=== PATIENT | female | born 1945 | race Caucasian/White ===

== ENCOUNTER → 2017-11-28 07:16 | Outpatient (CLI) | payer MEDICARE, OTHER, SELFPAY ==
--- NOTE | 2017-11-28 08:06 | DI.CT.S_ITS ---
PROCEDURE: CT CHEST ABD PEL W CON INDICATIONS: restaging after adjuvant chemotherapy. Endometrial cancer. TECHNIQUE: After the administration of oral and intravenous contrast, 5 mm thick sections acquired from the lung apices to the symphysis. 5 mm coronal and sagittal reformats were performed, with additional 7 mm coronal MIP reformats through the lungs. For radiation dose reduction, the following was used: automated exposure control, adjustment of mA and/or kV according to patient size. COMPARISON: [facility], CT, CHEST/ABD/PEL WITH CONTRAST, 05/23/2017, 7:42. FINDINGS: Image quality: Excellent. CHEST: Lungs and pleura: There is interval significant decrease in the amount of right pleural effusion with trace amount of residual right pleural effusion seen and mild adjacent bibasilar dependent atelectasis. No left-sided pleural effusion is noted. Trace amount of fluid and atelectasis along right major fissure is seen, significantly decreased since previous study. Previously described 5 mm right middle lobe nodule remains stable in size and appearance series 3 image 34.. Previously described 5 mm left lower lobe nodular density is no longer present and likely represent resolved atelectasis. Previously described 1.8 x 0.9 cm posterior right lower pleural thickening is again seen and not significantly changed. Series 2 image 50. No new pulmonary nodule or mass is seen. Central and peripheral airways appear patent and normal in caliber. Mediastinum: Heart size is normal. No pericardial effusion. No mediastinal or hilar adenopathy by size criteria. Thoracic aorta and central pulmonary arteries are normal in size. Esophagus is normal in caliber. No hiatal hernia. Right chest wall Port-A-Cath is again seen and unchanged. Chest wall: No axillary or supraclavicular adenopathy by size criteria. Thyroid gland again show well-circumscribed hypodensity involving inferior left thyroid lobe unchanged from prior study and may represent benign thyroid adenoma. Previously described right fifth rib sclerosis is not appreciated on the current study. ABDOMEN: Solid organs: Liver is normal in size and enhancement. Gallbladder is within normal limits. Biliary system is non dilated. Pancreas enhances normally. Spleen is normal in size and enhancement. No adrenal nodules. Bilateral parapelvic renal cysts are again seen. Mild prominence of right proximal to mid ureter is again noted, unchanged from prior study. No obstructing stone is noted. Peritoneum and bowel: Bowel loops demonstrate normal wall thickness and caliber. No free fluid or air. Fecal stasis throughout the colon is seen suggestive of mild constipation. Nodes and vessels: Previously described 4 x 0.9 cm ill-defined spiculated density in right paracentral posterior mesentery is not significantly changed in size and appearance. No gross mesenteric or retroperitoneal adenopathy is seen. IVC is normal in size. Stable ectasia of distal abdominal aorta is again seen and is unchanged in size and appearance. Small amount of contrast extending to mural thrombus is again seen at the level of ectasia and is unchanged. Miscellaneous: No ventral hernias. PELVIS: Genitourinary: Bladder wall thickness is normal. There is interval hysterectomy. No gross soft tissue mass is seen in the region of vaginal cuff. Miscellaneous: No inguinal hernias or adenopathy. Bones: No suspicious bony lesions. Stable and benign appearing sclerotic foci are again noted in right femoral head and right anterior acetabulum. No vertebral body compression fractures. IMPRESSION: 1. Interval significant decrease in amount of right-sided pleural effusion with trace amount of residual right pleural effusion and right basilar atelectasis. Interval significant decrease in amount of loculated fluid within right major fissure. 2. Stable 5 mm right middle lobe nodule likely represent benign process. Interval resolution of previously noted 5 mm left lower lobe nodule likely represent resolved focal infiltrate/atelectasis. Stable pleural thickening in posterior aspect of right lung base. 3. Stable appearance of spiculated density in posterior right paracentral mesentery. No evidence of adenopathy is seen in the chest, abdomen or pelvis. 4. Stable infrarenal abdominal aortic ectasia with thrombus formation a small amount of contrast extension, unchanged from previous study. 5. Stable bilateral parapelvic renal cysts and mild prominence of right proximal to mid-ureter. No obstructing renal stone is seen. 6. Interval hysterectomy. No discrete soft tissue mass is seen in the pelvis. Dictated by: Yassine Hale M.D. on 11/28/2017 at 10:59 Approved by: Yassine Hale M.D. on 11/28/2017 at 11:26
== END ==
PROVIDERS: Family Provider Family Medicine; PCP Family Medicine; Referring Provider Obstetrics & Gynecology; Visit Provider Internal Medicine Hematology & Oncology
DX: C54.1 Malignant neoplasm of endometrium (principal); R91.1 Solitary pulmonary nodule; N28.1 Cyst of kidney, acquired
CPT/HCPCS: 71260; 74177; Q9967

== ENCOUNTER → 2018-02-07 13:53 | Outpatient (CLI) | payer MEDICARE, OTHER, SELFPAY ==
--- NOTE | 2018-02-07 | DI.MG.S_ITS ---
BILATERAL DIGITAL SCREENING MAMMOGRAM 3D/2D WITH CAD: 02/07/2018 CLINICAL: Routine screening. Comparison is made to exams dated: 03/06/2013 mammogram, 09/15/2010 mammogram, 06/20/2009 mammogram, and 01/08/2007 mammogram - [facility]. The tissue of both breasts is heterogeneously dense. This may lower the sensitivity of mammography. Current study was also evaluated with a Computer Aided Detection (CAD) system. No significant masses, calcifications, or other findings are seen in either breast. There has been no significant interval change. IMPRESSION: NEGATIVE There is no mammographic evidence of malignancy. A 1 year screening mammogram is recommended. This exam was interpreted at Station ID: [id number]. NOTE: For mammograms, a report in lay terms will be sent to the patient. Approximately 15% of breast malignancies will not be visualized mammographically. In the management of a palpable breast mass, a negative mammogram must not discourage biopsy of a clinically suspicious lesion. Electronically Signed By: Chun hester/demarcus:02/07/2018 15:01:42 copy to: [facility], [facility], ph: [phone], fax: [phone] letter sent: Normal Exam ACR BI-RADS Category 1: Negative [id number]
== END ==
PROVIDERS: Family Provider Family Medicine; PCP Family Medicine; Visit Provider Family Medicine
DX: Z12.31 Encounter for screening mammogram for malignant neoplasm of breast (principal); M81.0 Age-related osteoporosis without current pathological fracture; Z78.0 Asymptomatic menopausal state
CPT/HCPCS: 77063; 77067; 77080

== ENCOUNTER → 2018-05-06 10:01 | Outpatient (CLI) | payer MEDICARE, OTHER, SELFPAY ==
--- NOTE | 2018-05-06 10:24 | DI.CT.S_ITS ---
PROCEDURE: CT CHEST ABD PEL W CON INDICATIONS: Surveillance TECHNIQUE: After the administration of oral and intravenous contrast, 5 mm thick sections acquired from the lung apices to the symphysis. 5 mm coronal and sagittal reformats were performed, with additional 7 mm coronal MIP reformats through the lungs. For radiation dose reduction, the following was used: automated exposure control, adjustment of mA and/or kV according to patient size. COMPARISON: [facility], CT, CHEST/ABD/PEL WITH CONTRAST, 05/23/2017, 7:42. [facility], CT, ABDOMEN/PELVIS WITH CONTRAST, 03/04/2017, 11:30. [facility], CT, CT CHEST ABD PEL W CON, 11/28/2017, 8:12. FINDINGS: Image quality: Excellent. CHEST: Lungs and pleura: A 4 mm diameter pulmonary nodule at the right lung base is less conspicuous than on the prior study dated 05/23/17 (series 3, image 37). A trace centrally hypodense, peripherally enhancing effusion is redemonstrated at the right lung base. Mediastinum: Heart size is normal. No pericardial effusion. No mediastinal or hilar adenopathy by size criteria. Thoracic aorta and central pulmonary arteries are normal in size. Scattered atheromatous calcifications are present within the aortic arch. Esophagus is normal in caliber. No hiatal hernia. Chest wall: No axillary or supraclavicular adenopathy by size criteria. A subcentimeter low density nodule is present within the left thyroid lobe. This appears slightly increased in size when compared with the study dated 05/23/17. ABDOMEN: Solid organs: Liver is normal in size and enhancement. Gallbladder is unremarkable. Biliary system is non dilated. Pancreas enhances normally. Spleen is normal in size and enhancement. No adrenal nodules. Kidneys demonstrate normal size and enhancement, without hydronephrosis. There are multiple bilateral low-density pararenal and cortical renal cysts. Cortical scarring is present within the right midpole suggesting old infection or infarct. Peritoneum and bowel: Bowel loops demonstrate normal wall thickness and caliber. No free fluid or air. Nodes and vessels: No retroperitoneal or mesenteric adenopathy by size criteria. The ill-defined region of mesenteric scarring within the right lower quadrant is less conspicuous than on the prior studies (series 2, images 79-82). A punctate focus of pneumoperitoneum persists in this region. Aorta and inferior vena cava are normal in size. Focal ectasia of the left aspect of the infrarenal abdominal aorta is redemonstrated. The neural thrombus is present along the lateral wall. Scattered atheromatous calcifications are present throughout the aorta and iliac arteries. Miscellaneous: No ventral hernias. PELVIS: Genitourinary: Bladder wall thickness is normal. Miscellaneous: No inguinal hernias or adenopathy. Bones: No suspicious bony lesions. No vertebral body compression fractures. IMPRESSION: 1. No findings to suggest tumor recurrence or metastasis. 2. Small, stable rim-enhancing pleural effusion at the right lung base. 3. Decreased conspicuity of the 4 mm right inferior lung nodule. 4. Decreased conspicuity of the probable mesenteric scar within the right lower quadrant. Dictated by: Vania Hernandez M.D. on 05/06/2018 at 14:01 Approved by: Vania Hernandez M.D. on 05/06/2018 at 14:20
== END ==
PROVIDERS: Family Provider Family Medicine; PCP Family Medicine; Visit Provider Nurse Practitioner Gerontology
DX: C54.9 Malignant neoplasm of corpus uteri, unspecified (principal); J90 Pleural effusion, not elsewhere classified
CPT/HCPCS: 36592; 71260; 74177; 80053; 85025; 86304; Q9967

== ENCOUNTER → 2018-08-08 13:21 | Outpatient (CLI) | payer MEDICARE, OTHER, SELFPAY ==
--- NOTE | 2018-08-08 14:10 | DI.CT.S_ITS ---
PROCEDURE: CT CHEST ABD PEL W CON INDICATIONS: rising tumor marker, Mullerian cancer TECHNIQUE: After the administration of oral and intravenous contrast, 5 mm thick sections acquired from the lung apices to the symphysis. 5 mm coronal and sagittal reformats were performed, with additional 7 mm coronal MIP reformats through the lungs. For radiation dose reduction, the following was used: automated exposure control, adjustment of mA and/or kV according to patient size. COMPARISON: [facility], CT, ABDOMEN/PELVIS WITH CONTRAST, 03/04/2017, 11:30. [facility], CT, CT CHEST ABD PEL W CON, 11/28/2017, 8:12. [facility], CT, CT CHEST ABD PEL W CON, 05/06/2018, 11:02. FINDINGS: Image quality: Excellent. CHEST: Lungs and pleura: Interval development of a well-defined mass or focal masslike consolidation in the posterior segment of the right upper lobe. Reference image 29/3. It measures 1.4 x 1.0 cm. No other pulmonary nodular densities. Development of mild pleural thickening along the major fissure of the right lung, possibly representing minimal fluid in the major fissure. Mild continued right basilar pleural thickening. Central and peripheral airways appear patent and normal in caliber. Mediastinum: Heart size is normal. No pericardial effusion. No mediastinal or hilar adenopathy by size criteria. Thoracic aorta and central pulmonary arteries are normal in size. Esophagus is normal in caliber. No hiatal hernia. Chest wall: No axillary or supraclavicular adenopathy by size criteria. Thyroid gland is unremarkable. ABDOMEN: Solid organs: Liver is normal in size and enhancement. Gallbladder is unremarkable. Biliary system is non dilated. Pancreas enhances normally. Spleen is normal in size and enhancement. No adrenal nodules. Extensive bilateral peripelvic renal cysts are present. The left ureter is of normal caliber. The right ureter is mildly chronically dilated. There is mild to moderate dilatation of the right renal collecting system. There is no delayed right nephrogram. The right ureter tapers to a normal caliber at approximately the midureter. Findings are stable. Peritoneum and bowel: Bowel loops demonstrate normal wall thickness and caliber. No free fluid or air. Nodes and vessels: No retroperitoneal or mesenteric adenopathy by size criteria. Aorta and inferior vena cava are normal in size. Miscellaneous: No ventral hernias. PELVIS: Genitourinary: Bladder wall thickness is normal. Miscellaneous: No inguinal hernias or adenopathy. Remote hysterectomy and bilateral resection of the ovaries. Bones: No suspicious bony lesions. No vertebral body compression fractures. IMPRESSION: 1. Question 1.4 x 1.0 cm metastatic lesion in the chest. 2. Remote hysterectomy and bilateral oophorectomy. 3. Stable mild right hydronephrosis and mild dilatation of the right ureter down to the level of the midureter. 4. Otherwise unremarkable CT abdomen and pelvis with contrast. Comment: Consider repeat chest CT in approximately 3 months to see whether the mass or masslike density in the right upper lobe resolves. Or, PET/CT may be helpful. Dictated by: Patel German M.D. on 08/08/2018 at 15:02 Approved by: Patel German M.D. on 08/08/2018 at 15:24
== END ==
PROVIDERS: PCP Family Medicine; Visit Provider Internal Medicine Hematology & Oncology
DX: C56.9 Malignant neoplasm of unspecified ovary (principal); N13.39 Other hydronephrosis; Q50.39 Other congenital malformation of ovary
CPT/HCPCS: 71260; 74177; Q9967

== ENCOUNTER → 2018-10-27 08:58 | Outpatient (CLI) | payer MEDICARE, OTHER, SELFPAY ==
--- NOTE | 2018-10-27 10:31 | DI.CT.S_ITS ---
PROCEDURE: CT ABDOMEN PELVIS W CON INDICATIONS: ovarian cancer TECHNIQUE: After the administration of oral and intravenous contrast, 5 mm thick sections acquired from the diaphragms to the symphysis. 5 mm thick coronal and sagittal reformats were performed. For radiation dose reduction, the following was used: automated exposure control, adjustment of mA and/or kV according to patient size. COMPARISON: [facility], CT, CHEST/ABD/PEL WITH CONTRAST, 05/23/2017, 7:42. [facility], CT, CT CHEST ABD PEL W CON, 11/28/2017, 8:12. [facility], CT, CT CHEST ABD PEL W CON, 05/06/2018, 11:02. [facility], CT, CT CHEST ABD PEL W CON, 08/08/2018, 14:09. [facility], CT, PE STUDY (CTA CHEST), 08/27/2016, 1:41. [facility], CT, ABDOMEN/PELVIS WITH CONTRAST, 03/04/2017, 11:30. FINDINGS: Image quality: Excellent. ABDOMEN: Lung bases: 4 mm pulmonary nodule is unchanged at the right lung base when compared with the CT dated 08/27/16. There is a small low density right pleural effusion which is slightly increased in size when compared with the CT dated 08/08/18. No left pleural effusion. Solid organs: Liver is normal in size and enhancement. Gallbladder is unremarkable. Biliary system is non-dilated. Pancreas enhances normally. Spleen is normal in size and enhancement. No adrenal nodules. There is likely dilatation of the right renal collecting system, and the superior ureter is moderately dilated. The ureter is abruptly tapered within the midportion which may be secondary to extrinsic compression from retroperitoneal scar or fibrosis. There are likely multiple left pararenal cysts. Several areas of focal cortical scarring are also present within the right kidney suggesting prior infarct or infection. Peritoneum and bowel: Stomach, small bowel, and colon loops are normal in caliber and wall thickness. The appendix is thin walled and gas filled. There are scattered sigmoid diverticula. No evidence for diverticulitis. No free fluid or air. Nodes and vessels: No retroperitoneal or mesenteric adenopathy. Aorta and inferior vena cava are normal in caliber. There are scattered atheromatous calcifications throughout the aorta and iliac arteries bilaterally. Miscellaneous: No ventral hernias. PELVIS: Genitourinary: Bladder wall thickness is normal. Miscellaneous: No inguinal hernias or adenopathy. Bones: No suspicious bony lesions. No vertebral body compression fractures. IMPRESSION: 1. No findings to suggest tumor recurrence or metastasis. 2. Slight increase in the size of the pleural effusion when compared with the study from July 2018. 3. Probable chronic dilatation of the right renal collecting system, although multiple pararenal cyst could also be considered in the differential. There is slightly increased dilatation of the superior right ureter suggesting partial obstruction in the midportion likely secondary to retroperitoneal scar or fibrosis. Dictated by: Vania Hernandez M.D. on 10/27/2018 at 11:26 Approved by: Vania Hernandez M.D. on 10/27/2018 at 11:39
== END ==
PROVIDERS: Family Provider Obstetrics & Gynecology; PCP Family Medicine; Visit Provider Internal Medicine Hematology & Oncology
DX: C56.9 Malignant neoplasm of unspecified ovary (principal); R91.1 Solitary pulmonary nodule; J90 Pleural effusion, not elsewhere classified
CPT/HCPCS: 74177; Q9967

== ENCOUNTER → 2018-12-18 09:57 | Outpatient (CLI) | payer MEDICARE, OTHER, SELFPAY ==
--- NOTE | 2018-12-18 10:12 | DI.CT.S_ITS ---
PROCEDURE: CT CHEST ABD PEL W CON INDICATIONS: ABD PAIN, CHEST PAINS TECHNIQUE: After the administration of oral and intravenous contrast, 5 mm thick sections acquired from the lung apices to the symphysis. 5 mm coronal and sagittal reformats were performed, with additional 7 mm coronal MIP reformats through the lungs. For radiation dose reduction, the following was used: automated exposure control, adjustment of mA and/or kV according to patient size. COMPARISON: [facility], CT, PE STUDY (CTA CHEST), 08/27/2016, 1:41. [facility], CT, CT ABDOMEN PELVIS W CON, 10/27/2018, 10:01. [facility], NM, NM PET CT FUSION SKULL 2 THIGH, 08/20/2018, 16:58. [facility], CT, CT CHEST ABD PEL W CON, 11/28/2017, 8:12. [facility], CT, CT CHEST ABD PEL W CON, 08/08/2018, 14:09. [facility], CT, CT CHEST ABD PEL W CON, 05/06/2018, 11:02. FINDINGS: Image quality: Excellent. CHEST: Lungs and pleura: No acute airspace opacities but there has been a significant interval increase in pleural effusion on the right with a component of both lungs scarring and atelectasis at the right lower lobe.. No pleural effusions or pneumothorax. Central and peripheral airways appear patent and normal in caliber. Mediastinum: Heart size is normal. No pericardial effusion. No mediastinal or hilar adenopathy by size criteria. Thoracic aorta and central pulmonary arteries are normal in size. Esophagus is normal in caliber. No hiatal hernia. Chest wall: No axillary or supraclavicular adenopathy by size criteria. Thyroid gland appears normal where well visualized. ABDOMEN: Solid organs: Liver is normal in size and enhancement. Gallbladder is partially contracted, free of inflammation or calculus. Biliary system is non dilated. Pancreas enhances normally. Spleen is normal in size and enhancement. No adrenal nodules. 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 Renal cortical thinning has not developed despite this pattern of collecting system prominence at least from August of 2016. No urinary tract stones are found. Peritoneum and bowel: Bowel loops demonstrate normal wall thickness and caliber. No free fluid or air. Nodes and vessels: No retroperitoneal or mesenteric adenopathy by size criteria. Aorta and inferior vena cava are normal in size. Miscellaneous: No ventral hernias. PELVIS: Genitourinary: Bladder wall thickness is normal. Miscellaneous: No inguinal hernias or adenopathy. Bones: No suspicious bony lesions. No vertebral body compression fractures. IMPRESSION: 1. There has been an appreciable increase in right pleural fluid raising concern for possible development of pleural carcinomatosis in this clinical circumstance of underlying ovarian carcinoma. 2. Right lung base atelectasis and scarring has increased with reference to the recent prior CT scanning from October of this year. 3. 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 This pattern has been previously present including in August of 2016 without interval development of renal cortical thinning or worsening of the hydronephrosis pattern. 4. Within the peritoneal space no abnormal ascites or evidence of omental caking or carcinomatosis is found. 5. It may be warranted to perform ultrasound-guided thoracentesis to assess for presence or absence of viable malignant cells within the right pleural space. Dictated by: Albino Patel M.D. on 12/18/2018 at 17:01 Approved by: Albino Patel M.D. on 12/18/2018 at 17:09
== END ==
PROVIDERS: Family Provider Obstetrics & Gynecology; PCP Family Medicine; Visit Provider Internal Medicine Hematology & Oncology
DX: J98.11 Atelectasis (principal); C56.9 Malignant neoplasm of unspecified ovary
CPT/HCPCS: 71260; 74177; Q9967

== ENCOUNTER → 2019-01-27 08:21 | Outpatient (CLI) | payer MEDICARE, OTHER, SELFPAY ==
--- NOTE | 2019-01-27 09:48 | DI.CT.S_ITS ---
PROCEDURE: CT CHEST ABD PEL W CON INDICATIONS: ovarian cancer TECHNIQUE: After the administration of oral and intravenous contrast, 5 mm thick sections acquired from the lung apices to the symphysis. 5 mm coronal and sagittal reformats were performed, with additional 7 mm coronal MIP reformats through the lungs. For radiation dose reduction, the following was used: automated exposure control, adjustment of mA and/or kV according to patient size. COMPARISON: [facility], CT, CT ABDOMEN PELVIS W CON, 10/27/2018, 10:01. [facility], NM, NM PET CT FUSION SKULL 2 THIGH, 08/20/2018, 16:58. [facility], CT, CT CHEST ABD PEL W CON, 08/08/2018, 14:09. [facility], CT, CT CHEST ABD PEL W CON, 05/06/2018, 11:02. [facility], CT, CT CHEST ABD PEL W CON, 11/28/2017, 8:12. [facility], CT, CT CHEST ABD PEL W CON, 12/18/2018, 10:51. FINDINGS: Image quality: Excellent. CHEST: Lungs and pleura: No acute consolidation. Scattered subsegmental atelectasis and/or scarring. Interval decrease in size of loculated appearing right pleural effusion with adjacent atelectasis. There is fissural fluid was also decreased. There is some pleural enhancement at the lung base raising possibility of exudative etiology. No pneumothorax. No left pleural effusion Mediastinum: Heart size is borderline enlarged. No pericardial effusion. Prominent precarinal lymph node on image 22 series 2 appears grossly unchanged in size. No pathologically enlarged hilar lymph nodes identified. Thoracic aorta and central pulmonary arteries are normal in size. Esophagus is normal in caliber. No hiatal hernia. Chest wall: No axillary or supraclavicular adenopathy by size criteria. Thyroid gland negative. ABDOMEN: Solid organs: Hepatic steatosis. No focal hepatic lesion identified. Gallbladder negative. Biliary system is non dilated. Pancreas enhances normally. Spleen is normal in size and enhancement. No adrenal nodules. Bilateral parapelvic cysts versus bilateral UPJ stenoses with grossly unchanged appearance. There is bilateral renal cortical thinning and mild atrophy/scarring, also unchanged Peritoneum and bowel: Bowel loops demonstrate normal wall thickness and caliber. No free fluid or air. Nodes and vessels: No retroperitoneal or mesenteric adenopathy by size criteria. Aorta and inferior vena cava are normal in size. Miscellaneous: No ventral hernias. PELVIS: Genitourinary: No pelvic mass identified. The bladder is grossly unremarkable. No adnexal abnormality is seen to suggest active metastatic disease. Rectum grossly unremarkable Miscellaneous: No inguinal hernias or adenopathy. Bones: No suspicious bony lesions. No vertebral body compression fractures. Diffuse spondylosis IMPRESSION: Decreasing, loculated right pleural effusion, including the fissural component. Technically, still unclear etiology. Elsewhere, grossly stable examination with no specific evidence of active metastatic disease. Additional chronic and incidental findings as above. Dictated by: Abdi Dunham M.D. on 01/27/2019 at 11:15 Approved by: Abdi Dunham M.D. on 01/27/2019 at 11:27
== END ==
PROVIDERS: Family Provider Obstetrics & Gynecology; PCP Family Medicine; Visit Provider Internal Medicine Hematology & Oncology
DX: C56.9 Malignant neoplasm of unspecified ovary (principal); K76.0 Fatty (change of) liver, not elsewhere classified
CPT/HCPCS: 71260; 74177; Q9967

== ENCOUNTER → 2019-03-17 12:23 | Outpatient (CLI) | payer MEDICARE, OTHER, SELFPAY ==
--- NOTE | 2019-03-17 13:06 | DI.CT.S_ITS ---
PROCEDURE: CT CHEST ABD PEL W CON INDICATIONS: ovarian cancer TECHNIQUE: After the administration of oral and intravenous contrast, 5 mm thick sections acquired from the lung apices to the symphysis. 5 mm coronal and sagittal reformats were performed, with additional 7 mm coronal MIP reformats through the lungs. For radiation dose reduction, the following was used: automated exposure control, adjustment of mA and/or kV according to patient size. COMPARISON: [facility], CT, CT CHEST ABD PEL W CON, 01/27/2019, 9:35. [facility], CT, CT CHEST ABD PEL W CON, 12/18/2018, 10:51. [facility], CT, CT CHEST ABD PEL W CON, 08/08/2018, 14:09. [facility], CT, CHEST/ABD/PEL WITH CONTRAST, 05/23/2017, 7:42. [facility], CT, THORAX WITH CONTRAST, 10/09/2016, 13:32. [facility], CT, PE STUDY (CTA CHEST), 08/27/2016, 1:41. FINDINGS: Image quality: Diagnostic. CHEST: Lungs and pleura: Previously mentioned a small right-sided pleural effusion extending along the major pulmonary fissure continues to decrease in size. No new pulmonary consolidation is evident. There is no pneumothorax. No lung masses appreciated. A subcentimeter nodule identified along the inferior margin of the right middle lobe is unchanged in size since multiple prior exams. No new pulmonary nodules are appreciated. Mediastinum: Mildly prominent precarinal lymph node is again evident, which is unchanged in size since the previous exam and measures up to approximately 9 mm in short axis (image 25, series 2). Heart size is normal. No pericardial effusion. Thoracic aorta and central pulmonary arteries are normal in size. There is aortic atherosclerosis. Esophagus is normal in caliber. No hiatal hernia. Chest wall and bones: No axillary or supraclavicular adenopathy by size criteria. No acute fracture or suspicious osseous lesion is identified. The degree of degenerative changes of the imaged spine have not significantly progressed. ABDOMEN: Solid organs: Liver is normal in size and enhancement. Gallbladder is not enlarged or inflamed. Biliary system is non dilated. Pancreas enhances normally. Spleen is normal in size and enhancement. No adrenal nodules. The kidneys are normal in size. Multiple cystic structures are seen within the bilateral renal pelvises. This appearance is similar to the prior study. However, there is enlargement of the right ureter with irregularity of the amor of the ureter and associated urothelial enhancement along the proximal aspect of the ureter. The left ureter is normal in course and caliber. No ureteral calculi are present. No renal calculi are evident. Areas of scarring involving the right kidney are again evident. The enhancement is symmetric when compared to the left kidney. Peritoneum and bowel: There is a small hiatal hernia. The stomach is otherwise unremarkable. There is mild stranding about the 2nd portion of the duodenum. Heterogeneity of the mesentery at this location of the inferior margin of the duodenum is present (image 78, series 2). This area of mesenteric edema is also located in a very close proximity to the appendix. The appendix appears to be normal in size, however. A moderate to large amount of residual stool is seen within the colon. No free fluid or loculated fluid collection is seen within the abdomen. No free air is evident. Nodes and vessels: No retroperitoneal or mesenteric adenopathy by size criteria. Aorta and inferior vena cava are normal in size. A saccular aneurysm arising from the infrarenal abdominal aorta above the level of the mesenteric artery takeoff and is unchanged since prior studies with the aneurysm sac measuring 2.5 x 1.7 x 2.1 cm (image 69, series 2). Bones: No acute fracture or suspicious osseous lesion is evident. Moderate degenerative changes of the lower lumbar spine are present. PELVIS: Genitourinary: Bladder wall thickness is normal. The uterus and ovaries are surgically absent. Miscellaneous: No inguinal hernias or adenopathy. No free fluid or loculated fluid collection is evident. Bones: No suspicious bony lesions. No acute pelvic fractures are evident. IMPRESSION: 1. Borderline prominent mediastinal lymph nodes. 2. No convincing evidence of metastatic disease to the chest, abdomen, or pelvis. 3. Small right-sided pleural effusion continues to decrease in size with corresponding atelectasis. 4. Unchanged right middle lobe pulmonary nodule. No new pulmonary nodules. 5. Enlarged heterogeneous proximal right ureter with adjacent mesenteric stranding along the inferior margin of the duodenum and adjacent to the appendix is of uncertain etiology and similar to multiple prior exams. This may represent scarring from previous infection, focal fibrotic change, mesenteric metastases, or chronic infection from either a duodenal or ureter source. Clinical correlation is recommended. Ureteroscopy may be of value. 6. 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 Dictated by: Yuri Mcdaniel M.D. on 03/17/2019 at 12:33 Approved by: Yuri Mcdaniel M.D. on 03/17/2019 at 12:59
== END ==
PROVIDERS: Family Provider Obstetrics & Gynecology; PCP Family Medicine; Visit Provider Internal Medicine Hematology & Oncology
DX: C56.9 Malignant neoplasm of unspecified ovary (principal); R59.0 Localized enlarged lymph nodes; I71.4 Abdominal aortic aneurysm, without rupture; R91.1 Solitary pulmonary nodule; J90 Pleural effusion, not elsewhere classified; R05 Cough; K44.9 Diaphragmatic hernia without obstruction or gangrene; J98.11 Atelectasis
CPT/HCPCS: 71260; 74177; 96523; Q9967

== ENCOUNTER → 2019-06-29 09:35 | Outpatient (CLI) | payer MEDICARE, OTHER, SELFPAY ==
--- NOTE | 2019-06-29 10:43 | DI.CT.S_ITS ---
PROCEDURE: CT CHEST ABD PEL W CON INDICATIONS: ovarian cancer TECHNIQUE: After the administration of oral and intravenous contrast, 5 mm thick sections acquired from the lung apices to the symphysis. 5 mm coronal and sagittal reformats were performed, with additional 7 mm coronal MIP reformats through the lungs. For radiation dose reduction, the following was used: automated exposure control, adjustment of mA and/or kV according to patient size. COMPARISON: [facility], CT, CT CHEST ABD PEL W CON, 03/17/2019, 13:13. FINDINGS: Image quality: Excellent. CHEST: Lungs and pleura: Scarring/atelectasis scattered in bilateral lower lung ivan are again seen, unchanged from prior study. Patient's known 4-5 mm oval nodule in medial aspect of left upper lobe remains unchanged in size and appearance. No new pulmonary nodule or mass is seen. Previously described small amount of pleural effusion extending along right major fissure has further decreased in size now measures up to 5 mm in thickness compared to 1 cm on previous study. Trace right pleural effusion and adjacent right basilar dependent atelectasis is seen. No pneumothorax. No left-sided pleural effusion. Central and peripheral airways appear patent and normal in caliber. Mediastinum: Heart size is mildly enlarged. No pericardial effusion. Borderline enlarged mediastinal lymph nodes are noted measures up to 9 mm in precarinal space. Thoracic aorta and central pulmonary arteries are normal in size. Esophagus is normal in caliber. There is a small hiatal hernia. Chest wall: No axillary or supraclavicular adenopathy by size criteria. Thyroid gland is within normal limits. Right chest wall Port-A-Cath tip is in SVC. ABDOMEN: Solid organs: Liver is normal in size and enhancement. Gallbladder is unremarkable.. Biliary system is non dilated. Pancreas enhances normally. Spleen is normal in size and enhancement. No adrenal nodules. Bilateral kidneys are normal in size. Bilateral peripelvic renal cystic changes are again seen, unchanged from prior study. Prominence of bilateral proximal ureters are also noted with no obstructing stone seen. Finding has improved compared to previous study. No significant perinephric fat stranding is noted on the current study. The Peritoneum and bowel: Bowel loops demonstrate normal wall thickness and caliber. No free fluid or air. Nodes and vessels: No retroperitoneal or mesenteric adenopathy by size criteria. Atherosclerotic calcifications throughout dominal aorta is seen. Patient's known saccular infrarenal abdominal aortic aneurysm remains unchanged in size and appearance. Miscellaneous: No ventral hernias. PELVIS: Genitourinary: Diffuse bladder wall thickness is noted. No discrete bladder wall mass. Uterus and bilateral ovaries are surgically absent. Miscellaneous: No inguinal hernias or adenopathy. Bones: No suspicious bony lesions. No vertebral body compression fractures. Degenerative endplate changes throughout thoracic and lumbar spine is seen. IMPRESSION: 1. Interval further decrease in size of patient's known partially loculated right pleural effusion with adjacent right upper and lower lobe atelectasis. Stable right middle lobe nodule. No new pulmonary nodule is seen. Airway is patent. 2. Borderline prominent mediastinal lymph nodes up to 9 mm in size. 3. No abdominal or pelvic lymphadenopathy. 4. Suggestion of bilateral peripelvic cysts and prominence of bilateral proximal ureters worse on the right side unchanged or slightly improved since previous study. No obstructing renal stone or ureteral stone is seen. Mild diffuse bladder wall thickening, no discrete bladder wall mass. Finding could indicate changes from prior infection, focal fibrotic scarring, or chronic infection. 5. 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 Dictated by: Yassine Hale M.D. on 06/29/2019 at 12:15 Approved by: Yassine Hale M.D. on 06/29/2019 at 12:52
== END ==
PROVIDERS: Family Provider Obstetrics & Gynecology; PCP Family Medicine; Referring Provider Internal Medicine Hematology & Oncology; Visit Provider Internal Medicine Hematology & Oncology
DX: C56.9 Malignant neoplasm of unspecified ovary (principal); J90 Pleural effusion, not elsewhere classified; R91.1 Solitary pulmonary nodule; J98.11 Atelectasis; I71.4 Abdominal aortic aneurysm, without rupture
CPT/HCPCS: 36591; 71260; 74177; 80053; 85025; 86304; Q9967

== ENCOUNTER → 2020-01-19 11:16 | Outpatient (CLI) | payer MEDICARE, OTHER, SELFPAY ==
--- NOTE | 2020-01-19 | DI.MG.S_ITS ---
BILATERAL DIGITAL SCREENING MAMMOGRAM 3D/2D WITH CAD: 01/19/2020 CLINICAL: Routine screening. Comparison is made to exams dated: 02/07/2018 mammogram, 03/06/2013 mammogram, and 09/15/2010 mammogram - [facility]. The tissue of both breasts is heterogeneously dense. This may lower the sensitivity of mammography. Current study was also evaluated with a Computer Aided Detection (CAD) system. No significant masses, calcifications, or other findings are seen in either breast. There has been no significant interval change. IMPRESSION: NEGATIVE There is no mammographic evidence of malignancy. A 1 year screening mammogram is recommended. This exam was interpreted at Station ID: [id number]. NOTE: For mammograms, a report in lay terms will be sent to the patient. Approximately 15% of breast malignancies will not be visualized mammographically. In the management of a palpable breast mass, a negative mammogram must not discourage biopsy of a clinically suspicious lesion. Electronically Signed By: Shailesh Mendoza M.D., jr/demarcus:01/19/2020 11:42:29 letter sent: Normal Exam ACR BI-RADS Category 1: Negative [id number]
== END ==
PROVIDERS: Family Provider Obstetrics & Gynecology; PCP Family Medicine; Referring Provider Family Medicine; Visit Provider Family Medicine
DX: Z12.31 Encounter for screening mammogram for malignant neoplasm of breast (principal)
CPT/HCPCS: 77063; 77067

== ENCOUNTER → 2020-02-09 09:39 | Outpatient (CLI) | payer MEDICARE, OTHER, SELFPAY | PROVIDERS: Family Provider Obstetrics & Gynecology; PCP Family Medicine; Referring Provider Family Medicine; Visit Provider Family Medicine | DX: M81.0 Age-related osteoporosis without current pathological fracture (principal); Z78.0 Asymptomatic menopausal state; Z85.43 Personal history of malignant neoplasm of ovary | CPT/HCPCS: 77080 ==

== ENCOUNTER 2020-08-11 10:25 | Emergency (ER) | payer MEDICARE, OTHER, SELFPAY ==
[2020-08-11] VITALS (11 sets, daily range): BP systolic 124–172; BP diastolic 59–78; PULSE 52–72; RESP 16–27; O2SAT 94–100; BMI 28.5
--- NOTE | 2020-08-11 10:35 | DI.RAD.S_ITS ---
PROCEDURE: XR CHEST 1V INDICATIONS: chest pain TECHNIQUE: One view of the chest was acquired. COMPARISON: [facility], , CHEST 2 VIEW, 05/11/2017, 0:54. FINDINGS: Surgical changes and devices: Right chest wall Port-A-Cath tip is in SVC. Lungs and pleura: There is trace amount of right pleural effusion/thickening. Left lung is clear. No focal infiltrate. No pneumothorax. Mediastinum: Mediastinal contours appear normal. Heart size is enlarged. Bones and chest wall: No suspicious bony lesions. Overlying soft tissues appear unremarkable. IMPRESSION: Likely chronic right pleural thickening/trace pleural effusion. No focal infiltrate. No pneumothorax. Dictated by: Yassine Hale M.D. on 08/11/2020 at 10:08 Approved by: Yassine Hale M.D. on 08/11/2020 at 10:08
[2020-08-11 10:51] LABS: Add Manual Diff / Slide Review NO; Basophils Absolute Auto 0 /uL (0-100); Basophils Percent Auto 0.7 % (0-2); Eosinophils Absolute Auto 0 /uL (0-450); Eosinophils Percent Auto 0.9 % (2-4); Hematocrit 31.3 % (36-46); Hemoglobin 10.7 g/dL (12.0-16.0); Lymphocytes Absolute Auto 1300 /uL (1100-4500); Lymphocytes Percent Auto 37.4 % (25-40); Mean Corpuscular HGB Conc 34.2 % (30-36); Mean Corpuscular Hemoglobin 41.6 PG (26-34); Mean Corpuscular Volume 121.7 fL (80-100); Monocytes Absolute Auto 400 /uL (0-900); Monocytes Percent Auto 12.5 % (3-14); Neutrophils Absolute Auto 1700 /uL (1500-7000); Neutrophils Percent Auto 48.5 % (50-75); Platelet Count 115 X10^3/uL (150-400); Red Blood Cell Count 2.57 X10^6/uL (4.0-5.2); Red Cell Distribution Width 18.3 % (11.6-14.8); White Blood Cell Count 3.5 X10^3/uL (4.5-11.0)
[2020-08-11 10:53] LABS: Prothrombin Time 11.6 SECONDS (10.1-12.7)
[2020-08-11 10:56] LABS: PTT Partial Thromboplastin Tim 30 SECONDS (26.4-36.2)
[2020-08-11 10:58] LABS: Alanine Aminotransferase 19 IU/L (<35); Albumin 4.1 g/dL (3.5-5.0); Albumin Globulin Ratio 1.5 (1.0-2.8); Alkaline Phosphatase 49 U/L (38-126); Aspartate Aminotransferase 27 IU/L (14-36); BUN Creatinine Ratio 27.1 (6-22); Bilirubin Total 0.5 mg/dL (0.2-1.3); Blood Urea Nitrogen 23 mg/dL (7-17); Calcium 9.5 mg/dL (8.4-10.2); Carbon Dioxide 26 mmol/L (22-32); Chloride 107 mmol/L (98-107); Creatine Kinase 45 U/L (30-135); Estimated Glomerular Filt Rate > 60.0 mL/min (>60); Globulin 2.8 g/dL (1.7-4.1); Glucose 105 mg/dL (80-110); HEMOLYSIS < 15 (0-50); Lipase 92 U/L (23-300); Potassium 3.9 mmol/L (3.4-5.1); Sodium 140 mmol/L (137-145); Total Protein 6.9 g/dL (6.3-8.2)
[2020-08-11 11:09] LABS: Troponin I < 0.012 ng/mL (0.01-0.034)
[2020-08-11 11:12] LABS: Macrocytosis 3+
[2020-08-11 11:13] LABS: Anisocytosis 2+
[2020-08-11 11:14] LABS: Poikilocytosis 1+
--- NOTE | 2020-08-11 11:38 | ED_ITS ---
HPI - Chest Pain General Chief Complaint: Chest Pain Stated Complaint: woke up w/pain in upper chest Time Seen by Provider: 08/11/20 11:34 Source: patient Mode of arrival: Ambulatory Limitations: no limitations History of Present Illness HPI narrative: 75-year-old female with known adenocarcinoma suspicious for david erian adenocarcinoma, and hypertension presenting today with left-sided chest pain. She states that she woke up and noted some left-sided discomfort. She has a lipoma on over her left clavicle states that it was slightly below low that about rib 3. The she denies any radiation of pain no shortness of breath with exertion. It is not reproducible with movement or deep breathing. She took Tylenol p.m. [facility] her to see what she should do. She was referred to the ED for further evaluation. He says now that she has been in the emergency department the pain seems to have eased up. She has never had pain like this in the past. She says that her mother and 2 siblings have coronary stents but she has no known coronary artery disease. 1 of her brothers had stents under the age of 55. complaint: chest pain Onset (ago): hour(s) Duration: constant Onset: during rest Pain location: left chest Quality: sharp Related Data Home Medications Medication Instructions Recorded Confirmed benazepril 5 mg PO QDAY #0 06/26/16 06/06/20 metoprolol tartrate 25 mg PO DAILY 02/25/20 06/06/20 calcium 600 mg PO DAILY 04/07/20 06/06/20 chondroitin sulfate A sodium 1,200 mg PO DAILY 04/07/20 06/06/20 [Chondroitin Sulfate] cranberry 650 mg PO DAILY 04/07/20 06/06/20 glucosamine sulfate [Glucosamine] 1,500 mg DAILY 04/07/20 06/06/20 vitamin B complex [B Complex] 1 tab PO DAILY 04/07/20 06/06/20 alendronate 70 mg PO QWEEK 05/05/20 06/06/20 Previous Rx's Medication Instructions Recorded olaparib 300 mg PO BID #120 tab 06/11/19 Allergies Allergy/AdvReac Type Severity Reaction Status Date / Time No Known Allergies Allergy Unknown Verified 10/31/17 11:17 [NO KNOWN ALLERGIES] Review of Systems Review of Systems ROS Unobtainable: All systems reviewed & are unremarkable except as noted in HPI and below Constitutional Constitutional: Denies chills, Denies fever(s), Denies frequent falls, Denies headache(s), Denies lethargy and Denies weakness ENT Ears, Nose, Mouth, and Throat: Denies headache(s) Cardiovascular Cardiovascular: Reports as per HPI, Denies dyspnea and Denies dyspnea on exertion Respiratory Respiratory: Denies cough, Denies dyspnea, Denies dyspnea on exertion and Denies wheezing Gastrointestinal Gastrointestinal: Denies abdominal pain, Denies change in bowel habits, Denies diarrhea, Denies nausea and Denies vomiting Genitourinary Genitourinary: Denies urinary hesitancy and Denies urinary incontinence Genitourinary: Denies urinary incontinence and Denies urinary hesitancy Musculoskeletal Musculoskeletal: Denies back pain and Denies myalgias Integumentary/Breasts Skin/Breast: Denies pruritus, Denies erythema, Denies rash and Denies wounds Neurologic Neurologic: Denies frequent falls, Denies headache(s) and Denies weakness Allergic/Immunologic Allergic/Immunologic: Denies wheezing Patient History Medical History Atypical chest pain Cardiac arrhythmia, unspecified Malignant pleural effusion Pleural effusion Surgical History History of cataract removal with insertion of prosthetic lens Social History Smoking Status: Never smoker Smoking Status: Never smoker Substance Use Type: does not use Exam Initial Vital Signs Initial Vital Signs: Vital Signs Pulse Rate 67 08/11/20 10:34 Respiratory Rate 27 H 08/11/20 10:34 Pulse Oximetry 94 08/11/20 10:34 GENERAL: Very talkative 75-year-old and in no acute distress. HEENT: Head atraumatic,EOMI, pupils reactive, face symmetric, moist mucous membranesy] CARDIOVASCULAR: Regular rate and rhythm without murmurs, rubs or gallops. Lipoma noted over left clavicle. Pain is between ribs 3 and 4. Not re producible to palpation. No rash. RESPIRATORY: Breath sounds equal bilaterally, no wheezes rales or rhonchi. ABDOMEN: Soft, nontender. Normoactive bowel sounds all 4 quadrants. No guarding or rebound. EXTREMITIES: Normal range of motion, no clubbing or edema. Neurovascularly intact NEUROLOGICAL: Alert and oriented x4.Normal gait and speech. Cranial nerves II through XII grossly intact. SKIN: Warm, dry, no laceration, no petechiae, no rashes or lesions. Scores HEART Score Heart Score history: Slightly Suspicious Heart Score EKG: Normal Heart Score Age: > or = 65 years old Heart Score risk factors: No known risk factors Heart Score troponin: < or = to normal limit Heart Score Total: 2 Course Orders Ordered: ED Orders 08/11/20 10:35 XR chest 1V Stat EKG-12 Lead Stat 08/11/20 10:36 Complete Blood Count AUTO DIFF Stat Comprehensive Metabolic Panel Stat Lipase Stat Partial Thromboplastin Time Stat Prothrombin Time INR Stat Troponin & CK Cardiac Panel Stat 08/11/20 12:19 CT chest abd pel w con Stat 08/11/20 12:32 Troponin I Stat Vital Signs Vital signs: Vital Signs - 8 hr 08/11/20 10:34 08/11/20 10:38 08/11/20 11:00 Pulse Rate 67 69 57 L Respiratory Rate 27 H 16 20 Blood Pressure 172/78 H Pulse Oximetry 94 99 100 08/11/20 11:30 08/11/20 11:53 08/11/20 12:00 Pulse Rate 58 L 57 L 55 L Respiratory Rate 20 20 18 Blood Pressure 126/59 L 132/62 Pulse Oximetry 99 100 100 08/11/20 12:07 08/11/20 12:36 08/11/20 13:00 Pulse Rate 59 L 72 52 L Respiratory Rate 26 H 19 Blood Pressure 151/64 H 144/64 H Pulse Oximetry 100 100 08/11/20 13:30 08/11/20 14:00 Pulse Rate 55 L 57 L Respiratory Rate 21 24 Blood Pressure 154/70 H 124/60 Pulse Oximetry 100 99 MDM - Chest Pain Lab Data Attestation: I reviewed the patient's lab results. Result diagrams: 08/11/20 10:36 08/11/20 10:36 Labs: Lab Results 08/11/20 08/11/20 08/11/20 Range/Units 10:36 10:36 10:36 WBC 3.5 L (4.5-11.0) X10^3/uL RBC 2.57 L (4.0-5.2) X10^6/uL Hgb 10.7 L (12.0-16.0) g/dL Hct 31.3 L (36-46) % MCV 121.7 H (80-100) fL MCH 41.6 H (26-34) PG MCHC 34.2 (30-36) % RDW 18.3 H (11.6-14.8) % Plt Count 115 L (150-400) X10^3/uL Neut % (Auto) 48.5 L (50-75) % Lymph % (Auto) 37.4 (25-40) % [place] % (Auto) 12.5 (3-14) % Eos % (Auto) 0.9 L (2-4) % Baso % (Auto) 0.7 (0-2) % Neut # (Auto) 1700 (4956-1295) /uL Lymph # (Auto) 1300 (3288-7521) /uL [place] # (Auto) 400 (0-900) /uL Eos # (Auto) 0 (0-450) /uL Baso # (Auto) 0 (0-100) /uL RBC Morphology See below Poikilocytosis 1+ H Anisocytosis 2+ H Macrocytosis 3+ H PT 11.6 (10.1-12.7) SECONDS INR 1.0 (0.9-1.3) APTT 30 (26.4-36.2) SECONDS Sodium 140 (137-145) mmol/L Potassium 3.9 (3.4-5.1) mmol/L Chloride 107 (98-107) mmol/L Carbon Dioxide 26 (22-32) mmol/L BUN 23 H (7-17) mg/dL Creatinine 0.85 (0.52-1.04) mg/dL Estimated GFR > 60.0 (>60) mL/min BUN/Creatinine Ratio 27.1 H (6-22) Glucose 105 (80-110) mg/dL Calcium 9.5 (8.4-10.2) mg/dL Total Bilirubin 0.5 (0.2-1.3) mg/dL AST 27 (14-36) IU/L ALT 19 (<35) IU/L Alkaline Phosphatase 49 (38-126) U/L Total Creatine Kinase 45 (30-135) U/L CK-MB (CK-2) TNP CK-MB (CK-2) Rel Index TNP Troponin I < 0.012 (0.01-0.034) ng/mL Total Protein 6.9 (6.3-8.2) g/dL Albumin 4.1 (3.5-5.0) g/dL Globulin 2.8 (1.7-4.1) g/dL Albumin/Globulin Ratio 1.5 (1.0-2.8) Lipase 92 (23-300) U/L 08/11/20 Range/Units 12:32 WBC (4.5-11.0) X10^3/uL RBC (4.0-5.2) X10^6/uL Hgb (12.0-16.0) g/dL Hct (36-46) % MCV (80-100) fL MCH (26-34) PG MCHC (30-36) % RDW (11.6-14.8) % Plt Count (150-400) X10^3/uL Neut % (Auto) (50-75) % Lymph % (Auto) (25-40) % [place] % (Auto) (3-14) % Eos % (Auto) (2-4) % Baso % (Auto) (0-2) % Neut # (Auto) (4558-1647) /uL Lymph # (Auto) (3887-8940) /uL [place] # (Auto) (0-900) /uL Eos # (Auto) (0-450) /uL Baso # (Auto) (0-100) /uL RBC Morphology Poikilocytosis Anisocytosis Macrocytosis PT (10.1-12.7) SECONDS INR (0.9-1.3) APTT (26.4-36.2) SECONDS Sodium (137-145) mmol/L Potassium (3.4-5.1) mmol/L Chloride (98-107) mmol/L Carbon Dioxide (22-32) mmol/L BUN (7-17) mg/dL Creatinine (0.52-1.04) mg/dL Estimated GFR (>60) mL/min BUN/Creatinine Ratio (6-22) Glucose (80-110) mg/dL Calcium (8.4-10.2) mg/dL Total Bilirubin (0.2-1.3) mg/dL AST (14-36) IU/L ALT (<35) IU/L Alkaline Phosphatase (38-126) U/L Total Creatine Kinase (30-135) U/L CK-MB (CK-2) CK-MB (CK-2) Rel Index Troponin I < 0.012 (0.01-0.034) ng/mL Total Protein (6.3-8.2) g/dL Albumin (3.5-5.0) g/dL Globulin (1.7-4.1) g/dL Albumin/Globulin Ratio (1.0-2.8) Lipase (23-300) U/L Imaging Data Chest x-ray: Radiologist's Impression: PROCEDURE: XR CHEST 1V INDICATIONS: chest pain TECHNIQUE: One view of the chest was acquired. COMPARISON: [facility], CR, CHEST 2 VIEW, 05/11/2017, 0:54. FINDINGS: Surgical changes and devices: Right chest wall Port-A-Cath tip is in SVC. Lungs and pleura: There is trace amount of right pleural effusion/thickening. Left lung is clear. No focal infiltrate. No pneumothorax. Mediastinum: Mediastinal contours appear normal. Heart size is enlarged. Bones and chest wall: No suspicious bony lesions. Overlying soft tissues appear unremarkable. IMPRESSION: Likely chronic right pleural thickening/trace pleural effusion. No focal infiltrate. No pneumothorax. Dictated by: Yassine Hale M.D. on 08/11/2020 at 10:08 CT scan - chest: Radiologist's Impression: PROCEDURE: CT CHEST ABD PEL W CON INDICATIONS: left sided chest pain with known cancer TECHNIQUE: After the administration of oral and intravenous contrast, 5 mm thick sections acquired from the lung apices to the symphysis. 5 mm coronal and sagittal reformats were performed, with additional 7 mm coronal MIP reformats through the lungs. For radiation dose reduction, the following was used: automated exposure control, adjustment of mA and/or kV according to patient size. COMPARISON: [facility], CT, CT CHEST ABD PEL W CON, 03/17/2019, 13:13. [facility], CT, CT CHEST ABD PEL W CON, 06/29/2019, 10:31. FINDINGS: Image quality: Excellent. CHEST: Lungs and pleura: 3 x 6 mm oval nodule is seen in antral medial aspect of right middle lobe previously measures 4-5 mm in size series 3, image 167 and on previous s tudy series 3, image 137. No new pulmonary nodule or mass is seen. Scattered scarring/atelectasis in bilateral lung ivan are again seen. Previously noted small loculated pleural effusion within major fissure on the right side is again seen measures up to 5 mm in thickness unchanged from prior study series 3, image 129. Chronic appearing trace right pleural effusion and atelectasis in posterior medial aspect of right lower lobe is seen not significantly changed from prior study series 2, image 47. No pneumothorax. Central and peripheral airways appear patent and normal in caliber. Mediastinum: Heart size is enlarged. No pericardial effusion. 1.4 x 2.3 cm precarinal lymph node is seen series 2, image 25. This was previously measured at 9 mm in short axis diameter. 9 mm subcarinal node is seen series 2, image 28. Mild atherosclerotic disease is seen. Thoracic aorta and central pulmonary arteries are normal in size. Esophagus is normal in caliber. There is a small hiatal hernia. Chest wall: No axillary or supraclavicular adenopathy by size criteria. Thyroid gland is normal in size. Subcentimeter hypodense areas are seen in bilateral thyroid lobes measures 5-6 mm in size series 2, image 6. Right chest wall Port-A-Cath tip is in SVC. ABDOMEN: Solid organs: Liver is normal in size and enhancement. Gallbladder is distended, and show no gross abnormality. Biliary system is non dilated. Pancreas enhances normally. Spleen is normal in size and enhancement. No adrenal nodules. Bilateral kidneys show normal size and enhancement. Bilateral peripelvic renal cystic changes are again seen unchanged from prior study. Slight prominence of bilateral proximal ureters slightly improved compared to prior study. No obstructing stone is seen. No perinephric fat stranding. Small bilateral renal cysts are seen. Peritoneum and bowel: Bowel loops demonstrate normal wall thickness and caliber. No free fluid or air. Mild fecal stasis in the colon is seen. No abscess collection. Nodes and vessels: No retroperitoneal or mesenteric adenopathy by size criteria. Saccular aneurysm involving infrarenal abdominal aorta remains unchanged in size and appearance. Moderate atherosclerotic calcifications are seen throughout abdominal aorta. Miscellaneous: No ventral hernias. PELVIS: Genitourinary: Urinary bladder is well distended. No significant wall thickening is seen on the current study. No discrete bladder wall mass. Patient is status post hysterectomy and bilateral oophorectomy. Miscellaneous: No inguinal hernias or adenopathy. Bones: No suspicious bony lesions. No vertebral body compression fractures. 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 IMPRESSION: 1. Stable appearing chronic small right pleural effusion with partially loculated fluid extending to right major fissure unchanged from prior study. Adjacent atelectasis and pleural thickening in posterior medial aspect of right lower lobe is again seen and not significantly changed. 2. Previously described 4-5 mm right middle lobe nodule appears slightly more elongated and better defined on the current study and measures 6 x 3 mm in size. No new pulmonary nodule is seen. No pneumothorax. 3. Interval slight increase in size of patient's known subcarinal lymph node now measures up to 1.4 cm in short axis diameter. No other enlarged lymph nodes are seen in chest, abdomen or pelvis. 4. Stable appearing bilateral peripelvic renal cysts and mild prominence of bilateral proximal ureters improved since previous study no obstructing stone or ureteral stone is seen. No significant bladder wall thickening is noted on the current study. 5. No suspicious bony lesion is identified. Dictated by: Yassine Hale M.D. on 08/11/2020 at 12:05 Approved by: Yassine Hale M.D. on 08/11/2020 at 12:37 ECG Data Attestation: I personally reviewed and interpreted this ECG as follows: Prior ECG tracings: available for review Interpretation: Normal sinus rhythm rate 59 p.r. interval 162 QRS [address] changes MDM Narrative Medical decision making narrative: Patient has been chest pain-free while in the emergency department. Pain seems atypical and cardiac in nature. The CT at chest and abdomen seem stable. She has 2-troponin. At this time I recommend outpatient follow-up and return if needed. I discussed all findings with the patient, Education has been performed regarding treatment plan, diagnosis, warning signs and symptoms and all concerns have been addressed. Verbally agree with and understood all of the above. Discharge Plan Departure Patient Disposition: Home Clinical Impression: Atypical chest pain Instructions: DI for Atypical Chest Pain Activity Restrictions/Additional Instructions: *You have been diagnosed with atypical chest pain *What to do: At this time you do not need to stay in the hospital for further testing however you still may need a stress test and or echocardiogram please talk with your primary care provider. *Continue to take medications as directed *Follow up with your primary care provider in 2-3 days *Return to ER if you should have worsening or new chest pain, shortness of breath or any new, worsening or concerning symptoms Prescriptions: No Action benazepril 10 MG tablet 5 mg PO QDAY Qty: 0 RF: 0 olaparib 150 mg Tablet 300 mg PO BID Qty: 120 RF: 11 metoprolol tartrate 25 MG tablet 25 mg PO DAILY RF: 0 calcium 600 mg Capsule 600 mg PO DAILY RF: 0 B Complex Tablet Extended Release 1 tab PO DAILY RF: 0 Chondroitin Sulfate 400 mg Capsule 1,200 mg PO DAILY RF: 0 cranberry 500 mg Capsule 650 mg PO DAILY RF: 0 glucosamine sulfate [Glucosamine] 750 mg Tablet 1,500 mg DAILY RF: 0 alendronate 70 mg Tablet 70 mg PO QWEEK RF: 0 Referrals: Kalani Ogden MD [Primary Care Provider] -
--- NOTE | 2020-08-11 12:19 | DI.CT.S_ITS ---
PROCEDURE: CT CHEST ABD PEL W CON INDICATIONS: left sided chest pain with known cancer TECHNIQUE: After the administration of oral and intravenous contrast, 5 mm thick sections acquired from the lung apices to the symphysis. 5 mm coronal and sagittal reformats were performed, with additional 7 mm coronal MIP reformats through the lungs. For radiation dose reduction, the following was used: automated exposure control, adjustment of mA and/or kV according to patient size. COMPARISON: [facility], CT, CT CHEST ABD PEL W CON, 03/17/2019, 13:13. [facility], CT, CT CHEST ABD PEL W CON, 06/29/2019, 10:31. FINDINGS: Image quality: Excellent. CHEST: Lungs and pleura: 3 x 6 mm oval nodule is seen in antral medial aspect of right middle lobe previously measures 4-5 mm in size series 3, image 167 and on previous study series 3, image 137. No new pulmonary nodule or mass is seen. Scattered scarring/atelectasis in bilateral lung ivan are again seen. Previously noted small loculated pleural effusion within major fissure on the right side is again seen measures up to 5 mm in thickness unchanged from prior study series 3, image 129. Chronic appearing trace right pleural effusion and atelectasis in posterior medial aspect of right lower lobe is seen not significantly changed from prior study series 2, image 47. No pneumothorax. Central and peripheral airways appear patent and normal in caliber. Mediastinum: Heart size is enlarged. No pericardial effusion. 1.4 x 2.3 cm precarinal lymph node is seen series 2, image 25. This was previously measured at 9 mm in short axis diameter. 9 mm subcarinal node is seen series 2, image 28. Mild atherosclerotic disease is seen. Thoracic aorta and central pulmonary arteries are normal in size. Esophagus is normal in caliber. There is a small hiatal hernia. Chest wall: No axillary or supraclavicular adenopathy by size criteria. Thyroid gland is normal in size. Subcentimeter hypodense areas are seen in bilateral thyroid lobes measures 5-6 mm in size series 2, image 6. Right chest wall Port-A-Cath tip is in SVC. ABDOMEN: Solid organs: Liver is normal in size and enhancement. Gallbladder is distended, and show no gross abnormality. Biliary system is non dilated. Pancreas enhances normally. Spleen is normal in size and enhancement. No adrenal nodules. Bilateral kidneys show normal size and enhancement. Bilateral peripelvic renal cystic changes are again seen unchanged from prior study. Slight prominence of bilateral proximal ureters slightly improved compared to prior study. No obstructing stone is seen. No perinephric fat stranding. Small bilateral renal cysts are seen. Peritoneum and bowel: Bowel loops demonstrate normal wall thickness and caliber. No free fluid or air. Mild fecal stasis in the colon is seen. No abscess collection. Nodes and vessels: No retroperitoneal or mesenteric adenopathy by size criteria. Saccular aneurysm involving infrarenal abdominal aorta remains unchanged in size and appearance. Moderate atherosclerotic calcifications are seen throughout abdominal aorta. Miscellaneous: No ventral hernias. PELVIS: Genitourinary: Urinary bladder is well distended. No significant wall thickening is seen on the current study. No discrete bladder wall mass. Patient is status post hysterectomy and bilateral oophorectomy. Miscellaneous: No inguinal hernias or adenopathy. Bones: No suspicious bony lesions. No vertebral body compression fractures. 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 IMPRESSION: 1. Stable appearing chronic small right pleural effusion with partially loculated fluid extending to right major fissure unchanged from prior study. Adjacent atelectasis and pleural thickening in posterior medial aspect of right lower lobe is again seen and not significantly changed. 2. Previously described 4-5 mm right middle lobe nodule appears slightly more elongated and better defined on the current study and measures 6 x 3 mm in size. No new pulmonary nodule is seen. No pneumothorax. 3. Interval slight increase in size of patient's known subcarinal lymph node now measures up to 1.4 cm in short axis diameter. No other enlarged lymph nodes are seen in chest, abdomen or pelvis. 4. Stable appearing bilateral peripelvic renal cysts and mild prominence of bilateral proximal ureters improved since previous study no obstructing stone or ureteral stone is seen. No significant bladder wall thickening is noted on the current study. 5. No suspicious bony lesion is identified. Dictated by: Yassine Hale M.D. on 08/11/2020 at 12:05 Approved by: Yassine Hale M.D. on 08/11/2020 at 12:37
[2020-08-11 13:05] LABS: Troponin I < 0.012 ng/mL (0.01-0.034)
== END 2020-08-11 14:21 | disposition home or self-care (01) ==
PROVIDERS: Emergency Provider Emergency Medicine; Family Provider Obstetrics & Gynecology; PCP Family Medicine
DX: R07.89 Other chest pain (principal); C56.9 Malignant neoplasm of unspecified ovary
CPT/HCPCS: 36415; 71045; 71260; 74177; 80053; 82550; 83690; 84484; 85025; 85610; 85730; 93005; 93010; 99211; 99285

== ENCOUNTER → 2020-11-14 09:29 | Outpatient (CLI) | payer MEDICARE, OTHER, SELFPAY ==
--- NOTE | 2020-11-14 09:31 | DI.CT.S_ITS ---
PROCEDURE: CT CHEST ABD PEL W CON INDICATIONS: ovarian cancer TECHNIQUE: After the administration of oral and intravenous contrast, axial sections acquired from the supraclavicular neck to the pubic symphysis. Coronal and sagittal reformats were performed. For radiation dose reduction, the following was used: automated exposure control, adjustment of mA and/or kV according to patient size. COMPARISON: [facility], CT, CHEST/ABD/PEL WITH CONTRAST, 05/23/2017, 7:42. [facility], [place], [place] PET CT FUSION SKULL 2 THIGH, 08/20/2018, 16:58. [facility], CT, CT CHEST ABD PEL W CON, 06/29/2019, 10:31. [facility], CT, CT CHEST ABD PEL W CON, 03/17/2019, 13:13. [facility], CT, CT CHEST ABD PEL W CON, 01/27/2019, 9:35. [facility], CT, CT CHEST ABD PEL W CON, 12/18/2018, 10:51. [facility], CT, CT ABDOMEN PELVIS W CON, 10/27/2018, 10:01. [facility], CT, CT CHEST ABD PEL W CON, 08/11/2020, 12:18. FINDINGS: Image quality: Excellent. CHEST: Lower Neck: No enlarged lymph nodes. Thyroid: Within normal limits. Axillae: No enlarged lymph nodes. Chest Wall: Unremarkable. Lungs and Airways: Small lung nodules are present in right lung, unchanged in size. Nodule 1: 5 mm; Sears3 image 171; right middle lobe; stable. Nodule 2: 4 mm; series 3 image 138; right upper lobe along the minor fissure; stable. Nodules 3: 5 mm series 3, image 130; right upper lobe anterior medially; stable. Pleura: There is a small right pleural effusion with a right basilar component and intrafissure component, slightly increased in size. For example, the right basilar component measures 2.3 cm in thickness on the current examination, which measured 1.3 cm on 08/11/2020. The intra fissure component measures 9 mm in thickness involving the posterior aspect of the right major fissure, which previously measured 2 mm. Heart: Heart size is normal. No pericardial effusion. Thoracic Vessels: The aorta and pulmonary arteries demonstrate normal size. Mediastinum and [place]: A 1.7 x 2.4 cm precarinal lymph node is identified, previously 1.4 by 2.1 cm on 08/11/2020. There is a 1.0 x 1.5 cm subcarinal lymph node, previously 0.9 by 1.3 cm. Mildly enlarged right hilar lymph node measures 1.5 cm, unchanged. Esophagus: No wall thickening. Small hiatal hernia. ABDOMEN: Liver: Unremarkable. Gallbladder: Unremarkable. Biliary ducts: Unremarkable. Pancreas: Unremarkable. Spleen: Unremarkable. Adrenal Glands: Unremarkable. Kidneys and Ureters: Bilateral parapelvic renal cysts are again noted. Stomach and Bowel: There is gastric antral thickening, unchanged. There is a large amount of stool in colon. Peritoneum: There is a small amount of free peritoneal fluid along the inferior margin of liver and within the pelvis, which is new. No free air. Ventral Wall: No hernia. Abdominal Nodes: No retroperitoneal or mesenteric adenopathy by size criteria. Vessels: Partially thrombosed abdominal aortic aneurysm is again noted involving the left lateral aortic wall, demonstrating no significant change. PELVIS: Pelvic Organs: Hysterectomy. There is a small amount of ascites in pelvis measuring 1.4 x 2.4 cm, new since the last exam. Just anterior to the fluid collection, there is a soft tissue measuring 1.1 x 1.8 x 2.2 cm, which is associated with the hysterectomy stump and appears minimally changed. Bladder: The bladder is not fully distended. There is bladder wall thickening anteriorly.. Pelvic Nodes: No enlarged lymph nodes. Miscellaneous: No inguinal hernias are seen. Bones: Unremarkable. Degenerative changes in thoracic and lumbar spine. IMPRESSION: 1. Slight increase in size of small right pleural effusion, concerning for metastasis. 2. Slight interval enlargement mediastinal lymph nodes concerning for metastasis. 3. A small amount of free fluid in pelvis, new since the last exam, concerning for metastasis. 4. Stable small pulmonary nodules in right lung. 5. Bladder wall thickening anteriorly. Bladder is, however, no fully distended. Dictated by: Forrest Reyna M.D. on 11/14/2020 at 11:54 Approved by: Forrest Reyna M.D. on 11/14/2020 at 13:00
== END ==
PROVIDERS: Family Provider Obstetrics & Gynecology; PCP Family Medicine; Referring Provider Internal Medicine Hematology & Oncology; Visit Provider Internal Medicine Hematology & Oncology
DX: C56.9 Malignant neoplasm of unspecified ovary (principal); R91.8 Other nonspecific abnormal finding of lung field; J90 Pleural effusion, not elsewhere classified; R59.0 Localized enlarged lymph nodes; K44.9 Diaphragmatic hernia without obstruction or gangrene; I71.4 Abdominal aortic aneurysm, without rupture
CPT/HCPCS: 71260; 74177

== ENCOUNTER 2021-04-26 11:05 | Emergency (ER) | payer MEDICARE, OTHER, SELFPAY ==
[2021-04-26] VITALS (18 sets, daily range): BP systolic 146–211; BP diastolic 63–89; PULSE 65–98; RESP 14–25; TEMP 37.1; O2SAT 97–100; BMI 25.3
--- NOTE | 2021-04-26 11:33 | DI.RAD.S_ITS ---
PROCEDURE: XR CHEST 1V INDICATIONS: hypertension TECHNIQUE: One view of the chest was acquired. COMPARISON: [facility], [place], [place] PET CT FUSION SKULL 2 THIGH, 02/15/2021, 10:22. [facility], [place], XR CHEST 1V, 08/11/2020, 10:47. FINDINGS: Surgical changes and devices: Tunneled right port device is present. Lungs and pleura: Interval enlargement of small right pleural effusion. Lungs are otherwise clear. No pneumothorax. Mediastinum: Mediastinal contours appear stable. Heart size is normal. Bones and chest wall: No suspicious bony lesions. Overlying soft tissues appear unremarkable. IMPRESSION: Interval increase in size of small right pleural effusion. Otherwise, no acute airspace opacities identified. Dictated by: Moisés Colindrse M.D. on 04/26/2021 at 12:19 Approved by: Moisés Colindres M.D. on 04/26/2021 at 12:21
[2021-04-26 11:50] LABS: Add Manual Diff / Slide Review YES; Hemoglobin 7.9 g/dL (12.0-16.0); Mean Corpuscular HGB Conc 31.5 % (30-36); Mean Corpuscular Hemoglobin 27.8 PG (26-34); Mean Corpuscular Volume 88.3 fL (80-100); Platelet Count 95 X10^3/uL (150-400); Red Blood Cell Count 2.83 X10^6/uL (4.0-5.2); Red Cell Distribution Width 43.5 % (11.6-14.8); White Blood Cell Count 4.3 X10^3/uL (4.5-11.0)
[2021-04-26 11:53] LABS: INR 1.1 (0.9-1.3); Prothrombin Time 12.7 SECONDS (10.1-12.7)
[2021-04-26 11:56] LABS: PTT Partial Thromboplastin Tim 32 SECONDS (26.4-36.2)
[2021-04-26 11:58] LABS: Alanine Aminotransferase 27 IU/L (<35); Albumin 3.8 g/dL (3.5-5.0); Albumin Globulin Ratio 1.2 (1.0-2.8); Alkaline Phosphatase 78 U/L (38-126); Aspartate Aminotransferase 26 IU/L (14-36); BUN Creatinine Ratio 20.5 (6-22); Bilirubin Total 0.6 mg/dL (0.2-1.3); Blood Urea Nitrogen 16 mg/dL (7-17); Calcium 9.2 mg/dL (8.4-10.2); Carbon Dioxide 26 mmol/L (22-32); Chloride 108 mmol/L (98-107); Creatine Kinase < 20 U/L (30-135); Estimated Glomerular Filt Rate > 60.0 mL/min (>60); Globulin 3.3 g/dL (1.7-4.1); Glucose 101 mg/dL (80-110); HEMOLYSIS < 15 (0-50); Potassium 4.8 mmol/L (3.4-5.1); Sodium 139 mmol/L (137-145); Total Protein 7.1 g/dL (6.3-8.2)
[2021-04-26 12:09] LABS: Troponin I < 0.012 ng/mL (0.01-0.034)
[2021-04-26 12:16] LABS: Neutrophils Absolute Manual 1548 /uL (3000-5900); Nucleated Red Blood Cells 2 #/Diff; Total Cells Counted 50
[2021-04-26 12:17] LABS: Anisocytosis 3+; Hypochromasia 3+; Poikilocytosis 2+; Polychromasia 1+; Target Cells 2+
[2021-04-26 12:33] LABS: Thyroid Stimulating Hormone 1.66 uIU/mL (0.47-4.68)
--- NOTE | 2021-04-26 13:21 | PC.NURSE ---
pt called to report high blood pressure and headache. pt is currently being seen in the ED.
[2021-04-26] MEDS: SODIUM CHLORIDE 0.9% 1,000 ML 150 ML IV (13:26)
[2021-04-26] MEDS: AMLODIPINE 5 MG TABLET PO (13:26)
--- NOTE | 2021-04-26 14:52 | ED_ITS ---
HPI - Arrhythmia/Palpitations General Chief Complaint: Arrhythmia/Palpitations Stated Complaint: BP too high, Abnormal EKG- sent by Time Seen by Provider: 04/26/21 12:46 Source: patient Mode of arrival: Ambulatory History of Present Illness HPI narrative: 76-year-old woman with history of hypertension, gout and stage IV ovarian /mullerian cancer currently getting chemotherapy infusions every 3 weeks presents with concerns for blood pressure. 4-5 days ago she began experiencing pain in the right ankle and started taking indomethacin for a gout flare. This has been helping in the ankle is improving. 3-4 days ago she started noting that she was having more pounding in her head and last night had headache and could hear her heart enough that she was unable to sleep. She was seen in her primary care physician's office this morning and noted to have elevated blood pressure (baseline averages are in the 120s over 170 range) pressure type headache over the back of her head and heart rhythm irregularities. She was sent to the emergency room for further evaluation. She denies chest pain, dyspnea, orthopnea, worsening lower extremity edema aside from the edema associated with gout in the right ankle, no vision changes no numbness or tingling no weakness or other paresthesias. She has had no recent fevers, chills, cough, vomiting, diarrhea, abdominal pain. Related Data Home Medications Medication Instructions Recorded Confirmed benazepril 10 mg tablet 5 mg PO QDAY #0 06/26/16 02/21/21 metoprolol tartrate 25 mg tablet 25 mg PO DAILY 02/25/20 02/21/21 calcium 600 mg capsule 600 mg PO DAILY 04/07/20 02/21/21 chondroitin sulfate A sodium 400 1,200 mg PO DAILY 04/07/20 02/21/21 mg capsule cranberry 500 mg capsule 650 mg PO DAILY 04/07/20 02/21/21 glucosamine sulfate 750 mg tablet 1,500 mg DAILY 04/07/20 02/21/21 vitamin B complex 1 tab PO DAILY 04/07/20 02/21/21 alendronate 70 mg tablet 70 mg PO QWEEK 05/05/20 02/21/21 Previous Rx's Medication Instructions Recorded benazepril 10 mg tablet 20 mg PO DAILY #60 tab 04/26/21 colchicine 0.6 mg tablet 0.6 mg PO DAILY #3 tab 04/26/21 Allergies Allergy/AdvReac Type Severity Reaction Status Date / Time No Known Allergies Allergy Unknown Verified 04/26/21 11:29 [NO KNOWN ALLERGIES] Review of Systems Review of Systems Narrative: Remainder of complete review of systems is otherwise unremarkable except for that included in the HPI. Patient History Medical History Atypical chest pain Cardiac arrhythmia, unspecified Malignant pleural effusion Pleural effusion Surgical History History of cataract removal with insertion of prosthetic lens Social History Smoking Status: Never smoker Smoking Status: Never smoker alcohol intake frequency: holidays/special occasions only Substance Use Type: does not use Exam Narrative Exam Narrative: General: Healthy appearing, in no acute distress. Able to give a complete and coherent history. Well-nourished well-developed HEENT: Moist mucous membranes, normal sclera with reactive pupils, Neck: No JVD, supple Respiratory: Lungs are clear to auscultation, no wheezing no rales no rhonchi. Full and symmetrical air movement Cardiac: Regular rate and rhythm no murmurs no bruits Abdomen: Soft, nontender, good bowel tones, no flank pain Skin: Warm and dry, no rashes Neurologic: Grossly neurologically intact with no obvious asymmetries or abno rmalities Extremities: No trauma, well perfused Psych: Cooperative, appropriate insight and affect Initial Vital Signs Initial Vital Signs: Vital Signs Temperature 98.8 F 04/26/21 11:30 Pulse Rate 93 H 04/26/21 11:30 Respiratory Rate 14 04/26/21 11:30 Blood Pressure 208/84 H 04/26/21 11:30 Pulse Oximetry 100 04/26/21 11:30 Course Orders Ordered: ED Orders 04/26/21 11:33 XR chest 1V Stat EKG-12 Lead Stat 04/26/21 11:38 Complete Blood Count AUTO DIFF Stat Comprehensive Metabolic Panel Stat Magnesium Stat Partial Thromboplastin Time Stat Prothrombin Time INR Stat Thyroid Stimulating Hormone Stat Troponin & CK Cardiac Panel Stat Sodium Chloride (Normal Saline 0.9%) 1,000 mls @ 150 mls/hr IV CONT ANUP Last Admin: 04/26/21 13:26 Dose: 150 mls/hr Documented by: JEREMY Discontinued Medications Amlodipine Besylate (Amlodipine 5 Mg Tablet) 5 mg PO NOW ONE Stop: 04/26/21 12:48 Last Admin: 04/26/21 13:26 Dose: 5 mg Documented by: JEREMY Vital Signs Vital signs: Vital Signs - 8 hr 04/26/21 11:30 04/26/21 12:18 04/26/21 12:30 Temperature 98.8 F Pulse Rate 93 H 97 H 65 Respiratory Rate 14 22 Blood Pressure 208/84 H 154/63 H 146/65 H Pulse Oximetry 100 98 98 04/26/21 13:00 04/26/21 13:30 04/26/21 13:31 Temperature Pulse Rate 67 75 87 Respiratory Rate 23 19 Blood Pressure 172/69 H 161/71 H Pulse Oximetry 97 99 98 04/26/21 14:00 04/26/21 14:30 04/26/21 15:00 Temperature Pulse Rate 79 78 78 Respiratory Rate 17 24 25 H Blood Pressure 170/72 H 173/74 H 172/69 H Pulse Oximetry 99 99 99 04/26/21 15:30 04/26/21 15:31 04/26/21 15:47 Temperature Pulse Rate 89 98 H 98 H Respiratory Rate 17 22 21 Blood Pressure 205/83 H Pulse Oximetry 100 100 100 04/26/21 15:48 Temperature Pulse Rate Respiratory Rate Blood Pressure 188/78 H Pulse Oximetry MDM - Arrhythmia/Palpitations Lab Data Result diagrams: 04/26/21 11:38 04/26/21 11:38 Labs: Lab Results 04/26/21 04/26/21 04/26/21 Range/Units 11:38 11:38 11:38 WBC 4.3 L (4.5-11.0) X10^3/uL RBC 2.83 L (4.0-5.2) X10^6/uL Hgb 7.9 L (12.0-16.0) g/dL Hct 25.0 L (36-46) % MCV 88.3 (80-100) fL MCH 27.8 (26-34) PG MCHC 31.5 (30-36) % RDW 43.5 H (11.6-14.8) % Plt Count 95 L (150-400) X10^3/uL Neut % (Auto) Not Reportable Lymph % (Auto) Not Reportable [place] % (Auto) Not Reportable Eos % (Auto) Not Reportable Baso % (Auto) Not Reportable Lymph # (Auto) Not Reportable [place] # (Auto) Not Reportable Baso # (Auto) Not Reportable Total Counted 50 Seg Neutrophils % 18.0 L (38-70) % Band Neutrophils % 18.0 H (3-7) % Lymphocytes % (Manual) 24.0 L (25-45) % Atypical Lymphs % 6.0 H ( - 0) % Monocytes % (Manual) 32.0 H (2-11) % Eosinophils % (Manual) 2.0 (2-4) % Neutrophils # (Manual) 1548 L (6150-2522) /uL Nucleated RBCs 2 H ( - 0) #/Diff RBC Morphology Not Reportable Polychromasia 1+ H Hypochromasia 3+ H Poikilocytosis 2+ H Anisocytosis 3+ H Target Cells 2+ H PT 12.7 (10.1-12.7) SECONDS INR 1.1 (0.9-1.3) APTT 32 (26.4-36.2) SECONDS Sodium 139 (137-145) mmol/L Potassium 4.8 (3.4-5.1) mmol/L Chloride 108 H (98-107) mmol/L Carbon Dioxide 26 (22-32) mmol/L BUN 16 (7-17) mg/dL Creatinine 0.78 (0.52-1.04) mg/dL Estimated GFR > 60.0 (>60) mL/min BUN/Creatinine Ratio 20.5 (6-22) Glucose 101 (80-110) mg/dL Calcium 9.2 (8.4-10.2) mg/dL Magnesium 2.0 (1.6-2.3) mg/dL Total Bilirubin 0.6 (0.2-1.3) mg/dL AST 26 (14-36) IU/L ALT 27 (<35) IU/L Alkaline Phosphatase 78 (38-126) U/L Total Creatine Kinase < 20 L (30-135) U/L CK-MB (CK-2) TNP CK-MB (CK-2) Rel Index TNP Troponin I < 0.012 (0.01-0.034) ng/mL Total Protein 7.1 (6.3-8.2) g/dL Albumin 3.8 (3.5-5.0) g/dL Globulin 3.3 (1.7-4.1) g/dL Albumin/Globulin Ratio 1.2 (1.0-2.8) TSH (0.47-4.68) uIU/mL 04/26/ Range/Units 11:38 WBC (4.5-11.0) X10^3/uL RBC (4.0-5.2) X10^6/uL Hgb (12.0-16.0) g/dL Hct (36-46) % MCV (80-100) fL MCH (26-34) PG MCHC (30-36) % RDW (11.6-14.8) % Plt Count (150-400) X10^3/uL Neut % (Auto) Lymph % (Auto) [place] % (Auto) Eos % (Auto) Baso % (Auto) Lymph # (Auto) [place] # (Auto) Baso # (Auto) Total Counted Seg Neutrophils % (38-70) % Band Neutrophils % (3-7) % Lymphocytes % (Manual) (25-45) % Atypical Lymphs % ( - 0) % Monocytes % (Manual) (2-11) % Eosinophils % (Manual) (2-4) % Neutrophils # (Manual) (0118-8429) /uL Nucleated RBCs ( - 0) #/Diff RBC Morphology Polychromasia Hypochromasia Poikilocytosis Anisocytosis Target Cells PT (10.1-12.7) SECONDS INR (0.9-1.3) APTT (26.4-36.2) SECONDS Sodium (137-145) mmol/L Potassium (3.4-5.1) mmol/L Chloride (98-107) mmol/L Carbon Dioxide (22-32) mmol/L BUN (7-17) mg/dL Creatinine (0.52-1.04) mg/dL Estimated GFR (>60) mL/min BUN/Creatinine Ratio (6-22) Glucose (80-110) mg/dL Calcium (8.4-10.2) mg/dL Magnesium (1.6-2.3) mg/dL Total Bilirubin (0.2-1.3) mg/dL AST (14-36) IU/L ALT (<35) IU/L Alkaline Phosphatase (38-126) U/L Total Creatine Kinase (30-135) U/L CK-MB (CK-2) CK-MB (CK-2) Rel Index Troponin I (0.01-0.034) ng/mL Total Protein (6.3-8.2) g/dL Albumin (3.5-5.0) g/dL Globulin (1.7-4.1) g/dL Albumin/Globulin Ratio (1.0-2.8) TSH 1.66 (0.47-4.68) uIU/mL MDM Narrative Medical decision making narrative: 76-year-old woman with an acute gout flare recently started indomethacin and I believe that is caused an acute elevation in her well controlled chronic hypertension. She has significant sinus arrhythmia but is in a sinus rhythm here in the emergency department. Blood pressure is continued elevated. Headache has essentially resolved at this point. Labs are reassuring with no evidence of hypertensive crisis, acute stroke, acute coronary syndrome. She has the continued chronic pleural effusions secondary to her known stage IV cancer. Current medications had been benazepril 5 mg a day and metoprolol tartrate 25 mg in the evening. Will ask her to discontinue her indomethacin. Will toddler caregiver her a prescription for colchicine for future gout flares For the next 4-5 days will ask her to increase her benazepril to 20 mg daily, continue 25 mg of metoprolol tartrate each evening. If she is still feeling a pounding heart rate then she can take a 2nd dose of metoprolol. I have asked her to schedule follow-up appointment with her primary care physician in 1-2 weeks. Explained to her that the reason to return to the emergency department for elevated blood pressure is only if it is also associated with symptoms that suggest stroke or heart attack like complaints. She does understand this. She is given 20 mg of lisinopril(therapeutic substitution for benazepril in the hospital) prior to discharge home and prescription for the 10 mg size tablets are given as I suspect that she will end up being able to go back to 10 mg relatively quickly as she discontinues the indomethacin. She is safe for home discharge Discharge Plan Departure Patient Disposition: Home Clinical Impression: Hypertension, Gout Instructions: Gout, DI for High Blood Pressure Activity Restrictions/Additional Instructions: Thank you for coming in today. With your blood work and clinical exam there was no evidence of heart attack, heart failure, acute coronary syndrome, stroke or other life-threatening issues. Your blood pressure is certainly elevated however I suspect that it will come down after you have stopped taking your indomethacin. Indomethacin is an excellent treatment for gout but 1 of the side effects of nonsteroidals (like Indocin or ibuprofen or Naprosyn) is water retention and blood pressure issues. Please stop your indomethacin If you have additional gout problems you can use an acute course of colchicine. 0.6 mg tablets, 2 when you 1st notice the gout inflammation and 1 more 1 hour later. For your blood pressure: In the morning for the next couple of days I would like you to take 20 mg of benazepril. I have given you a prescription for the 10 mg tablets. Prescription for benazepril and colchicine have been electronically transmitted to [facility] for you In the evening please take your usual 25 mg of metoprolol. If you are still feeling a sensation of pounding or hearing your heart rate you can take another metoprolol an hour later. Please check your blood pressure once a day approximately 2-3 hours after the benazepril dose. Please keep track of these blood pressures to review with your primary care doctor when you see her in 1-2 weeks. Reasons to return to the emergency room are symptomatic problems such as chest pain, shortness of breath, severe headache, cloudy thinking, numbness or tingling in parts of your body AND elevated blood pressure. Do not need to be seen in the emergency department for elevated blood pressure that is asymptomatic. I wish you the best Prescriptions: New colchicine 0.6 mg tablet 0.6 mg PO DAILY Qty: 3 0RF Rx Instructions: 2 pills with onset gout symptoms. 1 additional pill one hour later benazepril 10 mg tablet 20 mg PO DAILY Qty: 60 0RF No Action benazepril 10 MG tablet 5 mg PO QDAY Qty: 0 0RF metoprolol tartrate 25 MG tablet 25 mg PO DAILY 0RF calcium 600 mg Capsule 600 mg PO DAILY 0RF B Complex Tablet Extended Release 1 tab PO DAILY 0RF Chondroitin Sulfate 400 mg Capsule 1,200 mg PO DAILY 0RF cranberry 500 mg Capsule 650 mg PO DAILY 0RF glucosamine sulfate [Glucosamine] 750 mg Tablet 1,500 mg DAILY 0RF alendronate 70 mg Tablet 70 mg PO QWEEK 0RF Referrals: Kalani Ogden MD [Primary Care Provider] -
[2021-04-26] MEDS: lisinopriL 20 MG TABLET PO (16:47)
== END 2021-04-26 16:56 | disposition home or self-care (01) ==
PROVIDERS: Emergency Provider Emergency Medicine; Family Provider Obstetrics & Gynecology; PCP Family Medicine
DX: I10 Essential (primary) hypertension (principal); M10.071 Idiopathic gout, right ankle and foot; I49.8 Other specified cardiac arrhythmias
CPT/HCPCS: 36415; 71045; 80053; 82550; 83735; 84443; 84484; 85007; 85025; 85610; 85730; 93005; 96360; 96361; 99284

== ENCOUNTER → 2021-05-25 07:51 | Outpatient (CLI) | payer MEDICARE, OTHER, SELFPAY ==
--- NOTE | 2021-05-25 | DI.ECHO.S_ITS ---
[facility]---------+ [facility] +---------+ : : [address] : : : : [id number] : : : : Phone: [phone] Echocardiogram Report + + :Name: JUAN HERANNDEZ Study Date: 05/25/2021 Height: 60.5 in: :[facility] ReadingLocation: Weight: 126 lb : : Gender: Female BSA: 1.5 m2 : :: 1945 Age: 76 yrs BP: 149/79 mmHg: :Reason For Study: Atrial flutter : :Ordering Physician: : :TIAGO Performed By: Jose Carlos Hooper : :Referring: DELLA CHERY : + + Interpretation Summary The ejection fraction is estimated to be 60-65%. There are no obvious focal wall motion abnormalities noted but poor endocardial definition reduces the sensitivity for the detection of such. The ascending aorta is at the upper limits of normal in size. There is no pericardial effusion. There is no significant valvular heart disease. Procedure: A two-dimensional transthoracic echocardiogram with color flow and Doppler was performed. The study quality was technically adequate. Comparison is made with the echocardiogram of 05/30/2017. The patient was in normal sinus rhythm during the exam. Left Ventricle: The left ventricle is normal in size and wall thickness. The ejection fraction is estimated to be 60-65%. There are no obvious focal wall motion abnormalities noted but poor endocardial definition reduces the sensitivity for the detection of such. Right Ventricle: The right ventricle is normal in size and function. Atria: The left atrial size is normal. The right atrium is borderline dilated. There is no Doppler evidence for an interatrial shunt. Mitral Valve: There is mild mitral annular calcification. There is trace mitral regurgitation. Aortic Valve: The aortic valve opens well. The aortic valve is trileaflet. The aortic valve is slightly calcified. No aortic regurgitation is present. Tricuspid Valve: The tricuspid valve is normal. There is trace tricuspid regurgitation. The right ventricular systolic pressure is estimated to be at least 22 mmHg based on an estimated right atrial pressure of 3 mm Hg. Pulmonic Valve: The pulmonic valve is not well seen, but is grossly normal. Great Vessels: The aortic root is normal size. The ascending aorta is at the upper limits of normal in size. The aortic arch is normal in size. The IVC is of normal diameter and collapses greater than 50% with a sniff. This suggests a low right atrial pressure of 3 mm Hg. Pericardium/ Pleura There is no pericardial effusion. There is an anterior echo-free space consistent with a fat pad. There is no pleural effusion. MMode/2D Measurements & Calculations LVIDd: 3.7 cm LVOT diam: 2.1 cm LVIDs: 1.9 cm Ao root diam: 2.8 cm FS: 48.6 % asc Aorta Diam: 3.5 cm IVSd: 0.80 cm Ao Arch Diam (Prox Trans): 2.1 cm LVPWd: 1.0 cm LV forte. diameter/BSA (cm/m^2): 2.4 LV sys. diameter/BSA (cm/m^2): 1.2 LA A2 area: 16.5 cm2 RA long axis: 5.3 cm LA A4 area: 16.2 cm2 LA length (vol): 5.9 cm LA vol: 38.7 ml LA vol index: 25.1 ml/m2 LVLs ap4: 5.5 cm LVLd ap2: 7.0 cm LVLs ap2: 5.8 cm TAPSE_phl: 2.6 cm Doppler Measurements & Calculations Ao V2 max: 149.0 cm/sec LVOT Max Link: 124.0 cm/sec Ao V2 mean: 110.0 cm/sec LV V1 max P.2 mmHg Ao max P.0 mmHg LV V1 VTI: 27.4 cm Ao mean P.0 mmHg PARKER(I,D): 2.5 cm2 Ao V2 VTI: 37.6 cm PARKER(V,D): 2.9 cm2 sev ratio: 0.73 PARKER indexed to BSA (cm^2/m^2): 1.6 MV E max link: 90.0 cm/sec TR max link: 219.6 cm/sec MV A max link: 67.3 cm/sec TR max P.3 mmHg MV E/A: 1.3 Med Peak E' Link: 6.7 cm/sec E/E' med: 13.5 Lat Peak E' Link: 9.3 cm/sec E/E' lat: 9.7 E/e' average: 11.6 MV dec time: 0.21 sec SV(LVOT): 94.9 ml AV VR_phl: 0.83 PARKER(VTI)/BSA_phl: 1.6 MV P1/2t-pr_phl: 60.0 msec Reading Physician:10:04 AM
== END ==
PROVIDERS: Family Provider Obstetrics & Gynecology; PCP Family Medicine; Referring Provider Family Medicine; Visit Provider Family Medicine
DX: I49.1 Atrial premature depolarization (principal); I48.92 Unspecified atrial flutter
CPT/HCPCS: 93306

== ENCOUNTER 2021-06-12 09:32 | Observation (INO) | payer MEDICARE, OTHER, SELFPAY ==
[2021-06-12] VITALS (19 sets, daily range): BP systolic 130–161; BP diastolic 59–90; PULSE 73–116; RESP 11–27; TEMP 36.6–37.4; O2SAT 97–99; BMI 23.8; BMI 23.5
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
[2021-06-12 09:55] LABS: Add Manual Diff / Slide Review YES; Hematocrit 26.5 % (36-46); Hemoglobin 8.9 g/dL (12.0-16.0); Mean Corpuscular HGB Conc 33.6 % (30-36); Mean Corpuscular Hemoglobin 29.8 PG (26-34); Mean Corpuscular Volume 88.6 fL (80-100); Platelet Count 94 X10^3/uL (150-400); Red Blood Cell Count 2.99 X10^6/uL (4.0-5.2); White Blood Cell Count 3.7 X10^3/uL (4.5-11.0)
[2021-06-12 10:04] LABS: Alanine Aminotransferase 16 IU/L (<35); Albumin Globulin Ratio 1.2 (1.0-2.8); Alkaline Phosphatase 66 U/L (38-126); Aspartate Aminotransferase 25 IU/L (14-36); BUN Creatinine Ratio 24.4 (6-22); Bilirubin Total 0.7 mg/dL (0.2-1.3); Blood Urea Nitrogen 22 mg/dL (7-17); Calcium 9.3 mg/dL (8.4-10.2); Carbon Dioxide 27 mmol/L (22-32); Chloride 106 mmol/L (98-107); Creatine Kinase < 20 U/L (30-135); Estimated Glomerular Filt Rate > 60.0 mL/min (>60); Globulin 3.4 g/dL (1.7-4.1); Glucose 166 mg/dL (80-110); HEMOLYSIS < 15 (0-50); Potassium 3.8 mmol/L (3.4-5.1); Sodium 139 mmol/L (137-145); Total Protein 7.4 g/dL (6.3-8.2)
[2021-06-12 10:11] LABS: Neutrophils Absolute Manual 1221 /uL (3000-5900); Total Cells Counted 100
[2021-06-12 10:13] LABS: Anisocytosis 2+; Poikilocytosis 3+
[2021-06-12 10:16] LABS: Troponin I < 0.012 ng/mL (0.01-0.034)
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
[2021-06-12 10:34] LABS: COVID19 -Nasal RAPID Negative (Negative)
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
[2021-06-12] MEDS: METOPROLOL ER 25 MG TABLET PO (18:47)
[2021-06-12] MEDS: ATORVASTATIN 20 MG TABLET 10 MG PO (20:34)
[2021-06-13] VITALS (8 sets, daily range): BP systolic 126–147; BP diastolic 60–88; PULSE 65–98; RESP 16–18; TEMP 36.4–37; O2SAT 95–99
[2021-06-13 06:43] LABS: Alanine Aminotransferase 12 IU/L (<35); Albumin 3.3 g/dL (3.5-5.0); Albumin Globulin Ratio 1.2 (1.0-2.8); Alkaline Phosphatase 51 U/L (38-126); Aspartate Aminotransferase 21 IU/L (14-36); BUN Creatinine Ratio 25.3 (6-22); Bilirubin Total 0.5 mg/dL (0.2-1.3); Blood Urea Nitrogen 19 mg/dL (7-17); Calcium 8.8 mg/dL (8.4-10.2); Carbon Dioxide 30 mmol/L (22-32); Chloride 107 mmol/L (98-107); Estimated Glomerular Filt Rate > 60.0 mL/min (>60); Globulin 2.7 g/dL (1.7-4.1); Glucose 99 mg/dL (80-110); HEMOLYSIS < 15 (0-50); Potassium 4.2 mmol/L (3.4-5.1); Sodium 138 mmol/L (137-145)
[2021-06-13 07:04] LABS: Add Manual Diff / Slide Review YES; Hematocrit 23.6 % (36-46); Hemoglobin 7.7 g/dL (12.0-16.0); Mean Corpuscular HGB Conc 32.5 % (30-36); Mean Corpuscular Hemoglobin 28.4 PG (26-34); Mean Corpuscular Volume 87.4 fL (80-100); Platelet Count 79 X10^3/uL (150-400); Red Cell Distribution Width 42.5 % (11.6-14.8); White Blood Cell Count 2.8 X10^3/uL (4.5-11.0)
[2021-06-13 07:15] LABS: Neutrophils Absolute Manual 476 /uL (3000-5900); Total Cells Counted 100
[2021-06-13 07:16] LABS: Anisocytosis 2+; Poikilocytosis 3+
--- NOTE | 2021-06-13 07:50 | DI.MRI.S_ITS ---
PROCEDURE: MR STROKE Pre- and post-contrast brain MRI, non-contrast brain MR angiogram, pre- and postcontrast neck MR angiogram INDICATIONS: R/O stroke TECHNIQUE: Brain: Noncontrast axial T1 spin echo, axial T2 fast spin echo, sagittal and axial FLAIR, coronal T2 fast spin echo, axial gradient echo, axial diffusion and ADC through the brain. After the administration of contrast, axial 3D VIBE of the cranial vasculature and brain. Brain MRA: Non-contrast 3-D time of flight MR angiogram, with multiple rwiunsf-jwdoevnac-liqdspvzjy (MIP) reformats performed. Neck MRA: Axial and sagittal TruFISP through the neck. Coronal dynamic MR angiogram during administration of contrast in the arterial and venous phases, with 3-dimenstional gjuntzi-bbzajbggd-pqnfpmxgvc (MIP) reformats constructed from subtraction images. COMPARISON: [facility], CT, CT ANGIO CHEST PE PROTOCOL, 06/12/2021, 9:50. [facility], MR, C-SPINE WITHOUT CONTRAST, 01/26/2008, 16:54. [facility], NM, NM PET CT FUSION SKULL 2 THIGH, 02/15/2021, 10:22. [facility], CT, CT HEAD/BRAIN WO CON, 06/12/2021, 9:50. FINDINGS: Image quality: Excellent. BRAIN: CSF spaces: Ventricles are normal in size and shape. Basal cisterns are patent. No extra-axial fluid collections. Brain: There is an enhancing mass in the left posterior fossa measuring approximately 2.8 x 2.8 x 2.5 cm AP LR CC. This appears to be extra-axial and dural-based, with a CSF cleft between the margin of the mass in the adjacent cerebellar hemisphere. There is increased T2 signal within the adjacent left cerebellar hemispheric parenchyma suggestive of edema. This could be due to mass effect although a component of invasion cannot be strictly excluded. There is moderate to severe chronic microvascular ischemic change with moderate global cerebral volume loss. No other abnormal intracranial enhancement or susceptibility. No restricted diffusion to indicate recent ischemia. The major intracranial vascular flow-related signal voids are maintained. Skull and face: Calvarial marrow signal is normal. Orbits appear normal. Sinuses: Sinuses and mastoids are clear. BRAIN MR ANGIOGRAM: Anterior circulation: Intracranial internal carotid arteries are normal in size and enhancement. The flow within the paired anterior cerebral arteries is normal and symmetric. The flow within the middle cerebral arteries is normal and symmetric. The anterior communicating artery is seen. No stenoses, occlusions, or aneurysms. Posterior circulation: The visualized portions of the vertebral arteries demonstrate normal caliber, and join to form a normal appearing basilar artery. The flow within the posterior cerebral arteries is normal and symmetric. No stenoses, occlusions, or aneurysms. NECK MR ANGIOGRAM: Carotids: Great vessels demonstrate a conventional anatomy as they arise from the aortic arch. The origins of the common carotid arteries appear patent. The calibers and courses of both common carotid arteries are normal. The bifurcation regions appear normal bilaterally. The internal carotid arteries demonstrate normal course and caliber. Posterior circulation: The origins of the vertebral arteries appear patent. More superior portions of both vertebral arteries demonstrate normal course and caliber, and join to form a normal appearing basilar artery. Miscellaneous: Subclavian arteries appear patent. Pre-contrast images through the neck show no soft tissue abnormalities. IMPRESSION: BRAIN MRI: Enhancing left posterior fossa mass which appears to be extra-axial and dural-based, most likely representing a meningioma with associated wese-bp-[id number] mass effect on the adjacent left cerebellar hemisphere producing mild left cerebellar hemispheric vasogenic edema. Dural metastatic disease cannot be excluded entirely. BRAIN MR ANGIOGRAM: No flow-limiting stenosis or occlusion of the major intracranial circulation. NECK MR ANGIOGRAM: No flow-limiting stenosis or occlusion of the major extracranial arterial circulation. Dictated by: Shailesh Mendoza M.D. on 06/13/2021 at 11:11 Approved by: Shailesh Mendoza M.D. on 06/13/2021 at 11:24
[2021-06-13] MEDS: lisinopriL 10 MG TABLET PO (10:02)
[2021-06-13] MEDS: CALCIUM CARBONATE 600 MG TABLET PO (10:02)
--- NOTE | 2021-06-13 13:29 | PM.PN.1 ---
Subjective Subjective Date Patient Seen: 06/13/21 Time Patient Seen: 13:29 Interval history: No events overnight. Patient had difficulty sleeping. Patient has had no dizziness, no presyncope or syncope. Her blood pressure has been great today. She is tolerating p.o. without difficulty no BM. Exam Vital Signs (past 8 hours): - 06/13/21 08:29 06/13/21 10:02 06/13/21 11:00 Temperature 98.3 F Pulse Rate 65 72 98 H Respiratory Rate 18 18 Blood Pressure 137/65 132/64 126/82 Pulse Oximetry 99 98 Oxygen Delivery Method Room Air Oxygen Flow Rate 0 Narrative Exam Narrative: Afebrile, vital signs are stable HEENT unremarkable Neck: Supple. No masses. No adenopathy. No supraclavicular lymphadenopathy Chest: Clear to auscultation without wheezes rhonchi or crackles Cor: Regular rate and rhythm without ectopy Abdomen: Positive bowel sounds, soft, nontender, nondistended Extremities no edema, pulses intact Neurologic exam nonfocal Objective Labs Result Diagrams: 06/13/21 05:43 06/13/21 05:43 Labs: Laboratory Results - last 24 hr 06/13/21 06/13/21 05:43 05:43 WBC 2.8 L RBC 2.70 L Hgb 7.7 L Hct 23.6 L MCV 87.4 MCH 28.4 MCHC 32.5 RDW 42.5 H Plt Count 79 L Neut % (Auto) Not Reportable Lymph % (Auto) Not Reportable [place] % (Auto) Not Reportable Eos % (Auto) Not Reportable Baso % (Auto) Not Reportable Lymph # (Auto) Not Reportable [place] # (Auto) Not Reportable Baso # (Auto) Not Reportable Total Counted 100 Seg Neutrophils % 16.0 L Band Neutrophils % 1.0 L Lymphocytes % (Manual) 32.0 Atypical Lymphs % 13.0 H Monocytes % (Manual) 38.0 H Neutrophils # (Manual) 476 L RBC Morphology Not Reportable Poikilocytosis 3+ H Anisocytosis 2+ H Sodium 138 Potassium 4.2 Chloride 107 Carbon Dioxide 30 BUN 19 H Creatinine 0.75 Estimated GFR > 60.0 BUN/Creatinine Ratio 25.3 H Glucose 99 Calcium 8.8 Total Bilirubin 0.5 AST 21 ALT 12 Alkaline Phosphatase 51 Total Protein 6.0 L Albumin 3.3 L Globulin 2.7 Albumin/Globulin Ratio 1.2 [facility] Medical History Atypical chest pain Cardiac arrhythmia, unspecified Malignant pleural effusion Pleural effusion Surgical History History of cataract removal with insertion of prosthetic lens Social History household members: children Smoking Status: Never smoker alcohol intake: current Assessment & Plan Assessment & Plan narrative: Assessment & Plan narrative: 76-year-old female with syncopal episode of unclear etiology suspect likely related to blood pressure instability which is certainly contributed to by her chemotherapy agent. Hospital day 2. Plan: Patient was stable overnight. She had no a arrhythmias on telemetry. She has had no further episodes of presyncope or syncope. She has no evidence of CVA on MRI MRA but does have a new finding of a probable meningioma. Assessment 2. Hypertension Plan:? Will continue with outpatient medications benazepril 10 mg daily and metoprolol 25 mg at bedtime.? Will monitor blood pressure on these medicines. Reviewed echo. Patient's blood pressure is much improved. Assessment 3. Anemia with slight worsening with no acute blood loss but suspect due to malignancy and chemotherapy treatment. Assessment 4. Osteoporosis Plan: Patient had her last dose of Fosamax yesterday so she will not need it until the . Assessment 5.? Hyperlipidemia Plan: Continue atorvastatin Assessment 6. Gout no current issues. Assessment 7. Stage IV high-grade serous mullerian adenocarcinoma Plan:? Discussed the results of the MRI MRA with Dr. Lorenzo. No evidence of metastases but new finding of a meningioma. Left a call with Dr. Dunham who is not working today and will discuss with him tomorrow Assessment 8. New finding of a mass in the posterior fossa with mild edema, mass effect associated with this. It is 3 cm it is well defined it is not invading it is not cystic it is solitary dense and in the dura most likely a meningioma. I have left a call with Dr. Daniel at [address] [place] [address] [place] him to discuss how they would like to proceed as likely she will need this removed. Code status is DNR Time Spent With Patient Critical Care time: I spent a total of [] minutes of critical care time on this patient's care today; this time is exclusive of procedural time. Quality VTE Deep Vein Thrombosis/Pulmonary Embolism Present on Admission: No
--- NOTE | 2021-06-13 15:45 | CM.DANOTE ---
Patient is a 76 yo female who was admitted on 06/12/21 for Syncopal Episode. Pt has [employer] and [employer] for insurance and her PCP is Dr. Kalani Ogden. EMR was reviewed. Per MD, pt has hx of carcinoma of the ovary and getting chemo at baseline from Dr. Huggins at [facility]. Pt now with new mass and anticipated meningioma and MD consulting with Neurologist to determine next POC steps. Pt was last admitted in 2018 and was able to d/c home. SW attempted to meet bedside with pt but she was off the floor for scans which found the new mass. Plan: SW to follow for Neurologist consult towards determining d/c planning needs and identified barriers and to meet bedside with pt and family tomorrow once POC more determined. DORI Zuluaga Discharge Planning/Care Management CM Discharge Assessment Start: 06/13/21 15:43 Freq: Status: Active Protocol: Document 06/13/21 15:43 BF (Rec: 06/13/21 15:45 BF [id number]) Discharge Planning Assessment Assigned Color Technician DORI Zamora Advance Directives? Yes: Living Will, Durable Power of Lump Room Supervisor Advance Directives on File No History Provided By Patient,Medical Record Has Patient been admitted in last 30 No days? Prior Living Arrangements House Household Members children Type of transporation used prior to Relies on Others admit Independent with ADL's Yes Is patient alert and oriented? Yes Needs Assistance With Managing Medications,Home Chores / Shopping Caregiver for Another No Comment Awaiting POC to determine needs, new mass found Barriers to Discharge No Discharge Plan Home Transportation Arrangement Pending d/c needs, likely family to transport if safe for home Additional Comment Awaiting Neurology consult to determine d/c needs Review Status In Process Please Provide Date Initial DC 06/13/21 Assessment Was Performed Next Review Type Continued Stay Review
[2021-06-13] MEDS: METOPROLOL ER 25 MG TABLET PO (18:08)
[2021-06-13] MEDS: ATORVASTATIN 20 MG TABLET 10 MG PO (20:07)
[2021-06-14] VITALS: BP 135/69; PULSE 62; RESP 18; TEMP 36.7; O2SAT 96
[2021-06-14 03:40] VITALS: BP 119/69; PULSE 79; RESP 18; TEMP 36.9; O2SAT 99
[2021-06-14 08:37] VITALS: BP 137/74; PULSE 87; RESP 20; TEMP 37.2; O2SAT 98
[2021-06-14] MEDS: CALCIUM CARBONATE 600 MG TABLET PO (08:37)
[2021-06-14 08:38] VITALS: BP 137/74; PULSE 87
[2021-06-14] MEDS: lisinopriL 10 MG TABLET PO (08:38)
[2021-06-14 09:18] LABS: Hematocrit 24.3 % (36-46); Hemoglobin 8.3 g/dL (12.0-16.0); Mean Corpuscular HGB Conc 34.2 % (30-36); Mean Corpuscular Hemoglobin 30.1 PG (26-34); Mean Corpuscular Volume 87.8 fL (80-100); Platelet Count 85 X10^3/uL (150-400); Red Blood Cell Count 2.76 X10^6/uL (4.0-5.2); Red Cell Distribution Width 42.4 % (11.6-14.8); White Blood Cell Count 2.8 X10^3/uL (4.5-11.0)
[2021-06-14 09:22] LABS: Add Manual Diff / Slide Review YES
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
[2021-06-14 10:00] LABS: Neutrophils Absolute Manual 952 /uL (3000-5900); Total Cells Counted 100
[2021-06-14 10:02] LABS: Anisocytosis 3+
[2021-06-14 10:03] LABS: Hypochromasia 2+
[2021-06-14 10:04] LABS: Schistocytes 3+
[2021-06-14 10:05] LABS: Poikilocytosis 3+; Target Cells 1+
--- NOTE | 2021-06-14 11:00 | PC.NURSE ---
Pt discharged at 1045, escorted off floor in wheelchair, accompanied by hospital staff. IV removed, tele d/c'd, discharge teaching reviewed. Follow up appointment made with Dr. Ogden for 06/23 at 11:15 am. Transportation to/from consults and follow up appointments discussed. Pt left the floor with all belongings in possession.
--- NOTE | 2021-06-14 15:30 | CM.DPC ---
DCP Discharge Home Per MD, pt is medically stable to d/c home today with son assist and outpt f/u and no identified barriers to discharge. MD scheduled f/u appointment for pt in PCP office next week along with Oncologist appointment tomorrow with Dr. Huggins and Neurology. SW spoke to MD and no identified barriers to discharge or needs at this time for DCP. Due to triage needs SW did not get a chance to meet with pt bedside. Per RN, d/c instruction given and pt taken to son's POV for d/c home today. Sera Collins MSW
== END 2021-06-14 11:00 | disposition home or self-care (01) | DRG 312 ==
LOC: ED 12:16 → AC 12:37
PROVIDERS: Admitting Provider Family Medicine; Emergency Provider Emergency Medicine; Family Provider Obstetrics & Gynecology; PCP Family Medicine; Visit Provider Family Medicine
DX: R55 Syncope and collapse (principal); C56.9 Malignant neoplasm of unspecified ovary; D63.0 Anemia in neoplastic disease; D64.81 Anemia due to antineoplastic chemotherapy; I10 Essential (primary) hypertension; E78.5 Hyperlipidemia, unspecified; M10.9 Gout, unspecified; M81.0 Age-related osteoporosis without current pathological fracture; Z20.822 Contact with and (suspected) exposure to COVID-19; Z66 Do not resuscitate
CPT/HCPCS: 36415; 70450; 70548; 70553; 71275; 72125; 74177; 80053; 82550; 84484; 85007; 85025; 87635; 93005; 93010; 99284; C9803; G0378; A9579

== ENCOUNTER → 2021-06-15 08:06 | Outpatient (CLI) | payer MEDICARE, OTHER, SELFPAY ==
[2021-06-12 12:38] VITALS: BMI 23.5
--- NOTE | 2021-06-30 16:05 | PM.CARDMON.1 ---
Model And Pattern Supervisor Report Referral & Results Date Patient Seen: 06/15/21 Requesting provider: Kalani Ogden Indication: Atrial premature depolarizations Duration of monitoring (days): 7 Diary information: There was 1 patient triggered event that was associated with sinus rhythm and PACs Data: Minimum heart rate identified was 52 beats per minute at 07:00 on 06/19/2021 Maximum sinus heart rate was 169 beats per minute at 15:02 on 06/16/2021 Approximate 2% of identified beats were supraventricular ectopic in origin which would classify them as occasional Less than 1% of identified beats were ventricular ectopic in origin which would classify them as rare No pauses or atrial fibrillation identified on this study 12 runs of SVT were identified fastest being 5 beats at a rate of 154 beats per minute the longest lasting 8 beats 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
== END ==
PROVIDERS: Family Provider Obstetrics & Gynecology; PCP Family Medicine; Referring Provider Family Medicine; Visit Provider Family Medicine
DX: I49.1 Atrial premature depolarization (principal); I48.92 Unspecified atrial flutter
CPT/HCPCS: 93242; 93244

== ENCOUNTER 2021-06-21 09:21 | Emergency (ER) | payer MEDICARE, OTHER, SELFPAY ==
[2021-06-12 12:38] VITALS: BMI 23.5
[2021-06-21] VITALS (19 sets, daily range): BP systolic 127–178; BP diastolic 63–91; PULSE 72–112; RESP 16–32; TEMP 36.6–36.8; O2SAT 97–100; BMI 24.0
--- NOTE | 2021-06-21 09:27 | DI.RAD.S_ITS ---
PROCEDURE: XR CHEST 1V INDICATIONS: Chest pain TECHNIQUE: One view of the chest was acquired. COMPARISON: [facility], CT, CT ANGIO CHEST PE PROTOCOL, 06/12/2021, 9:50. [facility], CR, XR CHEST 1V, 08/11/2020, 10:47. [facility], CT, CT CHEST ABD PEL W CON, 11/14/2020, 10:30. [facility], CR, XR CHEST 1V, 04/26/2021, 11:53. FINDINGS: Surgical changes and devices: There is an electronic device overlying the left thorax. There is a stable right-sided chest port. Lungs and pleura: There is a small right-sided pleural effusion with overlying presumed atelectasis. The left lung appears clear. There is no pneumothorax. Mediastinum: The cardiac contours are within normal limits. Fullness of the mediastinum can be seen, which is consistent with known enlarged mediastinal lymph nodes. The aorta demonstrates calcification and tortuosity. Bones and chest wall: Age-appropriate bony degenerative changes are seen. No suspicious bony lesions. Apparent remote fracture of the right humeral neck. Please correlate with known history. Overlying soft tissues appear unremarkable. IMPRESSION: Small right-sided pleural effusion with overlying atelectasis. Postoperative and degenerative changes are seen. Mediastinal fullness is seen, which is consistent with the known enlarged mediastinal lymph nodes. Dictated by: Isaías Christian M.D. on 06/21/2021 at 8:51 Approved by: Isaías Christian M.D. on 06/21/2021 at 8:54
--- NOTE | 2021-06-21 09:38 | ED_ITS ---
HPI - General Adult General Chief complaint: Chest Pain Stated complaint: Chest pain/ left arm pain Time Seen by Provider: 06/21/21 09:26 Source: patient Mode of arrival: Ambulatory History of Present Illness HPI narrative: Patient is a 76-year-old female who arrives by private vehicle for evaluation of left-sided chest pain left arm pain. She states that she felt the symptoms last evening but the seem to get worse this morning. She went to bed with the symptoms last night. She slept well. She woke up the symptoms this morning. I s difficult for her to exactly describe what she does states that it aches. Does not get worse with movement or palpation. No fevers. No problems breathing. No palpitations. She was recently seen here in the emergency department and admitted after having a syncopal episode. There was concern that she potentially has atrial fibrillation. She does have a history of high blood pressure. She has been taking all of her medications as directed. She has never had a heart attack in the past. Her patient's have been consistent since the onset yesterday. Related Data Home Medications Medication Instructions Recorded Confirmed benazepril 10 mg tablet 10 mg PO QDAY #0 06/26/16 06/15/21 metoprolol tartrate 25 mg tablet 25 mg PO DAILY 02/25/20 06/15/21 calcium 600 mg capsule 600 mg PO DAILY 04/07/20 06/15/21 cranberry 500 mg capsule 650 mg PO DAILY 04/07/20 06/15/21 glucosamine sulfate 750 mg tablet 1,500 mg BID 04/07/20 06/15/21 vitamin B complex 1 tab PO DAILY 04/07/20 06/15/21 alendronate 70 mg tablet 70 mg PO QWEEK 05/05/20 06/15/21 atorvastatin 10 mg tablet 10 mg PO DAILY 06/12/21 06/15/21 bevacizumab 25 mg/mL intravenous 900 mg IV Q3W 06/12/21 06/15/21 solution (Avastin) colchicine 0.6 mg tablet (Colcrys) 0.6 mg PO DIRECTED 06/12/21 06/15/21 Allergies Allergy/AdvReac Type Severity Reaction Status Date / Time No Known Allergies Allergy Unknown Verified 06/12/21 09:47 [NO KNOWN ALLERGIES] Review of Systems Constitutional Constitutional: Denies fever(s) and Denies headache(s) ENT Ears, Nose, Mouth, and Throat: Denies headache(s) Cardiovascular Cardiovascular: Reports as per HPI and Reports system reviewed and no additional complaints, except as documented Respiratory Respiratory: Reports as per HPI and Reports system reviewed and no additional complaints, except as documented Gastrointestinal Gastrointestinal: Denies abdominal pain, Denies nausea and Denies vomiting Genitourinary Genitourinary: Reports system reviewed and no additional complaints, except as documented Musculoskeletal Comments: Left arm pain Integumentary/Breasts Skin/Breast: Reports system reviewed and no additional complaints, except as documented Neurologic Neurologic: Denies headache(s) Hematologic/Lymphatic On Anticoagulants: No Patient History Medical History Atypical chest pain Cardiac arrhythmia, unspecified Malignant pleural effusion Pleural effusion Surgical History History of cataract removal with insertion of prosthetic lens Social History household members: children Smoking Status: Never smoker alcohol intake: current Smoking Status: Never smoker alcohol intake frequency: holidays/special occasions only Substance Use Type: does not use Exam Initial Vital Signs Initial Vital Signs: Vital Signs Temperature 97.9 F 06/21/21 09:23 Pulse Rate 109 H 06/21/21 09:23 Respiratory Rate 18 06/21/21 09:23 Blood Pressure 178/79 H 06/21/21 09:23 Pulse Oximetry 100 06/21/21 09:23 Const General: cooperative, healthy appearing and comfortable HENMT Head: normal to inspection and normocephalic Chest Chest: normal inspection of the chest, No crepitus and No tenderness Resp Effort & Inspection: normal respiratory effort Auscultation: clear to auscultation bilaterally Cardio Rate: regular rate Rhythm: regular rhythm GI Palpation: soft, No firm and No tender Skin General: no rashes or lesions noted Neuro General: patient alert, patient awake, patient oriented x3 and moves all extremities Speech: speech normal Extrem Other: Left upper extremity unremarkable. Does have pitting edema bilateral lower extremities Psych Appearance: grossly normal and well kempt Course Orders Ordered: ED Orders 06/21/21 09:27 XR chest 1V Stat 06/21/21 09:28 EKG-12 Lead Stat 06/21/21 09:31 Complete Blood Count AUTO DIFF Stat Comprehensive Metabolic Panel Stat Lipase Stat Troponin & CK Cardiac Panel Stat 06/21/21 09:35 Partial Thromboplastin Time Stat Prothrombin Time INR Stat 06/21/21 11:42 COVID19 -Nasal swab/Pre-Proc Stat 06/21/21 19:30 PTT [Partial Thromboplastin Time] Q6H 06/22/21 01:30 PTT [Partial Thromboplastin Time] Q6H 06/22/21 07:30 PTT [Partial Thromboplastin Time] Q6H 06/22/21 13:30 PTT [Partial Thromboplastin Time] Q6H Heparin Sodium/Dextrose (Heparin Drip) 25,000 unit in 500 mls @ 13.39 mls/hr IV CONT ANUP; Protocol Last Admin: 06/21/21 14:11 Dose: 12 units/kg/hr, 13.39 mls/hr Documented by: JUAN Discontinued Medications Aspirin (Aspirin 81 Mg Chew Tab) 324 mg PO NOW ONE Stop: 06/21/21 11:32 Last Admin: 06/21/21 11:48 Dose: 324 mg Documented by: TAMERA Heparin Sodium (Porcine) (Heparin 5,000 Unit/Ml Vial) 4,000 unit IV NOW ONE Stop: 06/21/21 13:20 Last Admin: 06/21/21 14:11 Dose: 4,000 unit Documented by: JUAN Vital Signs Vital signs: Vital Signs - 8 hr 06/21/21 09:23 06/21/21 09:27 06/21/21 09:28 Temperature 97.9 F Pulse Rate 109 H 112 H Respiratory Rate 18 Blood Pressure 178/79 H 178/79 H Pulse Oximetry 100 99 100 06/21/21 09:30 06/21/21 09:37 06/21/21 10:00 Temperature Pulse Rate 111 H 105 H 92 H Respiratory Rate 23 Blood Pressure 164/77 H 140/65 Pulse Oximetry 100 100 98 06/21/21 10:30 06/21/21 11:00 06/21/21 11:30 Temperature Pulse Rate 74 93 H 111 H Respiratory Rate 16 24 32 H Blood Pressure 128/64 127/65 146/81 H Pulse Oximetry 98 97 99 06/21/21 12:00 06/21/21 12:30 06/21/21 13:00 Temperature Pulse Rate 75 86 94 H Respiratory Rate 17 18 17 Blood Pressure 138/80 139/72 135/73 Pulse Oximetry 98 98 98 06/21/21 13:30 06/21/21 14:00 06/21/21 14:30 Temperature Pulse Rate 72 73 93 H Respiratory Rate Blood Pressure 137/65 136/63 172/91 H Pulse Oximetry 98 99 99 06/21/21 15:00 06/21/21 15:30 06/21/21 16:00 Temperature Pulse Rate 104 H 97 H 86 Respiratory Rate 20 25 H Blood Pressure 160/75 H 157/75 H 156/84 H Pulse Oximetry 99 98 98 Medical Decision Making Lab Data Lab results reviewed: Yes I reviewed the patient's lab results. Result diagrams: 06/21/21 09:31 06/21/21 09:31 Labs: Lab Results 06/21/21 06/21/21 06/21/21 Range/Units 09:31 09:31 09:35 WBC 3.4 L (4.5-11.0) X10^3/uL RBC 2.98 L (4.0-5.2) X10^6/uL Hgb 8.7 L (12.0-16.0) g/dL Hct 26.6 L (36-46) % MCV 89.0 (80-100) fL MCH 29.2 (26-34) PG MCHC 32.8 (30-36) % RDW 42.1 H (11.6-14.8) % Plt Count 106 L (150-400) X10^3/uL Neut % (Auto) Not Reportable Lymph % (Auto) Not Reportable Sanborn % (Auto) Not Reportable Eos % (Auto) Not Reportable Baso % (Auto) Not Reportable Lymph # (Auto) Not Reportable Sanborn # (Auto) Not Reportable Baso # (Auto) Not Reportable Total Counted 50 Seg Neutrophils % 28.0 L (38-70) % Band Neutrophils % 12.0 H (3-7) % Lymphocytes % (Manual) 22.0 L (25-45) % Atypical Lymphs % 2.0 H ( - 0) % Monocytes % (Manual) 34.0 H (2-11) % Eosinophils % (Manual) 2.0 (2-4) % Neutrophils # (Manual) 1360 L (2222-9867) /uL RBC Morphology Not Reportable Hypochromasia 2+ H Poikilocytosis 3+ H Anisocytosis 2+ H Target Cells 2+ H Schistocytes 2+ H PT 13.2 H (10.1-12.7) SECONDS INR 1.2 (0.9-1.3) APTT 33 (26.4-36.2) SECONDS Sodium 139 (137-145) mmol/L Potassium 4.0 (3.4-5.1) mmol/L Chloride 106 (98-107) mmol/L Carbon Dioxide 27 (22-32) mmol/L BUN 18 H (7-17) mg/dL Creatinine 0.83 (0.52-1.04) mg/dL Estimated GFR > 60.0 (>60) mL/min BUN/Creatinine Ratio 21.7 (6-22) Glucose 119 H (80-110) mg/dL Calcium 9.3 (8.4-10.2) mg/dL Total Bilirubin 0.9 (0.2-1.3) mg/dL AST 23 (14-36) IU/L ALT 14 (<35) IU/L Alkaline Phosphatase 69 (38-126) U/L Total Creatine Kinase < 20 L (30-135) U/L CK-MB (CK-2) TNP CK-MB (CK-2) Rel Index TNP Troponin I < 0.012 (0.01-0.034) ng/mL Total Protein 7.9 (6.3-8.2) g/dL Albumin 4.2 (3.5-5.0) g/dL Globulin 3.7 (1.7-4.1) g/dL Albumin/Globulin Ratio 1.1 (1.0-2.8) Lipase 78 (23-300) U/L SARS-CoV-2 (PCR) (Negative) 06/21/21 Range/Units 11:42 WBC (4.5-11.0) X10^3/uL RBC (4.0-5.2) X10^6/uL Hgb (12.0-16.0) g/dL Hct (36-46) % MCV (80-100) fL MCH (26-34) PG MCHC (30-36) % RDW (11.6-14.8) % Plt Count (150-400) X10^3/uL Neut % (Auto) Lymph % (Auto) Sanborn % (Auto) Eos % (Auto) Baso % (Auto) Lymph # (Auto) Sanborn # (Auto) Baso # (Auto) Total Counted Seg Neutrophils % (38-70) % Band Neutrophils % (3-7) % Lymphocytes % (Manual) (25-45) % Atypical Lymphs % ( - 0) % Monocytes % (Manual) (2-11) % Eosinophils % (Manual) (2-4) % Neutrophils # (Manual) (0653-4545) /uL RBC Morphology Hypochromasia Poikilocytosis Anisocytosis Target Cells Schistocytes PT (10.1-12.7) SECONDS INR (0.9-1.3) APTT (26.4-36.2) SECONDS Sodium (137-145) mmol/L Potassium (3.4-5.1) mmol/L Chloride (98-107) mmol/L Carbon Dioxide (22-32) mmol/L BUN (7-17) mg/dL Creatinine (0.52-1.04) mg/dL Estimated GFR (>60) mL/min BUN/Creatinine Ratio (6-22) Glucose (80-110) mg/dL Calcium (8.4-10.2) mg/dL Total Bilirubin (0.2-1.3) mg/dL AST (14-36) IU/L ALT (<35) IU/L Alkaline Phosphatase (38-126) U/L Total Creatine Kinase (30-135) U/L CK-MB (CK-2) CK-MB (CK-2) Rel Index Troponin I (0.01-0.034) ng/mL Total Protein (6.3-8.2) g/dL Albumin (3.5-5.0) g/dL Globulin (1.7-4.1) g/dL Albumin/Globulin Ratio (1.0-2.8) Lipase (23-300) U/L SARS-CoV-2 (PCR) Negative (Negative) Imaging Data Chest x-ray: Radiologist's Impression: [address] [address] XRay Report Signed Patient: Rhona Parry MR#: [id number] : 1945 Acct:[id number] Age/Sex: 76 / F Date of Service: 06/21/21 Loc: ED Accession Number: [id number] ?? Procedure: XR chest 1V Ordering Provider: Josesito Brooks D.O. PROCEDURE:? XR CHEST 1V ? INDICATIONS:? Chest pain ? TECHNIQUE:? One view of the chest was acquired.? ? COMPARISON:? [facility], CT, CT ANGIO CHEST PE PROTOCOL, 06/12/2021, 9:50.? [facility], CR, XR CHEST 1V, 08/11/2020, 10:47.? [facility], CT, CT CHEST ABD PEL W CON, 11/14/2020, 10:30.? [facility], CR, XR CHEST 1V, 04/26/2021, 11:53. ? FINDINGS:? ? Surgical changes and devices:? There is an electronic device overlying the left thorax.? There is a stable right-sided chest port. ? Lungs and pleura:? There is a small right-sided pleural effusion with overlying presumed atelectasis.? The left lung appears clear.? There is no pneumothorax. ? Mediastinum:? The cardiac contours are within normal limits.? Fullness of the mediastinum can be seen, which is consistent with known enlarged mediastinal lymph nodes.? The aorta demonstrates calcification and tortuosity. ? Bones and chest wall:? Age-appropriate bony degenerative changes are seen.? No suspicious bony lesions.? Apparent remote fracture of the right humeral neck.? Please correlate with known history.? Overlying soft tissues appear unremarkable.? ? ? IMPRESSION:? Small right-sided pleural effusion with overlying atelectasis. ? Postoperative and degenerative changes are seen.? ? Mediastinal fullness is seen, which is consistent with the known enlarged mediastinal lymph nodes. ? Dictated by: Isaías Christian M.D. on 06/21/2021 at 8:51 ? ? Approved by: Iasías Christian M.D. on 06/21/2021 at 8:54? ECG Data Attestation: I personally reviewed and interpreted this ECG as follows: Prior ECG tracings: available for review Interpretation: Sinus rhythm Ventricular rate is 70 Normal axis Normal QRS ST depression V2 V3 no ST elevations MDM Narrative Medical decision making narrative: Patient is leukopenic and anemic and thrombocytopenic however there are baseline for her. Patient has had symptoms for greater than 6 hours in her troponin is negative. Chest x-ray shows pleural effusion which is baseline. Her EKG does show ST depressions in V2 and V3 without ST elevations. This is new with comparison of EKG done the last time she was here just a few weeks ago. She does have paroxysmal AFib. She has sinus rhythm on her EKG but I did observe atrial fibrillation on the pvc monitor. When she is lying in bed she reports no pain. She is given an aspirin. Was started on heparin. Did discuss the case with Dr. Darnell with cardiology who recommended transfer to facility with Cardiovascular Services as her symptoms are most consistent with unstable angina. I discussed the case with Internal Medicine at [facility] who accepts the patient for transfer. Patient is stable for transport. Patient was informed of the findings today and our concerns and expressed understanding and agreement with plan and transfer. Discharge Plan Departure Patient Disposition: [facility] Clinical Impression: Unstable angina, Paroxysmal atrial fibrillation, Anemia, Ovarian cancer Prescriptions: No Action benazepril 10 MG tablet 10 mg PO QDAY Qty: 0 0RF atorvastatin 10 mg tablet 10 mg PO DAILY 0RF colchicine [Colcrys] 0.6 mg tablet 0.6 mg PO DIRECTED 0RF Label Comments: Take 2-3 tablet by mouth single dose as needed Take 2 tablets at onset of gout attack, then one tablet one hour later. Maximum 3 tablets per acute attack. Avastin 25 mg/mL Solution 900 mg IV Q3W 0RF metoprolol tartrate 25 MG tablet 25 mg PO DAILY 0RF Rx Instructions: 1900 calcium 600 mg Capsule 600 mg PO DAILY 0RF vitamin B complex Tablet Extended Release 1 tab PO DAILY 0RF cranberry 500 mg Capsule 650 mg PO DAILY 0RF glucosamine sulfate 750 mg Tablet 1,500 mg BID 0RF alendronate 70 mg Tablet 70 mg PO QWEEK 0RF Rx Instructions: takes saturday Referrals: Kalani Ogden MD [Primary Care Provider] -
[2021-06-21 09:46] LABS: Hematocrit 26.6 % (36-46); Hemoglobin 8.7 g/dL (12.0-16.0); Mean Corpuscular HGB Conc 32.8 % (30-36); Mean Corpuscular Hemoglobin 29.2 PG (26-34); Platelet Count 106 X10^3/uL (150-400); Red Blood Cell Count 2.98 X10^6/uL (4.0-5.2); Red Cell Distribution Width 42.1 % (11.6-14.8); White Blood Cell Count 3.4 X10^3/uL (4.5-11.0)
[2021-06-21 09:48] LABS: Add Manual Diff / Slide Review YES
[2021-06-21 09:55] LABS: Alanine Aminotransferase 14 IU/L (<35); Albumin 4.2 g/dL (3.5-5.0); Albumin Globulin Ratio 1.1 (1.0-2.8); Alkaline Phosphatase 69 U/L (38-126); Aspartate Aminotransferase 23 IU/L (14-36); BUN Creatinine Ratio 21.7 (6-22); Bilirubin Total 0.9 mg/dL (0.2-1.3); Blood Urea Nitrogen 18 mg/dL (7-17); Calcium 9.3 mg/dL (8.4-10.2); Carbon Dioxide 27 mmol/L (22-32); Chloride 106 mmol/L (98-107); Creatine Kinase < 20 U/L (30-135); Estimated Glomerular Filt Rate > 60.0 mL/min (>60); Globulin 3.7 g/dL (1.7-4.1); Glucose 119 mg/dL (80-110); HEMOLYSIS < 15 (0-50); Lipase 78 U/L (23-300); Sodium 139 mmol/L (137-145); Total Protein 7.9 g/dL (6.3-8.2)
[2021-06-21 10:05] LABS: Troponin I < 0.012 ng/mL (0.01-0.034)
[2021-06-21 10:11] LABS: Hypochromasia 2+; Neutrophils Absolute Manual 1360 /uL (3000-5900); Poikilocytosis 3+; Schistocytes 2+; Total Cells Counted 50
[2021-06-21 10:12] LABS: Anisocytosis 2+; Target Cells 2+
[2021-06-21] MEDS: ASPIRIN 81 MG CHEW TAB 324 MG PO (11:48)
[2021-06-21 12:14] LABS: COVID19 -Nasal RAPID Negative (Negative)
[2021-06-21 13:36] LABS: INR 1.2 (0.9-1.3); Prothrombin Time 13.2 SECONDS (10.1-12.7)
[2021-06-21 13:38] LABS: PTT Partial Thromboplastin Tim 33 SECONDS (26.4-36.2)
[2021-06-21] MEDS: HEPARIN 5,000 UNIT/ML VIAL 4000 UNIT IV (14:11)
[2021-06-21] MEDS: HEPARIN DRIP 25,000 UNIT/500 ML IV.SOLN 13.39 UNIT IV (14:11)
--- NOTE | 2021-06-21 14:13 | PC.NURSE ---
Heparin Cosigned by carlton Nelson Rn
--- NOTE | 2021-06-21 16:57 | PC.NURSE ---
Nurse report [phone] to pt transfer center at [facility] spoke with jensen ibrahim
== END 2021-06-21 17:00 | disposition short-term general hospital (02) ==
PROVIDERS: Emergency Provider Emergency Medicine; Family Provider Obstetrics & Gynecology; PCP Family Medicine
DX: I20.0 Unstable angina (principal); I48.0 Paroxysmal atrial fibrillation; D64.9 Anemia, unspecified; Z20.822 Contact with and (suspected) exposure to COVID-19
CPT/HCPCS: 36415; 71045; 80053; 82550; 83690; 84484; 85007; 85025; 85610; 85730; 87635; 93005; 96365; 96366; 96376; 99284; 99285; C9803; J1644

== ENCOUNTER → 2021-07-31 11:20 | Outpatient (CLI) | payer MEDICARE, OTHER, SELFPAY ==
[2021-06-12 12:38] VITALS: BMI 23.5
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
== END ==
PROVIDERS: Family Provider Obstetrics & Gynecology; PCP Family Medicine; Referring Provider Internal Medicine Hematology & Oncology; Visit Provider Internal Medicine Hematology & Oncology
DX: C56.9 Malignant neoplasm of unspecified ovary (principal); I42.7 Cardiomyopathy due to drug and external agent; J90 Pleural effusion, not elsewhere classified; R59.0 Localized enlarged lymph nodes; R91.1 Solitary pulmonary nodule
CPT/HCPCS: 71260; 74177

== ENCOUNTER → 2021-09-29 16:00 | Outpatient (CLI) | payer MEDICARE, OTHER, SELFPAY ==
[2021-06-12 12:38] VITALS: BMI 23.5
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
== END ==
PROVIDERS: Family Provider Obstetrics & Gynecology; PCP Family Medicine; Referring Provider Family Medicine; Visit Provider Family Medicine
DX: S29.9XXA Unspecified injury of thorax, initial encounter (principal); M50.320 Other cervical disc degeneration, mid-cervical region, unspecified level; M51.34 Other intervertebral disc degeneration, thoracic region; M47.812 Spondylosis without myelopathy or radiculopathy, cervical region; V89.2XXA Person injured in unspecified motor-vehicle accident, traffic, initial encounter
CPT/HCPCS: 72040; 72070

== ENCOUNTER → 2021-10-06 11:20 | Outpatient (CLI) | payer MEDICARE, OTHER, SELFPAY ==
[2021-06-12 12:38] VITALS: BMI 23.5
--- NOTE | 2021-10-06 | DI.RAD.S_ITS ---
PROCEDURE: XR PELVIS 1-2V INDICATIONS: PAIN IN PELVIC TECHNIQUE: 1 view(s) of the pelvis acquired. COMPARISON: None. FINDINGS: Bones: No fractures or dislocations. Moderate bilateral hip joint osteoarthritic changes are seen. No evidence of avascular necrosis of femoral head. No suspicious bony lesions. Soft tissues: Visualized bowel gas pattern is normal. No suspicious soft tissue calcifications. IMPRESSION: Moderate bilateral hip joint osteoarthritis. No pelvic or hip fracture. No evidence of avascular necrosis. Dictated by: Yassine Hale M.D. on 10/06/2021 at 12:37 Approved by: Yassine Hale M.D. on 10/06/2021 at 12:37
--- NOTE | 2021-10-06 | DI.RAD.S_ITS ---
PROCEDURE: XR KNEE RT 3V INDICATIONS: PAIN IN KNEE TECHNIQUE: 3 views of the knee were acquired. COMPARISON: None. FINDINGS: Bones: No fractures or dislocations. [id number] tricompartmental osteoarthritis is seen more prominent in medial femoral tibial compartment. No suspicious bony lesions. Soft tissues: No joint effusion. No suspicious soft tissue calcifications. IMPRESSION: No acute right knee fracture or dislocation. Dswf-[id number] tricompartmental osteoarthritis. No significant joint effusion. Dictated by: Yassine Hale M.D. on 10/06/2021 at 12:36 Approved by: Yassine Hale M.D. on 10/06/2021 at 12:37
== END ==
PROVIDERS: Family Provider Obstetrics & Gynecology; PCP Family Medicine; Referring Provider Family Medicine; Visit Provider Family Medicine
DX: M25.561 Pain in right knee (principal); M17.11 Unilateral primary osteoarthritis, right knee; M16.0 Bilateral primary osteoarthritis of hip; R10.2 Pelvic and perineal pain
CPT/HCPCS: 72170; 73562

== ENCOUNTER 2021-10-13 13:35 | Inpatient (IN) | payer MEDICARE, OTHER, SELFPAY ==
[2021-06-12 12:38] VITALS: BMI 23.5
[2021-10-13] VITALS (31 sets, daily range): BP systolic 142–174; BP diastolic 67–96; PULSE 88–155; RESP 6–39; TEMP 36.9–37; O2SAT 92–96; BMI 23.8
--- NOTE | 2021-10-13 14:10 | DI.RAD.S_ITS ---
PROCEDURE: XR CHEST 1V INDICATIONS: chest pain TECHNIQUE: One view of the chest was acquired. COMPARISON: [facility], CT, CT CHEST ABD PEL W CON, 07/31/2021, 12:15. [facility], CR, XR CHEST 1V, 06/21/2021, 9:38. Loc[facility], CR, XR CHEST 1V, 04/26/2021, 11:53. FINDINGS: Surgical changes and devices: Right-sided port with the catheter tip projecting at the cavoatrial junction. Cardiac monitoring device. Lungs and pleura: Mild opacity at the right lower lobe. Right pleural effusion is again seen. No pneumothorax. Mediastinum: Mediastinal contours appear unchanged. Heart size is within normal limits. Bones and chest wall: No suspicious bony lesions. Right shoulder DJD. Overlying soft tissues appear unremarkable. IMPRESSION: Right pleural effusion appears similar. Right lower lobe airspace opacity. This could be due to compressive atelectasis or pneumonia. Dictated by: Adilson Joe M.D. on 10/13/2021 at 14:32 Approved by: Adilson Joe M.D. on 10/13/2021 at 14:34
[2021-10-13 14:31] LABS: Hematocrit 24.4 % (36-46); Hemoglobin 8.2 g/dL (12.0-16.0); Mean Corpuscular HGB Conc 33.5 % (30-36); Mean Corpuscular Hemoglobin 24.4 PG (26-34); Mean Corpuscular Volume 72.8 fL (80-100); Platelet Count 102 X10^3/uL (150-400); Red Blood Cell Count 3.35 X10^6/uL (4.0-5.2); Red Cell Distribution Width 34.1 % (11.6-14.8); White Blood Cell Count 3.8 X10^3/uL (4.5-11.0)
[2021-10-13 14:35] LABS: Add Manual Diff / Slide Review YES
[2021-10-13 14:37] LABS: INR 1.2 (0.9-1.3); Prothrombin Time 13.6 SECONDS (10.1-12.7)
[2021-10-13 14:39] LABS: PTT Partial Thromboplastin Tim 30 SECONDS (26.4-36.2)
[2021-10-13 14:50] LABS: Anisocytosis 4+; Neutrophils Absolute Manual 646 /uL (3000-5900); Total Cells Counted 100
[2021-10-13 14:51] LABS: Hypochromasia 2+; Ovalocytes 1+; Schistocytes 2+
[2021-10-13 14:53] LABS: RBC Morphology See
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
--- NOTE | 2021-10-13 16:49 | DI.CT.S_ITS ---
PROCEDURE: CT ANGIO CHEST PE PROTOCOL INDICATIONS: sob, elevated HR TECHNIQUE: After the administration of intravenous contrast, 2 mm thick sections acquired from the pulmonary apices to the posterior costophrenic angles. 3-dimensional maximum intensity projection (MIP) coronal and sagittal reformats were then acquired through the thorax. For radiation dose reduction, the following was used: automated exposure control, adjustment of mA and/or kV according to patient size. COMPARISON: [facility], CR, XR CHEST 1V, 10/13/2021, 14:11. [facility], CT, CT ANGIO CHEST PE PROTOCOL, 06/12/2021, 9:50. FINDINGS: Image quality: Excellent. Pulmonary arteries: Pulmonary arteries are normal in size, and demonstrate no intraluminal filling defects to suggest central pulmonary embolism. Lungs and pleura: Large loculated right-sided pleural fluid collection is increased in size compared to June 12, 2021. Small left-sided pleural fluid collection is developed in the interval since the prior exam. There is consolidation in the left lung base which likely represents compressive atelectasis. Pleural thickening in the left lung base has worsened compared to June 12, 2021 and there is definite posterior chest wall invasion between the right 10th and 11th ribs. compatible with progression of metastatic disease. 6 millimeter right upper lobe medial nodule (previously 5 millimeters) compatible with progression of metastatic disease. Additional nodules are unchanged compared to the prior examination. No new lung nodules identified. No pneumothorax. Central and peripheral airways are patent. Mediastinum: Heart enlarged without pericardial effusion. Atherosclerotic calcifications are noted in the aorta, great vessels and the coronary vasculature. N enlarged mediastinal right hilar lymphadenopathy is increased in size compared to June 12, 2021 compatible with progression of metastatic disease. New enlarged left hilar lymph nodes are noted compatible with progression of metastatic disease. Thoracic aorta is normal in caliber and enhancement. Esophagus is normal in caliber, without hiatal hernia. Bones and chest wall: Right chest wall Port-A-Cath. No suspicious bony lesions. Ribs and thoracic spine appear intact throughout. Thyroid gland is normal. No axillary or supraclavicular adenopathy. Abdomen: Visualized upper abdominal solid organs appear normal in the early arterial phase of enhancement. IMPRESSION: 1. No pulmonary embolus. 2. Large loculated right-sided pleural fluid collection increased in size compared to June 12, 2021. New small left-sided pleural effusion. 3. Increased right pleural thickening with definite chest wall invasion compared to June 12, 2021 compatible with progression metastatic disease. 5. Mediastinal and right hilar lymphadenopathy increased in size compared to 06/12/2021 compatible with progression of metastatic disease. 6. Medial right upper lobe lung nodule increased in size compared to prior exam compatible with progression of metastatic disease. Additional lung nodules are not significantly changed. Dictated by: Davina Flynn MD, PhD on 10/13/2021 at 17:36 Approved by: Davina Flynn MD, PhD on 10/13/2021 at 17:52
[2021-10-13 16:58] LABS: Creatine Kinase < 20 U/L (30-135); Troponin I < 0.012 ng/mL (0.01-0.034)
[2021-10-13 16:59] LABS: Alanine Aminotransferase 16 IU/L (<35); Aspartate Aminotransferase 25 IU/L (14-36); BUN Creatinine Ratio 38.6 (6-22); Bilirubin Total 0.8 mg/dL (0.2-1.3); Blood Urea Nitrogen 27 mg/dL (7-17); Calcium 8.6 mg/dL (8.4-10.2); Carbon Dioxide 23 mmol/L (22-32); Chloride 105 mmol/L (98-107); Estimated Glomerular Filt Rate > 60 mL/min (>60); Glucose 130 mg/dL (80-110); Magnesium 1.8 mg/dL (1.6-2.3); Potassium 4.3 mmol/L (3.4-5.1); Sodium 137 mmol/L (137-145)
[2021-10-13 17:00] LABS: Albumin 3.5 g/dL (3.5-5.0); Albumin Globulin Ratio 0.8 (1.0-2.8); Alkaline Phosphatase 73 U/L (38-126); Globulin 4.2 g/dL (1.7-4.1); HEMOLYSIS < 15 (0-50); Lipase 100 U/L (23-300); Total Protein 7.7 g/dL (6.3-8.2)
[2021-10-13 17:19] LABS: COVID19 -Nasal RAPID Negative (Negative)
[2021-10-13] MEDS: ADENOSINE 6 MG/2 ML VIAL IV (18:03)
[2021-10-13] MEDS: SODIUM CHLORIDE 0.9% 1,000 ML 1000 ML IV (18:14)
[2021-10-13] MEDS: METOPROLOL TARTRATE 5 MG/5 ML INJ IV ×2 (18:14→18:32)
[2021-10-13 19:31] LABS: D Dimer 949 ng/mL (<230)
[2021-10-13 19:34] LABS: Lactate (Lactic Acid) 1.1 mmol/L (0.7-2.1)
[2021-10-13 19:42] LABS: NT-proBNP (BNP-Adult 18+) 1030 pg/mL (<450)
[2021-10-13 19:50] LABS: Procalcitonin 0.33 ng/mL (<0.5)
[2021-10-13] MEDS: METOPROLOL IR 25 MG TABLET PO (20:32)
[2021-10-14 06:00] VITALS: BP 150/87; PULSE 119; RESP 18; TEMP 37.5; O2SAT 95
[2021-10-14 07:02] LABS: Add Manual Diff / Slide Review YES; Hematocrit 21.2 % (36-46); Hemoglobin 7.1 g/dL (12.0-16.0); Mean Corpuscular HGB Conc 33.4 % (30-36); Mean Corpuscular Hemoglobin 24.2 PG (26-34); Mean Corpuscular Volume 72.5 fL (80-100); Platelet Count 81 X10^3/uL (150-400); Red Blood Cell Count 2.93 X10^6/uL (4.0-5.2); Red Cell Distribution Width 32.4 % (11.6-14.8); White Blood Cell Count 2.1 X10^3/uL (4.5-11.0)
--- NOTE | 2021-10-14 07:04 | PC.NURSE ---
Admit/NOC Shift Note- Patient arrived to room via stretcher from ER at 2230. Patient alert and oriented and able to make needs known to staff. Admit questions done, medications reviewed, physical assessment done, and skin check completed. Patient oriented to bed and bed controls, room, lights, phone, bathroom, menu, and call serrano/TV remote. Safety measures in place. Patient agrees to call for assistance. Bed alarm activated. Call serrano and phone within reach. will continue to monitor.
[2021-10-14 07:37] LABS: Anisocytosis 3+; Neutrophils Absolute Manual 168 /uL (3000-5900); Poikilocytosis 3+; Total Cells Counted 100
[2021-10-14 07:53] LABS: BUN Creatinine Ratio 31.3 (6-22); Blood Urea Nitrogen 20 mg/dL (7-17); Carbon Dioxide 25 mmol/L (22-32); Chloride 107 mmol/L (98-107); Estimated Glomerular Filt Rate > 60 mL/min (>60); Glucose 106 mg/dL (80-110); HEMOLYSIS < 15 (0-50); Potassium 4.1 mmol/L (3.4-5.1); Sodium 136 mmol/L (137-145)
[2021-10-14 08:00] VITALS: BP 135/81; PULSE 118; RESP 16; TEMP 36.7; O2SAT 93
[2021-10-14 08:57] VITALS: BP 135/81; PULSE 130
[2021-10-14] MEDS: ENOXAPARIN 40 MG/0.4 ML SYRINGE SUBCUT (08:57)
[2021-10-14] MEDS: lisinopriL 10 MG TABLET PO (08:57)
[2021-10-14] MEDS: METOPROLOL IR 25 MG TABLET PO ×2 (08:59→13:07)
[2021-10-14] MEDS: FERROUS SULFATE 325 MG TABLET PO (08:59)
[2021-10-14 11:01] VITALS: BP 128/61; PULSE 111; RESP 18; TEMP 36.9; O2SAT 96
--- NOTE | 2021-10-14 11:16 | P.HP_ITS ---
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 The pt reports that for the last several weeks she has felt increasingly SOB and weak. This acutely worsened yesterday. She states that yesterday it felt like she was suffocating. She was unable to walk across the main living space in her house without feeling like she would fall due to feeling so weak. She denies specific palpitations, but does report sometimes feeling a pounding in her chest. She decided to come to the ED yesterday due to how severe the SOB had become. The pt denies any significant chest pain. She denies any recent abdominal pain, LE edema, dysuria, change in bowel habits, cough. 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 She continues to actively pursue treatment, but understands her prognosis is poor. She is currently being treated with Avastin. Based on patient report, records not currently available for review, she has also been seeing Cardiology for a possible arrhythmia. She had a Zio patch completed in May that showed rare PACs, PVCs, and very brief runs of SVT. She states they were waiting on pts prognosis from Oncology prior to proceeding with additional testing, because if her life expectancy was quite short it wouldn't be worth pursuing the additional testing. In the ED, the pt was noted to be significantly tachycardic, to the 150s, but in sinus rhythm. She received one dose of Adenosine that slowed her HR slightly but did not entirely control it. Her HR responded to IV Metoprolol. She was noted to be anemic, but stable from previous. Additional lab work including cardiac work-up was reassuring. The pt was not hypoxic, and required no oxygen supplementation. Past medical history: 1. Stage IV high-grade serous mullerian adenocarcinoma - diagnosed in early 2017.? She receives care from Dr. Huggins.? She has been on Avastin since December 06, 2020 She was shown to have disease progression with her previous chemotherapy agent 2. Hypertension 3. Hyperlipidemia 4. Osteoporosis 5. Premature atrial contractions 6. Possible atrial flutter/fib - currently being worked-up with Cardiology 7. Gout 8. Normal spontaneous vaginal deliveries x3 Past surgical history: ? 07/10/2017 she had a MANGO and BSO and debulking and omentectomy Urethral stenosis Cataract removal and lens replacement Family history: Mother had coronary artery disease.? She had a stent placed Brother of a stroke at age 63 Two? Brothers with coronary artery disease and status post stent Social history: Patient is .? She has a son who lives with her in [place].? She has a son that lives in [place].? 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 Patient History Medical History Atypical chest pain Cardiac arrhythmia, unspecified Malignant pleural effusion Pleural effusion Surgical History History of cataract removal with insertion of prosthetic lens Family & Social History Social History: household members children Prior Living Arrangements House Safety & Behavioral: Feels Safe in Current Yes Environment Been Physically Hurt or No Threatened By a Person Tobacco & Substance use: Smoking Status Never smoker alcohol intake current alcohol intake frequency holiday/special occasion Substance Use Type does not use Meds Home Medications and Allergies Home Medications Medication Instructions Recorded Confirmed Type benazepril 10 mg tablet 10 mg PO QDAY ##0 06/26/16 10/13/21 History metoprolol tartrate 25 mg tablet 25 mg PO BID 02/25/20 10/13/21 History calcium 600 mg capsule 600 mg PO DAILY 04/07/20 10/13/21 History cranberry 500 mg capsule 650 mg PO DAILY 04/07/20 10/13/21 History glucosamine sulfate 750 mg tablet 1,500 mg BID 04/07/20 10/13/21 History alendronate 70 mg tablet 70 mg PO QWEEK 05/05/20 10/13/21 History atorvastatin 10 mg tablet 10 mg PO DAILY 06/12/21 10/13/21 History bevacizumab 25 mg/mL intravenous 900 mg IV Q3W 06/12/21 10/13/21 History solution (Avastin) colchicine 0.6 mg tablet (Colcrys) 0.6 mg PO DIRECTED 06/12/21 10/13/21 History ferrous sulfate 325 mg (65 mg 325 mg PO DAILY 07/27/21 10/13/21 History iron) tablet (iron) meloxicam 7.5 mg tablet 1 tab PO BID 10/13/21 10/13/21 History Allergies Allergy/AdvReac Type Severity Reaction Status Date / Time No Known Allergies Allergy Unknown Verified 06/12/21 09:47 [NO KNOWN ALLERGIES] Exam Vital Signs (past 8 hours): - 10/14/21 06:00 10/14/21 07:59 10/14/21 08:57 Temperature 99.5 F 98.1 F Pulse Rate 119 H 118 H 130 H Respiratory Rate 18 16 Blood Pressure 150/87 H 135/81 135/81 Pulse Oximetry 95 93 Oxygen Flow Rate 0 0 10/14/21 11:01 Temperature 98.4 F Pulse Rate 111 H Respiratory Rate 18 Blood Pressure 128/61 Pulse Oximetry 96 Oxygen Flow Rate 0 Oxygen Delivery Method Room Air Oxygen Flow Rate 0 Narrative Exam Narrative: GEN - alert, cooperative and no distress HEENT - normocephalic and atraumatic, sclera white, moist mucus membranes NECK - FROM, no adenopathy, no JVD HEART - RRR, S1, S2 normal, no S3 or S4, no murmurs LUNGS - symmetric chest rise, no accessory muscles, clear to auscultation bilaterally ABD - flat, nondistended, normal bowel sounds, soft, nontender and no hepatomegaly, splenomegaly or masses EXT - no cyanosis, clubbing or edema SKIN - no rashes or suspicious lesions NEURO - no gross deficits Objective Labs Result Diagrams: 10/14/21 06:09 10/14/21 06:09 Labs: Laboratory Results - last 24 hr 10/13/21 10/13/21 10/13/21 14:12 14:12 14:12 WBC 3.8 L RBC 3.35 L Hgb 8.2 L Hct 24.4 L MCV 72.8 L MCH 24.4 L MCHC 33.5 RDW 34.1 H Plt Count 102 L Neut % (Auto) Not Reportable Lymph % (Auto) Not Reportable [place] % (Auto) Not Reportable Eos % (Auto) Not Reportable Baso % (Auto) Not Reportable Lymph # (Auto) Not Reportable [place] # (Auto) Not Reportable Baso # (Auto) Not Reportable Total Counted 100 Seg Neutrophils % 17.0 L Lymphocytes % (Manual) 20.0 L Atypical Lymphs % 15.0 H Monocytes % (Manual) 47.0 H Basophils % (Manual) 1.0 Neutrophils # (Manual) 646 L RBC Morphology See Hypochromasia 2+ H Poikilocytosis Anisocytosis 4+ H Ovalocytes 1+ H Schistocytes 2+ H PT 13.6 H INR 1.2 APTT 30 D-Dimer Sodium 137 Potassium 4.3 Chloride 105 Carbon Dioxide 23 BUN 27 H Creatinine 0.70 Estimated GFR > 60 BUN/Creatinine Ratio 38.6 H Glucose 130 H Lactate Calcium 8.6 Magnesium 1.8 Total Bilirubin 0.8 AST 25 ALT 16 Alkaline Phosphatase 73 Total Creatine Kinase < 20 L CK-MB (CK-2) TNP CK-MB (CK-2) Rel Index TNP Troponin I < 0.012 NT-Pro-B Natriuret Pep Total Protein 7.7 Albumin 3.5 Globulin 4.2 H Albumin/Globulin Ratio 0.8 L Lipase 100 Procalcitonin SARS-CoV-2 (PCR) 10/13/21 10/13/21 10/13/21 14:20 19:00 19:00 WBC RBC Hgb Hct MCV MCH MCHC RDW Plt Count Neut % (Auto) Lymph % (Auto) [place] % (Auto) Eos % (Auto) Baso % (Auto) Lymph # (Auto) [place] # (Auto) Baso # (Auto) Total Counted Seg Neutrophils % Lymphocytes % (Manual) Atypical Lymphs % Monocytes % (Manual) Basophils % (Manual) Neutrophils # (Manual) RBC Morphology Hypochromasia Poikilocytosis Anisocytosis Ovalocytes Schistocytes PT INR APTT D-Dimer 949 H Sodium Potassium Chloride Carbon Dioxide BUN Creatinine Estimated GFR BUN/Creatinine Ratio Glucose Lactate Calcium Magnesium Total Bilirubin AST ALT Alkaline Phosphatase Total Creatine Kinase CK-MB (CK-2) CK-MB (CK-2) Rel Index Troponin I NT-Pro-B Natriuret Pep 1030 H Total Protein Albumin Globulin Albumin/Globulin Ratio Lipase Procalcitonin SARS-CoV-2 (PCR) Negative 10/13/21 10/13/21 10/14/21 19:00 19:00 06:09 WBC 2.1 L RBC 2.93 L Hgb 7.1 L Hct 21.2 L MCV 72.5 L MCH 24.2 L MCHC 33.4 RDW 32.4 H Plt Count 81 L Neut % (Auto) Not Reportable Lymph % (Auto) Not Reportable [place] % (Auto) Not Reportable Eos % (Auto) Not Reportable Baso % (Auto) Not Reportable Lymph # (Auto) Not Reportable [place] # (Auto) Not Reportable Baso # (Auto) Not Reportable Total Counted 100 Seg Neutrophils % 8.0 L D Lymphocytes % (Manual) 33.0 Atypical Lymphs % 11.0 H Monocytes % (Manual) 48.0 H Basophils % (Manual) Neutrophils # (Manual) 168 L RBC Morphology Not Reportable Hypochromasia Poikilocytosis 3+ H Anisocytosis 3+ H Ovalocytes Schistocytes PT INR APTT D-Dimer Sodium Potassium Chloride Carbon Dioxide BUN Creatinine Estimated GFR BUN/Creatinine Ratio Glucose Lactate 1.1 Calcium Magnesium Total Bilirubin AST ALT Alkaline Phosphatase Total Creatine Kinase CK-MB (CK-2) CK-MB (CK-2) Rel Index Troponin I NT-Pro-B Natriuret Pep Total Protein Albumin Globulin Albumin/Globulin Ratio Lipase Procalcitonin 0.33 SARS-CoV-2 (PCR) 10/14/21 06:09 WBC RBC Hgb Hct MCV MCH MCHC RDW Plt Count Neut % (Auto) Lymph % (Auto) [place] % (Auto) Eos % (Auto) Baso % (Auto) Lymph # (Auto) [place] # (Auto) Baso # (Auto) Total Counted Seg Neutrophils % Lymphocytes % (Manual) Atypical Lymphs % Monocytes % (Manual) Basophils % (Manual) Neutrophils # (Manual) RBC Morphology Hypochromasia Poikilocytosis Anisocytosis Ovalocytes Schistocytes PT INR APTT D-Dimer Sodium 136 L Potassium 4.1 Chloride 107 Carbon Dioxide 25 BUN 20 H Creatinine 0.64 Estimated GFR > 60 BUN/Creatinine Ratio 31.3 H Glucose 106 Lactate Calcium 8.0 L Magnesium Total Bilirubin AST ALT Alkaline Phosphatase Total Creatine Kinase CK-MB (CK-2) CK-MB (CK-2) Rel Index Troponin I NT-Pro-B Natriuret Pep Total Protein Albumin Globulin Albumin/Globulin Ratio Lipase Procalcitonin SARS-CoV-2 (PCR) Assessment & Plan Assessment & Plan narrative: Pt is a 76yo woman with 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 Found to be in sinus tachycardia, responsive to beta blockers. 1) SOB: Significantly improved this morning. No hypoxia. BNP minimally elevated at admission, last Echo in July reportedly reassuring. Most likely due to tachycardia and pleural effusion, however improvement without intervention for effusion makes tachycardia most likely primary cause. - Continue to monitor for improvement - Echocardiogram ordered to ensure no cardiac involvement 2) Tachycardia: Reportedly with questionable atrial fibrillation previously. Telemetry revealing only sinus arrhythmia currently - with occasional 5-10 beat runs in sinus, then returning to sinus tachycardia. Pt with good response to beta blockers in the ED after adenosine x 1. - Continue telemetry - Increase home Metoprolol to 50mg BID - Echo as above 3) Hypertension: BP in good range - Continue home Benazepril - Metoprolol as above - Monitor BP closely as increase Metoprolol to ensure no hypotension 4) Hyperlipidemia: - Continue home Atorvastatin, do question need to continue in light of metastatic cancer 5) Stage IV mullerian cancer: With large loculated right sided pleural effusion. Effusion is growing, however pt without any respiratory distress/hyp oxia. She prefers to not have tapped at this point, and would be complicated by significant loculations. - Continue to monitor - If pt remains in hospital Saturday, will make Oncology aware 6) Malnutrition: 40lb weight loss in the past 2 years. Secondary to cancer and chemotherapy. - Dietary consult 7) Weakness: Multifactorial from cancer, chemotherapy, tachycardia. - PT consulted 8) Chronic anemia: From cancer and chemotherapy. Slight drop in H/H from yesterday. - Continue to trend - Transfusion threshold set by Oncology of 11/16 FEN: General diet DVT ppx: Lovenox Code: DNR Dispo: Pending improvement and stabilization of heart rate, SOB. Potentially ready for d/c tomorrow. Time Spent With Patient Critical Care time: I spent a total of [] minutes of critical care time on this patient's care today; this time is exclusive of procedural time. Quality VTE Deep Vein Thrombosis/Pulmonary Embolism Present on Admission: No
--- NOTE | 2021-10-14 11:25 | CM.DANOTE ---
Addendum entered by Susan Hilton R.N. 10/14/21 12:03: Correction: Admitted to care of Dr Kalani Ogden (not hospitalist team) JATIN Original Note: Initial Discharge Plan Assessment Note: Case received. EMR reviewed and met with patient in her room. 76 year old alert/oriented pleasant female resting in bed. She was admitted last evening to hospitalist team. PCP: Dr Kalani Ogden Payer: Medicare and [employer] Patient was admitted with weakness and SOB and diagnosed with arrhythmia. Per records she has a ovarian and right pleural effusion malignancies on chronic chemotherapy. Patient, her son Olivier and his girlfriend live together in [place]. Son and gf work on [employer] during week. Patient able to drive when she feels strong she states. Son or a friend will transport her home via private vehicle. Patient able to care of self independently. P: Upon discharge, patient desires to return to previous home living arrangement. JATIN Discharge Planning/Care Management CM Discharge Assessment Start: 10/14/21 11:22 Freq: Status: Active Protocol: Document 10/14/21 11:22 (Rec: 10/14/21 11:25 [id number]) Discharge Planning Assessment Assigned Accounts Payable Or Receivable Clerk Loreta Hilton RN/DCP Advance Directives? Yes: Living Will, Durable Power of Sales Representative Cash Registers Advance Directives on File No History Provided By Patient,Medical Record Prior Living Arrangements House Household Members children Comment Son Vinnie and his girlfriend. They work on [employer] during week. Type of transporation used prior to Drives own vehicle admit Independent with ADL's Yes Is patient alert and oriented? Yes Needs Assistance With Home Chores / Shopping Caregiver for Another No DME Already Rented / Owned FWW / Walker,Cane Comment States she has FWW and cane but usually does not use. Barriers to Discharge No Discharge Plan Home Transportation Arrangement Son or friend will transport patient home via private vehicle. Referrals Initiated None needed Whiteboard Updated in Patient Room with Yes name and ext. # of Accounts Payable Or Receivable Clerk Review Status In Process Next Review Type Continued Stay Review
--- NOTE | 2021-10-14 12:49 | DI.ECHO.S_ITS ---
[facility]---------+ [facility] +---------+ : : [address] : : : : [id number] : : : : Phone: [phone] Echocardiogram Report + + :Name: JUAN HERNANDEZ Study Date: 10/15/2021 Height: 60 in : :[facility] ReadingLocation: Weight: 122 lb: : Gender: Female BSA: 1.5 m2 : :: 1945 Age: 76 yrs : :Reason For Study: Tachycardia, Dyspnea : :Ordering Physician: GONZALO, : :BOOKER Performed By: Marva Bahena : :Referring: BOOKER SÁNCHEZ : + + Interpretation Summary Patient has sinus rhythm as well as intermittent runs of narrow QRS tachycardia possible sinus tachycardia however atrial tachycardia cannot be ruled out. The left ventricle is normal in size and wall thickness. During sinus rhythm, LV ejection fraction about 60 to 65% and during intermittent tachycardia run, LV function appears to be more hyperdynamic with LV ejection fraction was 70 to 75%. The right ventricle is normal in size and function. No significant valvular pathology seen. There is moderate luminal irregularity and echogenicity in the abdominal aorta, suggestive of aortic atherosclerotic disease. The IVC is of normal diameter and collapses greater than 50% with a sniff. This suggests a low right atrial pressure of 3 mm Hg. Procedure: A two-dimensional transthoracic echocardiogram with color flow and Doppler was performed. The study quality was technically adequate. Comparison is made with the echocardiogram of 05/25/2021. The heart rate ranged between 84-125 bpm during the study. The patient was in normal sinus rhythm during the exam. Patient has sinus rhythm as well as intermittent runs of narrow QRS tachycardia possible sinus tachycardia however atrial tachycardia cannot be ruled out. Left Ventricle: The left ventricle is normal in size and wall thickness. There is no thrombus. The ejection fraction is estimated to be 65-70%. During sinus rhythm, LV ejection fraction about 60 to 65% and during intermittent tachycardia run, LV function appears to be more hyperdynamic with LV ejection fraction was 70 to 75%. There are no focal wall motion abnormalities. Diastolic parameters suggest a relaxation abnormality of the left ventricle, consistent with probable normal filling pressures. Right Ventricle: The right ventricle is normal in size and function. Atria: Both atria are normal in size. Both atria have remained unchanged in size since the prior echo exam. There is no Doppler evidence for an interatrial shunt. Mitral Valve: There is mild mitral annular calcification. There is no mitral valve stenosis. There is trace mitral regurgitation. Aortic Valve: The aortic valve is trileaflet. The aortic valve opens well. There is mild aortic valve sclerosis. There is discrete nodular thickening of the non- coronary cusp. There is no aortic valve stenosis. There is trace aortic regurgitation. Tricuspid Valve: The tricuspid valve is normal. The right ventricular systolic pressure is estimated to be at least 27 mmHg based on an estimated right atrial pressure of 3 mm Hg. There is mild tricuspid regurgitation. Pulmonic Valve: The pulmonic valve is not well seen, but is grossly normal. There is a trace or physiologic amount of pulmonic regurgitation. Great Vessels: The aortic root is normal size. The ascending aorta is normal in size. There is moderate luminal irregularity and echogenicity in the abdominal aorta, suggestive of aortic atherosclerotic disease. The IVC is of normal diameter and collapses greater than 50% with a sniff. This suggests a low right atrial pressure of 3 mm Hg. Pericardium/ Pleura There is no pericardial effusion. There is a small right-sided pleural effusion. MMode/2D Measurements & Calculations LVIDd: 4.1 cm LVOT diam: 1.9 cm LVIDs: 2.6 cm Ao root diam: 2.8 cm FS: 35.1 % asc Aorta Diam: 3.2 cm IVSd: 0.92 cm LVPWd: 0.81 cm LV forte. diameter/BSA (cm/m^2): 2.7 LV sys. diameter/BSA (cm/m^2): 1.7 LA A2 area: 17.8 cm2 RA long axis: 3.8 cm LA A4 area: 15.4 cm2 RA area: 9.4 cm2 LA length (vol): 4.8 cm RA vol: 19.4 ml LA vol: 48.3 ml RA : 12.8 ml/m2 LA vol index: 32.0 ml/m2 RVD1 (basal): 3.8 cm TAPSE: 2.4 cm Doppler Measurements & Calculations Ao V2 max: 147.8 cm/sec LVOT Max Link: 122.4 cm/sec Ao V2 mean: 100.3 cm/sec LV V1 max P.0 mmHg Ao max P.7 mmHg LV V1 VTI: 19.4 cm Ao mean P.5 mmHg PARKER(I,D): 2.4 cm2 Ao V2 VTI: 22.2 cm PARKER(V,D): 2.3 cm2 sev ratio: 0.87 PARKER indexed to BSA (cm^2/m^2): 1.6 MV E max link: 83.0 cm/sec TR max link: 244.9 cm/sec MV A max link: 92.2 cm/sec TR max P.0 mmHg MV E/A: 0.90 PA V2 max: 114.3 cm/sec Med Peak E' Link: 7.3 cm/sec PA V2 mean: 81.6 cm/sec E/E' med: 11.4 PA mean P.9 mmHg Lat Peak E' Link: 8.0 cm/sec PA Accel Time: 0.03 sec E/E' lat: 10.4 E/e' average: 10.9 MV P1/2t: 67.2 msec MV P1/2t max link: 83.0 cm/sec SV(LVOT): 53.3 ml MVA(P1/2t): 3.3 cm2 Reading Physician:03:13 PM
--- NOTE | 2021-10-14 13:34 | OT.IP.EVAL ---
Past Medical History (Last Reviewed 10/13/21 @ 19:56 by Lizeth Arita DO) Atypical chest pain Cardiac arrhythmia, unspecified Malignant pleural effusion Pleural effusion Surgical History (Last Reviewed 10/13/21 @ 19:56 by Lizeth Arita DO) History of cataract removal with insertion of prosthetic lens Occupational Therapy Inpatient Evaluation/Re-Eval M1 PT/OT-IP Prior Functional Status Start: 10/14/21 14:34 Freq: NEEDED Status: Active Protocol: Document 10/14/21 14:34 CGR (Rec: 10/14/21 14:39 CGR [id number]) Medical Review Prior Functional Status Medical History Reviewed Yes Communication Pt is an effective verbal communicator. Mobility and Gait Pt was IND without AD at baseline. Activities of Daily Living and IADL's Pt is IND in all ADLs and IADLs at baseline. 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 Social History Household Members children Living Arrangements House Number of Floors (Floors) One Floor Number of Stairs To Enter/Railing? 3 with railing on L up to porch at front 1 step no railing at back Home Environment Standard Height Toilet,Walk in Shower,Built-In Shower Seat Home Equipment Front Wheel Walker,Straight Cane,Hand Held Shower,Grab Bars Near Toilet,Grab Bars In Shower Employment Status Retired Additional Social History Comment Pt lives with her son Olivier and the son's GF. They work on [employer] and are gone most of the day but back at night. M2 OT-IP Current Condition Start: 10/14/21 14:34 Freq: Status: Active Protocol: Document 10/14/21 14:34 CGR (Rec: 10/14/21 14:39 CGR [id number]) Occupational Therapy Current Condition Current Condition Evaluation Date 10/14/21 Treatment Diagnosis SOB, R pleural effusion, Stage iV ovarian CA on chemo M3 OT- IP Subjective and Pain Start: 10/14/21 14:34 Freq: Status: Active Protocol: Document 10/14/21 14:34 CGR (Rec: 10/14/21 14:39 CGR [id number]) OT- Subjective Occupational Therapy Visit Type Type Initial Evaluation Visit Start Time 13:16 Visit Stop Time 13:34 Total Visit Minutes 18 OT Pain Assessment Pain When Pain Assessed At Rest Pain Present Pain Present Denied Pain M4 OT- IP ADL's Start: 10/14/21 14:34 Freq: Status: Active Protocol: Document 10/14/21 14:34 CGR (Rec: 10/14/21 14:39 CGR [id number]) OT [id number] Comments OT Self-Feeding Comments not meal time OT ADL-Grooming General Evaluation Grooming Ability Independent OT ADL-Oral Care Comments Oral Care Comments not performed OT ADL-Dressing General Eval Lower Body Dressing Ability Independent Areas Needing Assistance Socks OT ADL-Toileting General Evaluation Toileting Ability Independent OT ADL-Bathing Comments OT Bathing Comments not performed M5 OT- IP IADL's Start: 10/14/21 14:34 Freq: Status: Active Protocol: Document 10/14/21 14:34 CGR (Rec: 10/14/21 14:39 CGR [id number]) OT-Instrumental Activities of Daily Living Deficits IADL Deficits Identified No Deficits Home Safety Awareness Awareness of Need for Assistance at Home Good Awareness Ability to Problem Solve Emergency Able to Problem Solve Situations Medication Management Medication Management No Deficits Identified Money Management Money Management No Deficits Identified Meal Preparation Meal Preparation No Deficits Identified Barrel Rifler Broach Barrel Rifler Broach No Deficits Identified M6 OT- IP Functional Cognition Start: 10/14/21 14:34 Freq: Status: Active Protocol: Document 10/14/21 14:34 CGR (Rec: 10/14/21 14:39 CGR [id number]) Cognitive Factors Limiting Selfcare Function Cognitive Ability Level of Alertness Alert Patient Orientation Name,Age,Birthday,Month,Date, Year,Day of Week,Place, Situation Attention Span Ability Capable of Focused Attention, Capable of Sustained Attention Ability to Follow Commands Able to Follow Multi-Step Commands OT- Vision and Hearing OT- Hearing Assessment OT- Hearing Assessment WFL OT- Vision Assessment Vision History Cataracts Visual Acuity Glasses For Reading Visual Attentiveness WFL Occular Pursuits WFL Visual Convergence WFL Vision Assessment Comments hx of cateract sx M7 OT- IP Mobility and Balance Start: 10/14/21 14:34 Freq: Status: Active Protocol: Document 10/14/21 14:34 CGR (Rec: 10/14/21 14:39 CGR [id number]) OT- Bed Mobility Assessment Rolling Type of Rolling Roll to Left Level of Assistance Independent Supine to Sit Supine to Sit Assist Independent Scooting Scooting to Edge of Bed Independent OT-Transfer Assessment Sit to and From Stand Sit to and from Stand Independent Transfers Transfer Ability Independent Technique Transfer Destination Bed,Chair,Toilet Transfer Technique Stand Step Pivot Devices Transfer Assistive Devices Gait Belt Comments Mobility Comments mobility around the room with IND. OT- Balance Assessment Sitting Balance and Reactions Static Sitting Balance Ability Normal Dynamic Sitting Balance Ability Normal M8 OT- IP Objective Assessments Start: 10/14/21 14:34 Freq: Status: Active Protocol: Document 10/14/21 14:34 CGR (Rec: 10/14/21 14:39 CGR [id number]) OT Gross Range of Motion Upper Extremity Range of Motion Assessment Within Functional Limits OT Strength Upper Extremity Strength Assessment Within Functional Limits Comments Strength Comments 4/5 OT- Coordination Assessment Upper Extremity Finger to Nose Test Within Functional Limits Finger Tapping Test Within Functional Limits OT-Muscle Tone Assessment Muscle Tone WNL Yes OT Sensation Assessment Edema Edema Absent M9 OT- IP Assessment and Plan Start: 10/14/21 14:34 Freq: Status: Active Protocol: Document 10/14/21 14:34 CGR (Rec: 10/14/21 14:39 CGR [id number]) OT Summary Assessment and Plan Potential Rehabilitation Potential Excellent Analytic Complexity at Evaluation Low Summary Progress Towards Goals Goals Met Assessment Summary Pt presents as a low complexity evaluation at her baseline for ADls and functional mobility. No further OT needs. Frequency of Treatment Frequency Of Treatment Discharge Discharge Recommendations OT Discharge Recommendations Home Transportation Needs at Discharge Private Vehicle
[2021-10-14 15:00] VITALS: BP 129/54; PULSE 91; RESP 18; TEMP 36.3; O2SAT 95
[2021-10-14 20:00] VITALS: BP 134/70; PULSE 126; RESP 16; TEMP 37.7; O2SAT 93
[2021-10-14 20:06] VITALS: BMI 23.8
[2021-10-14] MEDS: METOPROLOL IR 25 MG TABLET 75 MG PO (21:28)
[2021-10-14] MEDS: ATORVASTATIN 20 MG TABLET 10 MG PO (21:28)
[2021-10-15] VITALS (8 sets, daily range): BP systolic 113–160; BP diastolic 56–95; PULSE 78–130; RESP 16–18; TEMP 36.2–37.2; O2SAT 93–95
[2021-10-15 06:21] LABS: Mean Corpuscular HGB Conc 33.1 % (30-36); Mean Corpuscular Hemoglobin 23.9 PG (26-34); Mean Corpuscular Volume 72.1 fL (80-100); Platelet Count 77 X10^3/uL (150-400); Red Blood Cell Count 2.83 X10^6/uL (4.0-5.2); Red Cell Distribution Width 32.5 % (11.6-14.8)
[2021-10-15 06:24] LABS: BUN Creatinine Ratio 29.7 (6-22); Blood Urea Nitrogen 19 mg/dL (7-17); Calcium 7.9 mg/dL (8.4-10.2); Carbon Dioxide 25 mmol/L (22-32); Chloride 106 mmol/L (98-107); Estimated Glomerular Filt Rate > 60 mL/min (>60); Glucose 105 mg/dL (80-110); HEMOLYSIS < 15 (0-50); Potassium 4.4 mmol/L (3.4-5.1); Sodium 137 mmol/L (137-145)
[2021-10-15 06:36] LABS: Hemoglobin 6.8 g/dL (12.0-16.0); White Blood Cell Count 1.6 X10^3/uL (4.5-11.0)
[2021-10-15 06:37] LABS: Add Manual Diff / Slide Review YES; Hematocrit 20.4 % (36-46)
[2021-10-15 06:56] LABS: Anisocytosis 2+; Hypochromasia 1+; Microcytosis 2+; Neutrophils Absolute Manual 144 /uL (3000-5900); Total Cells Counted 100
[2021-10-15] MEDS: ONDANSETRON 4 MG/2 ML INJ IV (08:54)
--- NOTE | 2021-10-15 10:48 | PC.NURSE ---
Addendum entered by Jacinda Montgomery R.N. 10/15/21 15:06: 1300 1 unit PRBC infused pt guillermo well, states not hungry and just want to sleep 1500 son here visiting pt drinking milk shakes pt appears more lively this afternoon Original Note: pt c/o nausea this am, notified of nausea and lab levels. orders rc'd. zofran ivp for nausea that is now resolved. 1st unit PRBC 's infusing pt guillermo well. Echo in progress.
--- NOTE | 2021-10-15 12:55 | PT-IP ANOTE ---
Received PT orders and reviewed the chart, noting critical H&H 6.8/20.4 today. Pt currently receiving transfusion. Will follow up once labs have improved.
[2021-10-15] MEDS: ACETAMINOPHEN 325 MG TABLET 650 MG PO ×2 (12:56→18:21)
--- NOTE | 2021-10-15 14:09 | P.PN_ITS ---
Subjective Subjective Date Patient Seen: 10/15/21 Time Patient Seen: 10:30 Interval history: The pt reports feeling quite nauseous this morning. This did respond well to zofran. She denies significant abdominal pain. She denies any significant change in her respiratory status, primarily because she hasn't been very mobile. Exam Vital Signs (past 8 hours): - 10/15/21 08:58 10/15/21 10:13 10/15/21 10:36 Temperature 97.1 F L 97.1 F L Pulse Rate 78 78 Respiratory Rate 17 18 Blood Pressure 113/56 L 113/56 L Pulse Oximetry 94 Oxygen Delivery Method Room Air Oxygen Flow Rate 0 10/15/21 11:45 Temperature 98.4 F Pulse Rate 112 H Respiratory Rate 16 Blood Pressure 142/79 H Pulse Oximetry 94 Oxygen Delivery Method Oxygen Flow Rate 0 Oxygen Delivery Method Room Air Oxygen Flow Rate 0 Narrative Exam Narrative: GEN - alert, cooperative and no distress HEART - RRR, no murmurs LUNGS - clear to auscultation bilaterally ABD - flat, nondistended, normal bowel sounds, soft, nontender and no hepatomegaly, splenomegaly or masses EXT - no edema Objective Labs Result Diagrams: 10/15/21 05:56 10/15/21 05:56 Labs: Laboratory Results - last 24 hr 10/15/21 10/15/21 10/15/21 05:56 05:56 08:50 WBC 1.6 L* RBC 2.83 L Hgb 6.8 L* Hct 20.4 L* MCV 72.1 L MCH 23.9 L MCHC 33.1 RDW 32.5 H Plt Count 77 L Neut % (Auto) Not Reportable Lymph % (Auto) Not Reportable [place] % (Auto) Not Reportable Eos % (Auto) Not Reportable Baso % (Auto) Not Reportable Lymph # (Auto) Not Reportable [place] # (Auto) Not Reportable Baso # (Auto) Not Reportable Total Counted 100 Seg Neutrophils % 9.0 L Lymphocytes % (Manual) 57.0 H Atypical Lymphs % 18.0 H Monocytes % (Manual) 14.0 H Eosinophils % (Manual) 2.0 Neutrophils # (Manual) 144 L RBC Morphology Not Reportable Hypochromasia 1+ H Anisocytosis 2+ H Microcytosis 2+ H Sodium 137 Potassium 4.4 Chloride 106 Carbon Dioxide 25 BUN 19 H Creatinine 0.64 Estimated GFR > 60 BUN/Creatinine Ratio 29.7 H Glucose 105 Calcium 7.9 L Blood Type A Negative Antibody Screen Negative Crossmatch See Detail [facility] Medical History Atypical chest pain Cardiac arrhythmia, unspecified Malignant pleural effusion Pleural effusion Surgical History History of cataract removal with insertion of prosthetic lens Social History household members: children Smoking Status: Never smoker alcohol intake: current Assessment & Plan Assessment & Plan narrative: Pt is a 76yo woman with 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 Found to be in sinus tachycardia, responsive to beta blockers.? 1)? SOB:? Stable.? No hypoxia.? BNP minimally elevated at admission, last Echo in July reportedly reassuring.? Most likely due to tachycardia and pleural effusion, however improvement without intervention for effusion makes tachycardia most likely primary cause. - Continue to monitor for improvement - Echocardiogram pending 2)? Tachycardia:? Reportedly with questionable atrial fibrillation previously.? Telemetry revealing only sinus arrhythmia currently - with occasional 5-10 beat runs in sinus, then returning to sinus tachycardia.? Pt with good response to beta blockers in the ED after adenosine x 1. Had some periods without tachycardia early this morning, but tachycardic again now. - Continue telemetry - Increase home Metoprolol to 100mg BID - Echo as above 3)? Hypertension:? BP in good range - Continue home Benazepril - Metoprolol as above - Monitor BP closely as increase Metoprolol to ensure no hypotension 4)? Hyperlipidemia: - Continue home Atorvastatin, do question need to continue in light of metastatic cancer 5)? Stage IV mullerian cancer:? With large loculated right sided pleural effusion.? Effusion is growing, however pt without any respiratory distress/hypoxia.? She prefers to not have tapped at this point, and would be complicated by significant loculations. - Continue to monitor - If pt remains in hospital Saturday, will make Oncology aware 6)? Malnutrition:? 40lb weight loss in the past 2 years.? Secondary to cancer and chemotherapy. - Dietary consult 7)? Weakness:? Multifactorial from cancer, chemotherapy, tachycardia.? - PT consulted 8)? Chronic anemia:? From cancer and chemotherapy.? H/H fell again today. - Transfuse 1 unit PRBCs, check H/H after - Transfusion threshold set by Oncology of 11/16 FEN:? General diet DVT ppx:? Lovenox Code:? DNR Dispo:? Pending improvement and stabilization of heart rate, H/H. Time Spent With Patient Critical Care time: I spent a total of [] minutes of critical care time on this patient's care today; this time is exclusive of procedural time. Quality VTE Deep Vein Thrombosis/Pulmonary Embolism Present on Admission: No
[2021-10-15 14:59] LABS: Hematocrit 24.2 % (36-46); Hemoglobin 8.1 g/dL (12.0-16.0)
[2021-10-15] MEDS: METOPROLOL IR 25 MG TABLET 100 MG PO (21:17)
[2021-10-15] MEDS: ATORVASTATIN 20 MG TABLET 10 MG PO (21:17)
[2021-10-16 04:00] VITALS: BP 128/75; PULSE 90; RESP 18; TEMP 36.4; O2SAT 95
[2021-10-16 06:30] LABS: Hemoglobin 7.2 g/dL (12.0-16.0); Mean Corpuscular HGB Conc 34.2 % (30-36); Mean Corpuscular Hemoglobin 25.3 PG (26-34); Mean Corpuscular Volume 73.9 fL (80-100); Platelet Count 63 X10^3/uL (150-400); Red Blood Cell Count 2.86 X10^6/uL (4.0-5.2); Red Cell Distribution Width 27.6 % (11.6-14.8)
[2021-10-16 06:33] LABS: Alanine Aminotransferase 12 IU/L (<35); Albumin 2.7 g/dL (3.5-5.0); Albumin Globulin Ratio 0.7 (1.0-2.8); Alkaline Phosphatase 55 U/L (38-126); Aspartate Aminotransferase 18 IU/L (14-36); BUN Creatinine Ratio 35.3 (6-22); Bilirubin Total 0.7 mg/dL (0.2-1.3); Blood Urea Nitrogen 24 mg/dL (7-17); Calcium 7.6 mg/dL (8.4-10.2); Carbon Dioxide 26 mmol/L (22-32); Chloride 106 mmol/L (98-107); Estimated Glomerular Filt Rate > 60 mL/min (>60); Globulin 3.7 g/dL (1.7-4.1); Glucose 112 mg/dL (80-110); HEMOLYSIS < 15 (0-50); Potassium 4.6 mmol/L (3.4-5.1); Sodium 135 mmol/L (137-145); Total Protein 6.4 g/dL (6.3-8.2)
[2021-10-16 06:42] LABS: Hematocrit 21.1 % (36-46)
[2021-10-16 06:44] LABS: White Blood Cell Count 1.2 X10^3/uL (4.5-11.0)
[2021-10-16 06:45] LABS: Add Manual Diff / Slide Review YES
[2021-10-16 07:19] LABS: Neutrophils Absolute Manual 288 /uL (3000-5900); Total Cells Counted 50
[2021-10-16 07:21] LABS: Anisocytosis 3+
[2021-10-16 07:22] LABS: Hypochromasia 1+; Microcytosis 1+; Schistocytes 2+
[2021-10-16 07:23] LABS: Ovalocytes 1+
[2021-10-16 07:33] VITALS: BP 133/80; PULSE 111; RESP 16; TEMP 37.3; O2SAT 93
--- NOTE | 2021-10-16 10:06 | PT.IIE ---
Current Diagnoses Shortness of breath (10/13/21) Surgical History (Last Reviewed 10/13/21 @ 19:56 by Lizeth Arita DO) History of cataract removal with insertion of prosthetic lens Medical History (Last Reviewed 10/13/21 @ 19:56 by Lizeth Arita DO) Atypical chest pain Cardiac arrhythmia, unspecified Malignant pleural effusion Pleural effusion Physical Therapy Inpatient Evaluation/Re-Eval M1 PT/OT-IP Prior Functional Status Start: 10/14/21 14:34 Freq: NEEDED Status: Active Protocol: Document 10/16/21 10:06 AW (Rec: 10/16/21 12:20 AW [id number]) Medical Review Prior Functional Status Medical History Reviewed Yes Communication Pt is an effective verbal communicator. Mobility and Gait Pt was IND without AD at baseline. Activities of Daily Living and IADL's Pt is IND in all ADLs and IADLs at baseline. 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 Social History Household Members children Living Arrangements House Number of Floors (Floors) One Floor Number of Stairs To Enter/Railing? 3 ELLIOT with L rail up to porch at front of house. One step no railing at back entrance. Home Environment Standard Height Toilet,Walk in Shower,Built-In Shower Seat Home Equipment Front Wheel Walker,Straight Cane,Hand Held Shower,Grab Bars Near Toilet,Grab Bars In Shower Additional Social History Comment Pt lives with her son Olivier and the son's gf. They work on [employer] and are gone most of the day but return at night. M2 PT-IP Current Condition Start: 10/15/21 08:54 Freq: NEEDED Status: Active Protocol: Document 10/16/21 10:06 AW (Rec: 10/16/21 12:20 AW [id number]) Physical Therapy Current Condition Current Condition Evaluation Date 10/16/21 Treatment Diagnosis SOB; tachycardia; R pleural effusion; stage IV cancer; impaired gait Onset Date 10/13/21 M3 PT-IP Subjective Start: 10/15/21 08:54 Freq: NEEDED Status: Active Protocol: Document 10/16/21 10:06 AW (Rec: 10/16/21 12:20 AW [id number]) Subjective Physical Therapy Visit Type Type Initial Evaluation Visit Start Time 09:44 Visit Stop Time 10:06 Total Visit Minutes 22 Notes Pt's son was present for part of this encounter. Number of INVESTMENT SPECIALIST Visits 0 Physical Therapy Visit Comments Patient Comments I'm feeling more perky today. Patient Goals Pt hopes to return home with family support. Therapy Pain Assessment Pain When Pain Assessed During Mobility Pain Present Pain Present Denied Pain M4 PT-IP Mobility and Gait Start: 10/15/21 08:54 Freq: NEEDED Status: Active Protocol: Document 10/16/21 10:06 AW (Rec: 10/16/21 12:20 AW [id number]) PT-Bed Mobility Assessment Supine to Sit Supine to Sit Independent PT-Transfer Assessment Sit to and From Stand Sit to and from Stand Standby Assistance,Use of Upper Extremities Equipment Transfer Assistive Device None,Gait Belt Orthotic/Prosthetic Devices or Brace: No Transfers Transfer Destination Chair Transfer Technique pt ambulated Transfer Ability Level of Assist Independent Comments Mobility Comments Pt was lying in bed as PT arrived. BP supine was 135/46 HR 117. She sat up EOB. BP was 161/96 HR 130. She stood and stepped away from the bed for static balance assessment. She ambulated 120 feet without AD SBA. Gait speed was slow but each foot passed the other and pt had no overt LOB. On return to the room, she transferred to the chair IND. BP after activity was 160/66 HR 117. She was left sitting up with call light and tray table in reach. Gait Assessment Gait Gait Assistance Required: Standby Assistance Distance (Feet) 120 Assistive Devices Assistive Device None,Gait Belt Orthotic/Prosthetic Devices or Brace: No Gait Deviations General Gait Pattern Decreased Stride Length, Decreased Feet Clearance Factors Limiting Gait Function Factors Limiting Gait Function Poor Safety Awareness Comments Gait Comments See mobility comments for details. Stair Climbing Assessment Devices Stair Climbing Assistive Devices Left Railing Technique/Endurance Stair Climbing Direction Ascend and Descend Stair Climbing Technique Step to Step Number of Steps Climbed 5 Query Text: Stair Climbing Set # Repetitions (reps) 1 Comments Stair Climbing Comments Pt descended and ascended 5 steps at [employer] [facility] with step-to pattern and left rail SBA. She was not overtly SOB. PT-Balance Assessment Sitting Balance and Reactions Static Sitting Balance Ability Normal Dynamic Sitting Balance Ability Normal Standing Balance and Reactions Static Standing Balance Ability Good Dynamic Standing Balance Ability Good Device Used none Balance Tests Romberg WNL Tandem Standing able to stand semi-tandem M5 PT-IP Objective Assessments Start: 10/15/21 08:54 Freq: NEEDED Status: Active Protocol: Document 10/16/21 10:06 AW (Rec: 10/16/21 12:20 AW [id number]) Orientation Orientation/Cognition Level of Alertness Alert Orientation Name,Day of Week,Place, Situation Language Function Ability No Deficits Noted Safety Awareness Understands Safety Issues Memory Description No Deficits Noted Gross Range of Motion Lower Extremity ROM Assessment Within Functional Limits Strength Lower Extremity Strength Assessment Bilaterally Impaired Hip 4/5 Knee 4+/5 ext; 4/5 flex Sensation Assessment Sensation Gross Sensation WNL M6 PT-IP Treatment Start: 10/15/21 08:54 Freq: NEEDED Status: Active Protocol: Document 10/16/21 10:06 AW (Rec: 10/16/21 12:20 AW [id number]) Physical Therapy Treatment Education Education Provided Safety M7 PT-IP Assessment and Plan Start: 10/15/21 08:54 Freq: NEEDED Status: Active Protocol: Document 10/16/21 10:06 AW (Rec: 10/16/21 12:20 AW [id number]) PT Summary Assessment and Plan Potential Status of Condition at Evaluation Stable Summary Impairments Strength,Balance,Gait Assessment Summary Rhona is a 76 yo woman who is undergoing treatment for stage IV cancer. She is admitted with tachycardia, SOB, R pleural effusion. She is independent in all regards at baseline. On assessment, strength was impaired and gait speed was slow but pt had no overt LOB and was safe with all mobility, appearing near or at her baseline. She has assist at home from her son but he does work long hours on [employer]. Pt would benefit from increased assist at home but is safe to discharge when medically appropriate. No acute PT needs identified. PT will discharge. Frequency of Treatment Frequency Of Treatment Discharge Recommendations To Nursing Amount of Assist Needed Standby Assistance,1 Person Assist Discharge Recommendations PT Discharge Recommendations Home with Assistance Transportation Needs at Discharge Private Vehicle
[2021-10-16] MEDS: FERROUS SULFATE 325 MG TABLET PO (10:33)
[2021-10-16] MEDS: lisinopriL 10 MG TABLET PO (10:34)
[2021-10-16] MEDS: METOPROLOL IR 25 MG TABLET 100 MG PO ×2 (10:34→20:44)
[2021-10-16] MEDS: ACETAMINOPHEN 325 MG TABLET 650 MG PO (12:33)
[2021-10-16 14:14] VITALS: BP 133/79; PULSE 83; RESP 16; TEMP 36; O2SAT 98
[2021-10-16 18:20] VITALS: BP 135/64; PULSE 113; RESP 16; TEMP 36.8; O2SAT 94
--- NOTE | 2021-10-16 18:20 | PM.PN.1 ---
Subjective Subjective Date Patient Seen: 10/16/21 Time Patient Seen: 18:21 Interval history: Patient feeling well. Able to ambulate without difficulty. No chest pain or current sob. no abdominal pain or any pain Exam Vital Signs (past 8 hours): - 10/16/21 14:14 Temperature 96.8 F L Pulse Rate 83 Respiratory Rate 16 Blood Pressure 133/79 Pulse Oximetry 98 Oxygen Delivery Method Room Air Oxygen Flow Rate 0 Narrative Exam Narrative: pt alert and oriented in NAD AF, VSS Chest Cta bilaterally with decreased bs right lower lobe Cor: RRR without murmur Abdomen: positive bowel sounds, soft, nontender extremities: no edema Objective Labs Result Diagrams: 10/16/21 06:05 10/16/21 06:05 Labs: Laboratory Results - last 24 hr 10/16/21 10/16/21 06:05 06:05 WBC 1.2 L* RBC 2.86 L Hgb 7.2 L Hct 21.1 L MCV 73.9 L MCH 25.3 L MCHC 34.2 RDW 27.6 H Plt Count 63 L Neut % (Auto) Not Reportable Lymph % (Auto) Not Reportable [place] % (Auto) Not Reportable Eos % (Auto) Not Reportable Baso % (Auto) Not Reportable Lymph # (Auto) Not Reportable [place] # (Auto) Not Reportable Baso # (Auto) Not Reportable Total Counted 50 Seg Neutrophils % 20.0 L D Band Neutrophils % 4.0 Lymphocytes % (Manual) 44.0 Atypical Lymphs % 6.0 H Monocytes % (Manual) 24.0 H Basophils % (Manual) 2.0 H Neutrophils # (Manual) 288 L RBC Morphology See below Hypochromasia 1+ H Anisocytosis 3+ H Microcytosis 1+ H Ovalocytes 1+ H Schistocytes 2+ H Sodium 135 L Potassium 4.6 Chloride 106 Carbon Dioxide 26 BUN 24 H Creatinine 0.68 Estimated GFR > 60 BUN/Creatinine Ratio 35.3 H Glucose 112 H Calcium 7.6 L Total Bilirubin 0.7 AST 18 ALT 12 Alkaline Phosphatase 55 Total Protein 6.4 Albumin 2.7 L Globulin 3.7 Albumin/Globulin Ratio 0.7 L PFSH Medical History Atypical chest pain Cardiac arrhythmia, unspecified Malignant pleural effusion Pleural effusion Surgical History History of cataract removal with insertion of prosthetic lens Social History household members: children Smoking Status: Never smoker alcohol intake: current Assessment & Plan Assessment & Plan narrative: 1)? SOB:? Significantly improved this morning.? No hypoxia.? BNP minimally elevated at admission, last Echo in July reportedly reassuring.? Most likely due to tachycardia and pleural effusion, however improvement without intervention for effusion makes tachycardia most likely primary cause. - Continue to monitor for improvement - Echocardiogram shows no obvious etiology 2)? Tachycardia:? Reportedly with afib/flutter? Telemetry revealing only sinus arrhythmia currently - with occasional 5-10 beat runs in sinus, then returning to sinus tachycardia.? Pt with good response to beta blockers in the ED after adenosine x 1. - Continue telemetry - continue Metoprolol to 50mg BID - Echo reviewed. did not show clear etiology for etiology of tachycardia or sob 3)? Hypertension:? BP in good range - Patient has - Metoprolol as above - Monitor BP closely as increase Metoprolol to ensure no hypotension 4)? Hyperlipidemia: - Continue home Atorvastatin, do question need to continue in light of metastatic cancer 5)? Stage IV mullerian cancer:? With large loculated right sided pleural effusion.? Effusion is growing, however pt without any respiratory distress/hypoxia.? She prefers to not have tapped at this point, and would be complicated by significant loculations. - Continue to monitor - If pt remains in hospital Saturday, will make Oncology aware -Appreciate Dr. Huggins visiting with patient. 6)? Malnutrition:? 40lb weight loss in the past 2 years.? Secondary to cancer and chemotherapy. - Dietary consult 7)? Weakness:? Multifactorial from cancer, chemotherapy, tachycardia.? - PT consulted 8)? Chronic anemia:? From cancer and chemotherapy.? Slight drop in H/H from yesterday. - Continue to trend - Transfusion threshold 11/16; set by oncology. Will reassess in am 9) pleural effusion secondary to malignancy, currently stable on room air Plan: continue per oncology 10) Pancytopenia secondary to malignancy Plan: recheck tomorrow and consider transfusion if continues to decline Patient had discussion with Dr. Huggins today who feels cancer is affecting bone marrow and she is failing all possible chemotherapy options. Patient will discuss with family and likely home with hospice pending conversation. FEN:? General diet DVT ppx:? Lovenox Code:? DNR Time Spent With Patient Critical Care time: I spent a total of [] minutes of critical care time on this patient's care today; this time is exclusive of procedural time. Quality VTE Deep Vein Thrombosis/Pulmonary Embolism Present on Admission: No
[2021-10-16 20:00] VITALS: BP 143/76; PULSE 122; RESP 16; TEMP 37.2; O2SAT 93
[2021-10-16] MEDS: ATORVASTATIN 20 MG TABLET 10 MG PO (20:44)
[2021-10-17] VITALS (7 sets, daily range): BP systolic 109–150; BP diastolic 55–80; PULSE 69–100; RESP 15–16; TEMP 36.1–37.9; O2SAT 93–100
[2021-10-17] MEDS: ACETAMINOPHEN 325 MG TABLET 650 MG PO ×2 (00:33→05:46)
[2021-10-17 05:57] LABS: Hematocrit 21.3 % (36-46); Hemoglobin 7.1 g/dL (12.0-16.0); Mean Corpuscular HGB Conc 33.3 % (30-36); Mean Corpuscular Volume 75.1 fL (80-100); Platelet Count 62 X10^3/uL (150-400); Red Blood Cell Count 2.84 X10^6/uL (4.0-5.2)
[2021-10-17 06:01] LABS: Add Manual Diff / Slide Review YES; White Blood Cell Count 1.3 X10^3/uL (4.5-11.0)
[2021-10-17 06:02] LABS: BUN Creatinine Ratio 36.1 (6-22); Blood Urea Nitrogen 26 mg/dL (7-17); Calcium 7.8 mg/dL (8.4-10.2); Carbon Dioxide 25 mmol/L (22-32); Chloride 106 mmol/L (98-107); Estimated Glomerular Filt Rate > 60 mL/min (>60); Glucose 95 mg/dL (80-110); HEMOLYSIS < 15 (0-50); Potassium 4.4 mmol/L (3.4-5.1); Sodium 137 mmol/L (137-145)
[2021-10-17 07:20] LABS: Neutrophils Absolute Manual 208 /uL (3000-5900); Total Cells Counted 100
[2021-10-17 07:21] LABS: Anisocytosis 3+; Hypochromasia 1+; Microcytosis 1+; Schistocytes 1+
[2021-10-17 07:22] LABS: Ovalocytes 1+
[2021-10-17 07:23] LABS: Platelet Estimate Decr
[2021-10-17] MEDS: SODIUM CHLORIDE 0.9% FLUSH 10 ML IV (08:29)
[2021-10-17] MEDS: FERROUS SULFATE 325 MG TABLET PO (08:30)
--- NOTE | 2021-10-17 10:47 | PC.NURSE ---
08:[address] Ogden via phone and notified her that I held metoprolol and lisinopril due to decreased blood pressure 109/55 and heart rate 69, Dr. Ogden says this is ok.
--- NOTE | 2021-10-17 11:21 | DIET.CONS ---
Dietary Consultation Note Admission Date: 10/13/2021 19:53 Assessment: 76y F admitted for SOB referred to nutrition for hx cancer and hx weight loss. Pt c MNA 14 and Popeye 20. Met c pt at bedside. Pt diagnosed c mellerean adenocarcinoma in 2018, underwent surgery and chemo several times. Pt recently found out cancer has spread to bone marrow, oncologist gives her 1y to live. Pt lost significant weight from [id number] but has been weight stable this year. Pt attributes weight stability to strict nutrition efforts on her part to maintain weight. Pt eating yogurt and ice cream daily to avoid further weight loss. Pt had 31% unintentional weight loss over 2y with 15% loss in 1y. Pt missing front four teeth. 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 Ht: 152.4 cm Wt: 55.338 kg BMI: 23.8 UBW: 80kg Last BM: 10/17/21 (10/17/21 10:44) MNA: 14 Popeye Score: 20 Diet: 10/13/21 Breakfast Heart Healthy Diet Diet Modifications: Nutrition Percent Meal Consumed 75% 10/16/21 18:07 Percent Meal Consumed 50% 10/16/21 12:40 Percent Meal Consumed 40% 10/15/21 18:00 Percent Meal Consumed 0% 10/15/21 13:13 Labs: RBC 2.84 X10^6/uL (4.0-5.2) L 10/17/21 05:36 Hgb 7.1 g/dL (12.0-16.0) L 10/17/21 05:36 Hct 21.3 % (36-46) L 10/17/21 05:36 Creatinine 0.72 mg/dL (0.52-1.04) 10/17/21 05:36 Lactate 1.1 mmol/L (0.7-2.1) 10/13/21 19:00 NT-Pro-B Natriuret Pep 1030 pg/mL (<450) H 10/13/21 19:00 Nutrition Diagnosis: 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 Interventions: 1. Reinforced pts efforts at small frequent meals with high kcal and protein intake. Collaborated c pt on strategies to attain this intake. 2. Sending ONS Ensure and yogurt on meal trays for pt to snack between meals while hospitalized. EER: 1900kcals (35kcal/kg), 70-75g PRO (1.3-1.4g/kg per PCM) Monitoring/Evaluations: ONS tolerance Electronically Signed by: Charline Sampson 10/17/21 11:21 Clinical Dietitian [address] [address]
--- NOTE | 2021-10-17 11:32 | P.DS_ITS ---
History of Present Illness History of Present Illness Date Patient Seen: 10/17/21 Time Patient Seen: 11:32 Date of Onset of Symptoms: 09/27/21 Chief complaint: sob, sore under ribs lt side Discharge Providers Provider Date of admission: 10/13/21 19:53 Discharge Date: 10/17/21 Primary care physician: Kalani Ogden MD Consults: 10/14/21 11:06 Consult to Occupational Therapy Evaluate & Treat Comment: Physician Instructions: Evaluate and treat Consult to Physical Therapy Evaluate & Treat Comment: Physician Instructions: Evaluate and Treat 10/14/21 13:05 Consult to Dietitian, Adult Routine Comment: Reason For Exam: malnutrition Discharge provider: Kalani Ogden MD Summary Hospital Course Discharge Diagnosis: Metastatic ovarian cancer Pleural effusion secondary to metastatic ovarian cancer Pancytopenia secondary to metastatic ovarian cancer Atrial tachycardia, improved with medication adjustment History of atrial fibrillation flutter; anticoagulation contraindicated due to pancytopenia Hypertension, treated Hyperlipidemia, treated Hospital Course: This max 76-year-old female with a long history of ovarian cancer of mullerian origin with metastases failing immunotherapy and chemotherapy was admitted to the hospital for shortness of breaths which most likely was related to atrial tachycardia. Patient with a history of atrial fibrillation/flutter previously and undergoing workup by Cardiology at [facility]. Currently with a loop recorder however workup somewhat halted due to overall prognosis from metastatic ovarian carcinoma. Patient was admitted to the hospital and echo did not show clear etiology for atrial tachycardia, atrial fibrillation or shortness of breath. Pleural effusion appeared to be malignancy and CT scan showed now with metastases in the pleura and worsening pleural ef fusion but pleural effusion loculated so thoracentesis was not performed. Patient was treated with Lopressor and this was gradually increased to 100 mg twice daily of the immediate release. She had been on 25 mg of the sustained release at home. Her dose was held this morning due to systolic blood pressure of 109 and heart rate of 60. Overall her heart rate has come down and she is not symptomatic and she is stable on room air and is able to perform activities of daily living without any symptoms or increase in her heart rate. She will be discharged home today. We will have home health involved. We will consult hospice. Appreciate Dr. Dunham. Consultation in the hospital. He will help facilitate discussion with hospice. We will arrange for hospice informational. I will see her in the clinic in 2 weeks. I will be out of town at that time so will have her see Dr. Diop. Routine discharge instructions given Status at Discharge Cognitive/behavioral status at discharge: oriented and at baseline, oriented Functional status at discharge: independent ambulation Overall status at discharge: patient is progressing back to baseline Exam Vital Signs (past 8 hours): - 10/17/21 05:56 10/17/21 08:30 10/17/21 08:48 Temperature 97.0 F L 97.9 F Pulse Rate 93 H 69 100 H Respiratory Rate 16 16 Blood Pressure 139/76 109/55 L 113/69 Pulse Oximetry 100 94 Oxygen Flow Rate 0 0 10/17/21 08:30 Temperature Pulse Rate 69 Respiratory Rate Blood Pressure 109/55 L Pulse Oximetry Oxygen Flow Rate Oxygen Delivery Method Room Air Oxygen Flow Rate 0 Narrative Exam Narrative: Alert and oriented x3 Afebrile vital signs are stable Neck: Supple Chest: Decreased breath sounds right base greater than left base but no wheezes no rhonchi no crackles Cor: Irregularly irregular rhythm at a well controlled rate with distant S1-S2 Abdomen: Positive bowel sounds, soft, nontender, nondistended Extremities: No edema, pulses intact Neurologic exam nonfocal Objective Labs Result Diagrams: 10/17/21 05:36 10/17/21 05:36 Labs: Laboratory Results - last 24 hr 10/17/21 10/17/21 05:36 05:36 WBC 1.3 L* RBC 2.84 L Hgb 7.1 L Hct 21.3 L MCV 75.1 L MCH 25.0 L MCHC 33.3 RDW 28.0 H Plt Count 62 L Neut % (Auto) Not Reportable Lymph % (Auto) Not Reportable [place] % (Auto) Not Reportable Eos % (Auto) Not Reportable Baso % (Auto) Not Reportable Lymph # (Auto) Not Reportable [place] # (Auto) Not Reportable Baso # (Auto) Not Reportable Total Counted 100 Seg Neutrophils % 14.0 L Band Neutrophils % 2.0 L Lymphocytes % (Manual) 68.0 H Atypical Lymphs % 4.0 H Monocytes % (Manual) 12.0 H Neutrophils # (Manual) 208 L Platelet Estimate Decr RBC Morphology See below Hypochromasia 1+ H Anisocytosis 3+ H Microcytosis 1+ H Ovalocytes 1+ H Schistocytes 1+ H Sodium 137 Potassium 4.4 Chloride 106 Carbon Dioxide 25 BUN 26 H Creatinine 0.72 Estimated GFR > 60 BUN/Creatinine Ratio 36.1 H Glucose 95 Calcium 7.8 L [facility] Medical History Atypical chest pain Cardiac arrhythmia, unspecified Malignant pleural effusion Pleural effusion Surgical History History of cataract removal with insertion of prosthetic lens Social History household members: children Smoking Status: Never smoker alcohol intake: current Discharge Assessment & Plan Assessment and Plan Assessment: Metastatic ovarian cancer Pleural effusion secondary to metastatic ovarian cancer Pancytopenia secondary to metastatic ovarian cancer Atrial tachycardia, improved with medication adjustment History of atrial fibrillation flutter; anticoagulation contraindicated due to pancytopenia Hypertension, treated Hyperlipidemia, treated Plan of Treatment: Discharge to home with home health. She will stop benazepril at home. She will take metoprolol extended release 25 mg in the evening and 50 mg in the morning. She will monitor blood pressure and was given instructions to hold metoprolol if her systolic blood pressure is under 100 or heart rate under 60. She will foll ow-up with Dr. Dunham. She will have a hospice informational. She will follow-up in our clinic in 2 weeks. I will be out of the office and so she will see Dr. Diop. She will continue same other medications. Discharge Plan Discharge Plan Patient Disposition: Home Health Service Discharge orders & Medications Prescriptions: New metoprolol succinate 50 mg Tablet Extended Release 24 Hr 50 mg PO DAILY Qty: 90 0RF metoprolol succinate 25 mg Tablet Extended Release 24 Hr 25 mg PO DAILY Qty: 90 0RF Continued atorvastatin 10 mg tablet 10 mg PO DAILY colchicine [Colcrys] 0.6 mg tablet 0.6 mg PO DIRECTED Label Comments: Take 2-3 tablet by mouth single dose as needed Take 2 tablets at onset of gout attack, then one tablet one hour later. Maximum 3 tablets per acute attack. meloxicam 7.5 mg tablet 1 tab PO BID Label Comments: Take 1 tablet by mouth twice a day as needed calcium 600 mg Capsule 600 mg PO DAILY cranberry 500 mg Capsule 650 mg PO DAILY glucosamine sulfate 750 mg Tablet 1,500 mg BID alendronate 70 mg Tablet 70 mg PO QWEEK Rx Instructions: takes saturday ferrous sulfate [iron] 325 mg (65 mg iron) Tablet 325 mg PO DAILY Discontinued benazepril 10 MG tablet 10 mg PO QDAY Qty: 0 Avastin 25 mg/mL Solution 900 mg IV Q3W metoprolol tartrate 25 MG tablet 25 mg PO BID Rx Instructions: 1900 Follow up/Referrals: Kalani Ogden MD [Primary Care Provider] - Discharge Data Primary Care Provider: Kalani Ogden Quality VTE Deep Vein Thrombosis/Pulmonary Embolism Present on Admission: No
[2021-10-17] MEDS: METOPROLOL ER 25 MG TABLET PO (12:32)
--- NOTE | 2021-10-17 13:31 | CM.DPNOTE ---
Faxed referral to [facility] per [place]. Anay Tavares CM Assist
--- NOTE | 2021-10-17 13:49 | CM.DPC ---
DCP Cont: Patient is to be discharged home today. Spoke to Dr. Ogden, and had her sign an order for home health. Patient did give ok to contact son, Olivier, with any additional questions. Asked patient if she has any preferences upon home health, and stated, she does not. Spoke to son, Rl, who works on [employer] that patient is to discharge today. He mentioned that she has friends to pick her up if needed. Patient did state, she is interested in hospice. Dr. Ogden is asking for an informational visit to be set up, and went ahead and [facility] the referral for an informational visit. [facility] is the agency on the calendar. Called [facility] at [place]. She stated, P.T. can see patient tomorrow. Gave patient a brochure. Son is not able to stay with her tonight, but daughter in law can stay with her tomorrow. Patient has been ambulatory. She stated, she knows that her condition is deteriorating, and she will just need to get her children together to tell them. P: Patient is discharging home today with [facility], and [facility] been [facility] for an informational visit. Karen Lynch RN/[employer]
== END 2021-10-17 14:45 | disposition home health service (06) | DRG 755 ==
LOC: ED 18:32 → AC 19:56
PROVIDERS: Emergency Medicine; Admitting Provider Family Medicine; Emergency Provider Emergency Medicine; Family Provider Obstetrics & Gynecology; PCP Family Medicine; Referring Provider Emergency Medicine; Visit Provider Family Medicine
DX: C56.9 Malignant neoplasm of unspecified ovary (principal); J91.0 Malignant pleural effusion; D61.818 Other pancytopenia; E46 Unspecified protein-calorie malnutrition; R00.0 Tachycardia, unspecified; I10 Essential (primary) hypertension; E78.5 Hyperlipidemia, unspecified; R11.0 Nausea; D64.81 Anemia due to antineoplastic chemotherapy; T45.1X5A Adverse effect of antineoplastic and immunosuppressive drugs, initial encounter; Z20.822 Contact with and (suspected) exposure to COVID-19; Z66 Do not resuscitate; Z68.23 Body mass index [BMI] 23.0-23.9, adult
CPT/HCPCS: 36415; 36430; 36591; 71045; 71275; 80048; 80053; 82550; 83605; 83690; 83735; 83880; 84145; 84484; 85007; 85014; 85018; 85025; 85379; 85610; 85730; 86850; 86900; 86901; 87635; 93005; 93010; 93306; 96374; 97162; 97165; 99223; 99232; 99285; C9803; P9016; J0153; J1650; J2405; Q9967

== ENCOUNTER → 2021-11-16 10:20 | Outpatient (CLI) | payer OTHER, MEDICARE, SELFPAY ==
[2021-11-16 10:46] LABS: Hematocrit 23.6 % (36-46); Hemoglobin 7.8 g/dL (12.0-16.0)
== END ==
PROVIDERS: Family Provider Obstetrics & Gynecology; PCP Family Medicine; Referring Provider Family Medicine; Visit Provider Family Medicine
DX: C56.3 Malignant neoplasm of bilateral ovaries (principal)
CPT/HCPCS: 85014; 85018